=== PATIENT | male | born 1975 | race Caucasian/White ===

== ENCOUNTER 2018-12-21 18:07 | Emergency (ER) | payer OTHER ==
[2018-12-21] MEDS ORDERED: ONDANSETRON 4 MG/2 ML VIAL ONE (18:37)
[2018-12-21] MEDS ORDERED: FENTANYL CITR 100 MCG/2 ML ONE ×2 (18:37→21:26)
[2018-12-21 18:56] LABS: Absolute Lymphocytes (CBC) 0.7 K/uL (0.7-4.9); Absolute Monocytes 0.7 K/uL (0.1-1.3); Absolute Neutrophil 7.7 K/uL (1.8-8.0); Basophils % 0.9 % (0-1.3); Eosinophils % 3.3 % (0-4.4); Hematocrit 31.6 % (39.6-49.0); Lymphocytes % 7.2 % (15.3-44.8); MPV 7.4 fL (7.6-11.3); Monocytes % 7.6 % (3.3-12.3); RBC Red Blood Cell Count 3.14 M/uL (4.33-5.43)
[2018-12-21 19:02] LABS: Protime INR 1.43
[2018-12-21] MEDS ORDERED: LEVALBUTEROL 1.25 MG/3 ML NEB ONE (19:08)
[2018-12-21] MEDS ORDERED: FUROSEMIDE 100 MG/10 ML VIAL IV ONE (19:09)
--- NOTE | 2018-12-21 19:11 | RAD REPORT ---
EXAM DESCRIPTION: RAD - Chest Single View - 12/21/2018 6:51 pm CLINICAL HISTORY: Shortness of breath, chest pain, history of cirrhosis COMPARISON: None. TECHNIQUE: AP portable chest image was obtained 1845 hour . FINDINGS: Lung volumes are low. Left base parenchymal opacification is present. Small left pleural e ffusion is evident. Heart and vasculature are normal. No pneumothorax. No acute bony abnormality seen . No acute aortic findings suspected. IMPRESSION: Small left pleural effusion with left base parenchymal opacification that could be pneum onia, atelectasis or a combination.
[2018-12-21 19:32] LABS: ALT/SGPT 56 U/L (12-78); AST/SGOT 102 U/L (15-37); Albumin 1.5 g/dL (3.4-5.0); Alkaline Phosphatase 116 U/L (45-117); BUN Blood Urea Nitrogen 18 mg/dL (7-18); Bicarbonate 23 mmol/L (21-32); Bilirubin Direct 0.9 mg/dL (0-0.2); Bilirubin Total 1.7 mg/dL (0.2-1.0); CKMB Creatine Kinase MB 2.7 ng/mL (0.3-3.6); Creatine Phosphokinase 141 U/L (39-308); Glucose Level 132 mg/dL (74-106); Lipase 240 U/L (73-393); Potassium 4.3 mmol/L (3.5-5.1); Protein, Total 5.4 g/dL (6.4-8.2); Sodium Level 139 mmol/L (136-145); Troponin (Emerg Dept Use Only) 0.02 ng/mL (0.0-0.045)
[2018-12-21 19:49] LABS: NT PRO-BNP 602 pg/mL (<125)
[2018-12-21] MEDS ORDERED: NA CHLORIDE 0.9% 250 ML ONE (20:03)
[2018-12-21] MEDS ORDERED: CEFTRIAXONE/SWI 1gm 1 GM/10 ML SYR ONE (20:03)
[2018-12-21] MEDS ORDERED: AZITHROMYCIN 500 MG INJ IVPB ONE (20:03)
[2018-12-21] MEDS ORDERED: DIAZEPAM 10 MG/2 ML INJ SYRINGE ONE (20:10)
--- NOTE | 2018-12-21 20:14 | EDPHYS ---
Physician Documentation [facility] Name: Poli Frankel Jr Age: 43 yrs Sex: Male : 1975 Arrival Date: 12/21/2018 Time: 18:10 Bed 5 Private MD: ED Physician Mariano Reese HPI: 12/21 18:30 This 43 yrs old Male presents to ER via Wheelchair with complaints of jr8 Swelling, Shortness Of Breath. 18:30 Onset: The symptoms/episode began/occurred gradually, 1 week(s) ago. Associated signs jr8 and symptoms: Pertinent positives: cough, shortness of breath, abdominal swelling and edema, Pertinent negatives: chest pain, constipation, diarrhea, fever, vomiting. Modifying factors: the patient symptoms are aggravated by activity, talking. The patient has experienced similar episodes in the past, with the last episode occurring 2 month(s) ago. The patient has not recently seen a physician. Patient reports a history of cirrhosis with multiple admissions to [facility] for paracentesis. He was last admitted in October but left the hospital AMA before he had a successful paracentesis performed. He states since then he has had gradual worsening of his ascites and pedal edema, and came in today because he was having increased SOB. Denies fever. Reports cough. . Historical: - Allergies: 18:11 No Known Allergies; aa5 - PMHx: 18:11 Cirrhosis; aa5 - PSHx: 18:11 Hernia repair; eye sx; Appendectomy; aa5 - Immunization history:: Flu vaccine is not up to date. - Social history:: Smoking status: Patient/guardian denies using tobacco. - Ebola Screening: : No symptoms or risks identified at this time. ROS: 18:30 ENT: Negative for injury, pain, and discharge, Cardiovascular: Negative for chest pain, jr8 palpitations, and edema. 18:30 MS/Extremity: Negative for injury and deformity, Skin: Negative for injury, rash, and discoloration, Neuro: Negative for headache, weakness, numbness, tingling, and seizure. 18:30 Constitutional: Positive for malaise, poor PO intake, Negative for body aches, chills, fever. 18:30 Respiratory: Positive for cough, orthopnea, shortness of breath, Negative for sputum production, wheezing. 18:30 Abdomen/GI: Positive for abdominal distension, Negative for nausea, vomiting, and diarrhea. Exam: 18:49 ENT: Nares patent. No nasal discharge, no septal abnormalities noted. Tympanic jr8 membranes are normal and external auditory canals are clear. Oropharynx with no redness, swelling, or masses, exudates, or evidence of obstruction, uvula midline. Mucous membranes moist. 18:49 Back: No spinal tenderness. No costovertebral tenderness. Full range of motion. Skin: Warm, dry with normal turgor. Normal color with no rashes, no lesions, and no evidence of cellulitis. 18:49 MS/ Extremity: Pulses equal, no cyanosis. Neurovascular intact. Full, normal range of motion. Neuro: Awake and alert, GCS 15, oriented to person, place, time, and situation. Cranial nerves II-XII grossly intact. Motor strength 5/5 in all extremities. Sensory grossly intact. Cerebellar exam normal. Normal gait. 18:49 Constitutional: The patient appears alert, awake, agitated, anxious, in obvious distress, mildly distressed. 18:49 Head/face: Noted is 18:49 Eyes: Pupils: equal, round, and reactive to light and accomodation, Extraocular movements: intact throughout, Conjunctiva: pale, Sclera: icterus, is present. 18:49 Cardiovascular: Rate: tachycardic, Rhythm: regular, Heart sounds: normal, no murmur, no rub, no gallop, Edema: 4+ edema to level of left lower thigh, left knee, left midcalf, left ankle, left foot, left toes, right lower thigh, right knee, right midcalf, right ankle, right foot and right toes. 18:49 Respiratory: mild respiratory distress is noted, Respirations: labored breathing, that is mild, pursed lip breathing, that is mild, tachypnea, that is mild, Breath sounds: are clear throughout. 18:49 Abdomen/GI: Inspection: distension, that is severe, Bowel sounds: normal, Palpation: nontender, in all quadrants, organomegaly is appreciated, hepatomegaly, Rectal exam: Indicators: Liver: is enlarged, ascites present. 18:49 Musculoskeletal/extremity: 18:54 ECG was reviewed by the Attending Physician. [facility] Vital Signs: 18:14 BP 165 / 138; Pulse 121; Resp 24 S; Temp 99.5(O); Pulse Ox 99% on R/A; Pain 10/10; aa5 19:12 BP 160 / 100; Pulse 115; Resp 18; Pulse Ox 98% on R/A; la1 20:06 BP 171 / 105; Pulse 115; Resp 18; Pulse Ox 98% on R/A; la1 20:59 BP 157 / 99; Pulse 111; Resp 20; Temp 99.3; Pulse Ox 99% on R/A; la1 21:33 BP 138 / 88; Pulse 111; Resp 16; Pulse Ox 98% on R/A; la1 MDM: 18:15 Patient medically screened. 8 18:52 Data reviewed: vital signs, nurses notes, EKG. Awaiting: labs results, X-ray results. [facility] 20:12 Data reviewed: lab test result(s), radiologic studies, plain films. Data interpreted: 8 Pulse oximetry: on room air is 98 %. Interpretation: normal. Counseling: I had a detailed discussion with the patient and/or guardian regarding: the historical points, exam findings, and any diagnostic results supporting the discharge/admit diagnosis, lab results, radiology results, the need to transfer to another facility, [facility] does not immediately have the required specialist. ED course: Dr. Drake consulted at [facility]. Accepted patient for further work up . 12/21 18:28 Order name: Basic Metabolic Panel; Complete Time: 19:55 12/21 18:28 Order name: Blood Culture Adult (2) [facility] 12/21 18:28 Order name: CBC with Diff; Complete Time: 19:11 [facility] 12/21 18:28 Order name: Ckmb; Complete Time: 19:55 [facility] 12/21 18:28 Order name: CPK; Complete Time: 19:55 [facility] 12/21 18:28 Order name: Lactate; Complete Time: 19:37 [facility] 12/21 18:28 Order name: LFT's; Complete Time: 19:55 [facility] 12/21 18:28 Order name: Lipase; Complete Time: 19:55 [facility] 12/21 18:28 Order name: Procalcitonin; Complete Time: 19:41 [facility] 12/21 18:28 Order name: Protime (+inr); Complete Time: 19:11 12/21 18:28 Order name: Ptt, Activated; Complete Time: 19:11 12/21 18:28 Order name: Troponin (emerg Dept Use Only); Complete Time: 19:55 12/21 18:28 Order name: AMMONIA; Complete Time: 19:15 12/21 18:28 Order name: Chest Single View XRAY; Complete Time: 19:12 12/21 18:28 Order name: Accucheck; Complete Time: 18:52 12/21 18:28 Order name: Cardiac monitoring; Complete Time: 18:35 12/21 18:28 Order name: EKG - Nurse/Tech; Complete Time: 18:52 12/21 18:28 Order name: IV Saline Lock - Large Bore; Complete Time: 18:36 12/21 18:28 Order name: Labs collected and sent; Complete Time: 18:36 12/21 19:37 Order name: NT PRO-BNP; Complete Time: 19:55 EDMS 12/21 18:28 Order name: O2 Per Protocol; Complete Time: 18:36 12/21 18:28 Order name: O2 Sat Monitoring; Complete Time: 18:36 12/21 18:28 Order name: Urine Dipstick-Ancillary (obtain specimen); Complete Time: 18:52 jr8 EC:37 Rate is 105 beats/min. Rhythm is regular. QRS [place] is Normal. RI interval is normal. jr8 QRS interval is normal. No ST changes noted. Interpreted by me. Reviewed by me. Administered Medications: 18:35 Drug: fentaNYL (PF) 75 mcg Route: IVP; Site: right jugular; la1 21:00 Follow up: Response: No adverse reaction; Pain is decreased la1 18:35 Drug: Zofran 4 mg Route: IVP; Site: right jugular; la1 21:00 Follow up: Response: No adverse reaction la1 19:13 Drug: Xopenex (3) 1.25 mg Route: Inhalation; la1 19:13 Drug: Lasix 60 mg Route: IVP; Site: right jugular; la1 21:00 Follow up: Response: pt diuresing, la1 20:06 Drug: Valium 2 mg Route: IVP; Site: right jugular; la1 21:00 Follow up: Response: No adverse reaction la1 20:07 Drug: Rocephin 1 grams Route: IV; Rate: calculated rate; Site: right jugular; la1 21:33 Follow up: IV Status: Completed infusion la1 20:07 Drug: Zithromax 500 mg Route: IVPB; Infused Over: 1 hrs; Site: right jugular; la1 21:00 Follow up: IV Status: Completed infusion la1 21:33 Follow up: IV Status: Completed infusion la1 21:20 Drug: fentaNYL (PF) 50 mcg Route: IVP; Site: right jugular; la1 21:33 Follow up: Response: No adverse reaction; Pain is decreased la1 Disposition: 12/22 09:10 Co-signature as Attending Physician, Mariano Reese MD I agree with the assessment and hali plan of care. Disposition: 12/21/18 20:14 Transfer ordered to [facility]. Diagnosis are Alcoholic cirrhosis of liver with ascites, Sepsis, Pneumonia due to other specified bacteria. - Reason for transfer: Higher level of care. - Accepting physician is Dr. Drake. - Condition is Fair. - Problem is new. - Symptoms have improved. Signatures: Dispatcher [employer] [facility] Mariano Reese MD MD cha Calderon, Audri, RN RN aa5 James Oscar PA PA jr8 Elijah Marie RN RN la1 Corrections: (The following items were deleted from the chart) 12/21 19:36 18:48 PROBNP+C.LAB.BRZ ordered. [facility] 21:34 20:14 12/21/2018 20:14 Transfer ordered to [facility]. Diagnosis is la1 Alcoholic cirrhosis of liver with ascites; Sepsis; Pneumonia due to other specified bacteria. Reason for transfer: Higher level of care. Accepting physician is Dr. Drake. Condition is Fair. Problem is new. Symptoms have improved. jr8
--- NOTE | 2018-12-21 20:14 | ER ---
Nurse's Notes [facility] Name: Poli Frankel Jr Age: 43 yrs Sex: Male : 1975 Arrival Date: 12/21/2018 Time: 18:10 Bed 5 Private MD: Diagnosis: Alcoholic cirrhosis of liver with ascites;Sepsis;Pneumonia due to other specified bacteria Presentation: 12/21 18:12 Presenting complaint: Patient states: "I am hurting everywhere, I have back spasms". Pt aa5 also c/o SOB. Symptoms began 4-5 days ago. Transition of care: patient was not received from another setting of care. Onset of symptoms was December 2018. Risk Assessment: Do you want to hurt yourself or someone else? Patient reports no desire to harm self or others. Care prior to arrival: None. 18:12 Method Of Arrival: Wheelchair aa5 18:12 Acuity: EMMA 2 aa5 Historical: - Allergies: 18:11 No Known Allergies; aa5 - PMHx: 18:11 Cirrhosis; aa5 - PSHx: 18:11 Hernia repair; eye sx; Appendectomy; aa5 - Immunization history:: Flu vaccine is not up to date. - Social history:: Smoking status: Patient/guardian denies using tobacco. - Ebola Screening: : No symptoms or risks identified at this time. Screenin:37 Abuse screen: Denies threats or abuse. Nutritional screening: No deficits noted. la1 Tuberculosis screening: No symptoms or risk factors identified. Fall Risk None identified. Assessment: 18:36 General: Appears uncomfortable, Behavior is cooperative, anxious. Pain: Complains of la1 pain in lumbar area, left low back and right low back. Neuro: Level of Consciousness is awake, alert, obeys commands, Oriented to person, place, time, situation. Cardiovascular: Heart tones S1 S2 present Capillary refill < 3 seconds Rhythm is sinus tachycardia. Cardiovascular: Edema is 3+ to left midcalf, left ankle, right midcalf and right ankle. Respiratory: Airway is patent Trachea midline Respiratory effort is even, unlabored, Respiratory pattern is regular, symmetrical, Breath sounds are clear bilaterally. GI: Abdomen is distended, obese, noted to have ascites. : No signs and/or symptoms were reported regarding the genitourinary system. Vital Signs: 18:14 BP 165 / 138; Pulse 121; Resp 24 S; Temp 99.5(O); Pulse Ox 99% on R/A; Pain 10/10; aa5 19:12 BP 160 / 100; Pulse 115; Resp 18; Pulse Ox 98% on R/A; la1 20:06 BP 171 / 105; Pulse 115; Resp 18; Pulse Ox 98% on R/A; la1 20:59 BP 157 / 99; Pulse 111; Resp 20; Temp 99.3; Pulse Ox 99% on R/A; la1 21:33 BP 138 / 88; Pulse 111; Resp 16; Pulse Ox 98% on R/A; la1 ED Course: 18:10 Patient arrived in ED. as 18:11 Arm band placed on. aa5 18:13 Triage completed. aa5 18:15 James Oscar PA is PHCP. jr8 18:15 Mariano Reese MD is Attending Physician. jr8 18:34 Elijah Marie RN is Primary Nurse. la1 18:38 Placed in gown. Bed in low position. Call light in reach. blemish remover on. Pulse ox la1 on. NIBP on. 18:38 No provider procedures requiring assistance completed. Inserted saline lock: 20 gauge la1 in right EJ, using aseptic technique. Blood collected. 18:43 EKG done, by ED staff, reviewed by James JUSTICE. jb1 18:51 Chest Single View XRAY In Process Unspecified. EDMS 21:33 Patient transferred, IV remains in place. la1 Administered Medications: 18:35 Drug: fentaNYL (PF) 75 mcg Route: IVP; Site: right jugular; la1 21:00 Follow up: Response: No adverse reaction; Pain is decreased la1 18:35 Drug: Zofran 4 mg Route: IVP; Site: right jugular; la1 21:00 Follow up: Response: No adverse reaction la1 19:13 Drug: Xopenex (3) 1.25 mg Route: Inhalation; la1 19:13 Drug: Lasix 60 mg Route: IVP; Site: right jugular; la1 21:00 Follow up: Response: pt sunny, la1 20:06 Drug: Valium 2 mg Route: IVP; Site: right jugular; la1 21:00 Follow up: Response: No adverse reaction la1 20:07 Drug: Rocephin 1 grams Route: IV; Rate: calculated rate; Site: right jugular; la1 21:33 Follow up: IV Status: Completed infusion la1 20: Drug: Zithromax 500 mg Route: IVPB; Infused Over: 1 hrs; Site: right jugular; la1 21:00 Follow up: IV Status: Completed infusion la1 21:33 Follow up: IV Status: Completed infusion la1 21:20 Drug: fentaNYL (PF) 50 mcg Route: IVP; Site: right jugular; la1 21:33 Follow up: Response: No adverse reaction; Pain is decreased la1 Outcome: 20:14 ER care complete, transfer ordered by MD. chun 21:33 Transferred by ground EMS to [facility]. la1 :33 Condition: stable 21:33 Instructed on the need for transfer. 21:34 Patient left the ED. la1 Signatures: Dispatcher [employer] EDMS Scott Schwab jb1 Chelsea Cuellar Audri, RN RN aa5 James Oscar PA PA jr8 Elijah Marie RN RN la1
--- NOTE | 2018-12-22 08:16 | EKG ---
Test Date: 2018-12-21 Test Time: 18:37:57 [place]: ESTHELA MEASUREMENT RESULTS: Intervals: Rate: 105 RI: 138 QRSD: 86 QT: 346 QTc: 457 [place]: P: 24 RI: 138 QRS: 7 T: 70 INTERPRETIVE STATEMENTS: Sinus tachycardia Nonspecific T wave abnormality Abnormal ECG No previous ECG available for comparison Electronically Signed On 12-22-18 08:15:51 CDT by Alexey Rodriguez
== END 2018-12-21 21:34 | disposition short-term general hospital (02) ==
LOC: ER 18:07
DX: K70.31 Alcoholic cirrhosis of liver with ascites (principal); A41.9 Sepsis, unspecified organism; J15.8 Pneumonia due to other specified bacteria
CPT/HCPCS: 96365; 96368; 93005; 87040 ×2; 85025; 80048; 36415; 82140; 82550; 85610; 80076; 83605; 85730; 84484; 82553; 83690; 84145; 83880; 71045; 96375; 99285; J0456; J3360; J3010 ×2; J0696; J2405

== ENCOUNTER 2019-03-26 06:08 | Inpatient (IN) | payer OTHER ==
--- OUTSIDE RECORDS SUMMARY | 2019-03-26 06:12 | XMS REPORT ---
:1975 [facility] [address] [place] [address] Dr. Willingham [address] [place] [id number] Care Team Providers Name Role Phone FAUZIA MCGRATH Unavailable Unavailable Problems This patient has no known problems. Allergies, Adverse Reactions, Alerts This patient has no known allergies or adverse reactions. Medications This patient has no known medications. Encounters Start End Encounter Admission Attending Care Care Encounter Date/Time Date/Time Type Type Clinicians Facility Department ID 2019-01-12 Outpatient [facility] 9601 16:13:33 2019-01-12 Inpatient [facility] 8135 16:12:59 Results Test Description Test Time Test Comments Text Results Atomic Results Result Comments MISCELLANEOUS LAB ORDER 2018-12-29 12:46:00 Test Item Value Reference Range Comments SCAN RESULT (test kwbj=[id number]) BLOOD [id number] 08:00:00 Test Item Value Reference Range Comments CULTURE (BEAKER) (test csyc=0308) No growth in 5 days BLOOD [id number] 08:00:00 Test Item Value Reference Range Comments CULTURE (BEAKER) (test gfch=9063) No growth in 5 days BLOOD [id number] 08:01:00 Test Item Value Reference Range Comments CULTURE (BEAKER) (test calp=1179) No growth in 5 days BLOOD [id number] 08:01:00 Test Item Value Reference Range Comments CULTURE (BEAKER) (test ntnj=2579) No growth in 5 days HEPATITIS C PCR, [id number] 09:35:00 Test Item Value Reference Range Comments HCV NUMERIC RESULT (BEAKER) (test xyxs=5288) 33839 IU/mL <15 This test uses a Real-Time Polymerase Chain Reaction (RT-PCR) methodology and was performed using BANDAR Ampliprep/BANDAR TaqMan HCV test kit version 2.0 ( [employer]).Reportable range for this assay is 15 - 100,000, 000 IU per mL (1.18 - 8.00 Log IU/mL).BASIC METABOLIC [id number] 06:42:00 Test Item Value Reference Range Comments SODIUM (BEAKER) (test 132 meq/L 136-145 jlfz=191) POTASSIUM (BEAKER) (test 3.9 meq/L 3.5-5.1 vcgs=795) CHLORIDE (BEAKER) (test 103 meq/L 98-107 juuy=789) CO2 (BEAKER) (test 27 meq/L 22-29 bjlk=449) BLOOD UREA NITROGEN 10 mg/dL 7-21 (BEAKER) (test tnvf=171) CREATININE (BEAKER) (test 0.61 mg/dL 0.57-1.25 xjem=115) GLUCOSE RANDOM (BEAKER) 95 mg/dL 70-105 (test agxf=049) CALCIUM (BEAKER) (test 7.3 mg/dL 8.4-10.2 rbrz=483) EGFR (BEAKER) (test 143 mL/min/1.73 sq m ESTIMATED GFR IS NOT eapd=7699) ACCURATE CREATININE CLEARANCE IN PREDICTING GLOMERULAR FILTRATION RATE. ESTIMATED GFR IS NOT APPLICABLE FOR DIALYSIS PATIENTS. [id number] 06:17:00 Test Item Value Reference Range Comments MAGNESIUM (BEAKER) (test nkkk=946) 1.5 mg/dL 1.6-2.6 U/S, DUPLEX, [id number] 14:38:00Ultrasound abdomen with doppler Patient is pending discharge Reason for exam:->with doppler - cirrhosis, HCC screen, evaluate portal vein and biliary systemFINAL REPORT Abdominal Doppler Ultrasound Clinical Diagnosis: Cirrhosis hepatocellular carcinoma screening and portal vein evaluation.Comparison: No comparison Technique: Multiple transaxial and longitudinal images were obtained through the abdomen with real time ultrasonography. In addition, color Doppler and spectral waveform analysis evaluation of the abdominal vasculaturewas performed. Five MHz transducer was utilized. 83 images were submitted for interpretation. Report:Liver: The liver measures 12.1 cm in the right midaxillary line. There are no focal masses. Theechogenicity is increased.Spleen: The spleen measures 15.6 cm in the left mid axillary line. Gallbladder: The transverse diameter is two cm. The wall measures five mm. There are shadowing stones visualized. The gallbladder is contracted Biliary tree: There is no evidence of intra or extra hepatic biliary ductal dilatation. The common bile duct was not seen. Portal vein: The portal vein measures nine mm. Pancreas: The pancreatic tail is not well seen secondary to overlying bowel gas.Ascites: MildPleural Effusion: Positive right-sided and trace leftRight kidney: The right kidney measures 12.3 cm in length without evidence of hydronephrosis.Left kidney: The left kidney measures 13.4 cm in length without evidence of hydronephrosis.Midline abdominal structures: IVC : VisualizedHepatic veins: The hepatic venous confluence was visualized. The intrahepatic veins were not well seen.Aorta dimensions: Maximum transverse dimension of aorta measured 2.4 cm proximallyHepatic arteries: The proper hepatic, right hepatic and left hepatic arteries are remarkable for nonspecific increased resistive index in the proper hepatic artery and left hepatic artery. Normal arterial waveforms were documentedPortal vein: The peak systolic velocity measured 28.3 cm/sec which is within normal limits.The direction of flow is hepatopedal. The right portal vein is visualized with hepatopedal flow. The left portal vein is visualized with hepatopedal flow. Splenic vein: The splenic vein at the portalconfluence is not adequately visualized. Impression:Cirrhosisascitescontracted gallbladder withcholelithiasispleural effusions right greater than leftInadequate visualization of the nikki hepatismidline abdominal structures splenic vein and the right and left hepatic veins Signed: Kel Martinez Verified Date/Time: 12/25/2018 14:38:51 Reading Location: [address] Ultrasound Reading Room RAD, CHEST, 1 VIEW, NON [id number] 08:59:00Reason for exam:->follow up pnaShould this be performed at the bedside?->YesFINAL REPORT Chest one view. Clinical history: follow up pna Comparison: December 22, 2018 Discussion: A frontal chest is provided. Cardiomediastinal contours are unchanged. Left lower lobe opacity seen on the prior exam has essentially resolved. There is no pneumothorax, orpleural effusion. No acute bony abnormality. Signed: Maritza, Abbie MDReport Verified Date/Time: 12/25/2018 08:59:58 Reading Location: [facility] Radiology Reading Room CALCIUM, [id number] 06:19:00 Test Item Value Reference Range Comments CALCIUM IONIZED (BEAKER) (test ypvw=207) 1.01 mmol/L 1.12-1.27 PH, BLOOD (BEAKER) (test wlks=2039) 7.45 CBC W/PLT COUNT & AUTO [id number] 05:59:00 Test Item Value Reference Range Comments WHITE BLOOD CELL COUNT (BEAKER) (test mftt=567) 6.3 K/ L 3.5-10.5 RED BLOOD CELL COUNT (BEAKER) (test pcmd=826) 2.63 M/ L 4.63-6.08 HEMOGLOBIN (BEAKER) (test cidy=914) 8.9 GM/DL 13.7-17.5 HEMATOCRIT (BEAKER) (test zwfb=743) 27.0 % 40.1-51.0 MEAN CORPUSCULAR VOLUME (BEAKER) (test jumx=275) 102.7 fL 79.0-92.2 MEAN CORPUSCULAR HEMOGLOBIN (BEAKER) (test 33.8 pg 25.7-32.2 pbpt=897) MEAN CORPUSCULAR HEMOGLOBIN CONC (BEAKER) (test 33.0 GM/DL 32.3-36.5 fmmr=521) RED CELL DISTRIBUTION WIDTH (BEAKER) (test 15.4 % 11.6-14.4 kwcq=512) PLATELET COUNT (BEAKER) (test eqgc=593) 107 K/CU MM 150-450 MEAN PLATELET VOLUME (BEAKER) (test srnd=331) 9.3 fL 9.4-12.4 NUCLEATED RED BLOOD CELLS (BEAKER) (test 0 /100 WBC 0-0 wffv=371) NEUTROPHILS RELATIVE PERCENT (BEAKER) (test 61 % vzey=423) LYMPHOCYTES RELATIVE PERCENT (BEAKER) (test 17 % zznj=774) MONOCYTES RELATIVE PERCENT (BEAKER) (test 12 % brvj=258) EOSINOPHILS RELATIVE PERCENT (BEAKER) (test 10 % tctu=702) BASOPHILS RELATIVE PERCENT (BEAKER) (test 1 % ugcp=767) NEUTROPHILS ABSOLUTE COUNT (BEAKER) (test 3.81 K/ L 1.78-5.38 zlfe=560) LYMPHOCYTES ABSOLUTE COUNT (BEAKER) (test 1.07 K/ L 1.32-3.57 mzfr=952) MONOCYTES ABSOLUTE COUNT (BEAKER) (test 0.72 K/ L 0.30-0.82 sogg=666) EOSINOPHILS ABSOLUTE COUNT (BEAKER) (test 0.60 K/ L 0.04-0.54 evtw=771) BASOPHILS ABSOLUTE COUNT (BEAKER) (test 0.04 K/ L 0.01-0.08 dfnz=698) IMMATURE GRANULOCYTES-RELATIVE PERCENT (BEAKER) 1 % 0-1 (test nkvu=2585) BASIC METABOLIC [id number] 05:43:00 Test Item Value Reference Range Comments SODIUM (BEAKER) (test 136 meq/L 136-145 mgco=605) POTASSIUM (BEAKER) (test 4.1 meq/L 3.5-5.1 wdwc=116) CHLORIDE (BEAKER) (test 107 meq/L 98-107 fvkf=016) CO2 (BEAKER) (test 27 meq/L 22-29 yrrl=509) BLOOD UREA NITROGEN 11 mg/dL 7-21 (BEAKER) (test kcqc=555) CREATININE (BEAKER) (test 0.62 mg/dL 0.57-1.25 drds=856) GLUCOSE RANDOM (BEAKER) 90 mg/dL 70-105 (test cynf=027) CALCIUM (BEAKER) (test 7.7 mg/dL 8.4-10.2 ntgx=559) EGFR (BEAKER) (test 140 mL/min/1.73 sq m ESTIMATED GFR IS NOT huyr=8100) ACCURATE CREATININE CLEARANCE IN PREDICTING GLOMERULAR FILTRATION RATE. ESTIMATED GFR IS NOT APPLICABLE FOR DIALYSIS PATIENTS. [id number] 05:42:00 Test Item Value Reference Range Comments PHOSPHORUS (BEAKER) (test xdda=310) 3.0 mg/dL 2.3-4.7 [id number] 05:42:00 Test Item Value Reference Range Comments MAGNESIUM (BEAKER) (test iixl=229) 1.4 mg/dL 1.6-2.6 VANCOMYCIN LEVEL, [id number] 12:04:00 Test Item Value Reference Range Comments VANCOMYCIN TROUGH (BEAKER) (test dzyy=432) 16.5 ug/mL 10.0-20.0 ANTI-NUCLEAR ANTIBODY (OTIS)2018-12-24 09:42:00 Test Item Value Reference Range Comments ANTI-NUCLEAR ANTIBODY (OTIS) (BEAKER) (test Negative Negative mfqc=477) Test performed by IFA method.Test performed by IFA method.CBC W/PLT COUNT & AUTO [id number] 07:52:00 Test Item Value Reference Range Comments WHITE BLOOD CELL COUNT (BEAKER) (test meeo=430) 4.9 K/ L 3.5-10.5 RED BLOOD CELL COUNT (BEAKER) (test cxkx=742) 2.43 M/ L 4.63-6.08 HEMOGLOBIN (BEAKER) (test lrqq=784) 8.3 GM/DL 13.7-17.5 HEMATOCRIT (BEAKER) (test kiqm=101) 24.8 % 40.1-51.0 MEAN CORPUSCULAR VOLUME (BEAKER) (test aavq=485) 102.1 fL 79.0-92.2 MEAN CORPUSCULAR HEMOGLOBIN (BEAKER) (test 34.2 pg 25.7-32.2 dcgi=629) MEAN CORPUSCULAR HEMOGLOBIN CONC (BEAKER) (test 33.5 GM/DL 32.3-36.5 fjsu=040) RED CELL DISTRIBUTION WIDTH (BEAKER) (test 15.6 % 11.6-14.4 ksad=824) PLATELET COUNT (BEAKER) (test cyfk=232) 96 K/CU MM 150-450 MEAN PLATELET VOLUME (BEAKER) (test irtq=944) 9.3 fL 9.4-12.4 NUCLEATED RED BLOOD CELLS (BEAKER) (test 0 /100 WBC 0-0 hsur=316) NEUTROPHILS RELATIVE PERCENT (BEAKER) (test 52 % avpb=339) LYMPHOCYTES RELATIVE PERCENT (BEAKER) (test 20 % azpz=198) MONOCYTES RELATIVE PERCENT (BEAKER) (test 14 % xwxi=714) EOSINOPHILS RELATIVE PERCENT (BEAKER) (test 13 % ednl=944) BASOPHILS RELATIVE PERCENT (BEAKER) (test 1 % vmtg=603) NEUTROPHILS ABSOLUTE COUNT (BEAKER) (test 2.51 K/ L 1.78-5.38 vsgq=403) LYMPHOCYTES ABSOLUTE COUNT (BEAKER) (test 0.99 K/ L 1.32-3.57 kpmn=759) MONOCYTES ABSOLUTE COUNT (BEAKER) (test icyh=908) 0.70 K/ L 0.30-0.82 EOSINOPHILS ABSOLUTE COUNT (BEAKER) (test 0.62 K/ L 0.04-0.54 neku=700) BASOPHILS ABSOLUTE COUNT (BEAKER) (test wsva=015) 0.04 K/ L 0.01-0.08 IMMATURE GRANULOCYTES-RELATIVE PERCENT (BEAKER) 0 % 0-1 (test vdoz=2805) COMPREHENSIVE METABOLIC [id number] 07:34:00 Test Item Value Reference Range Comments TOTAL PROTEIN (BEAKER) 4.6 gm/dL 6.0-8.3 (test dlmm=138) ALBUMIN (BEAKER) (test 2.1 g/dL 3.5-5.0 tneq=7299) ALKALINE PHOSPHATASE 83 U/L 40-150 (BEAKER) (test eafj=265) BILIRUBIN TOTAL (BEAKER) 1.6 mg/dL 0.2-1.2 (test mbcl=492) SODIUM (BEAKER) (test 136 meq/L 136-145 iuvy=811) POTASSIUM (BEAKER) (test 4.1 meq/L 3.5-5.1 koga=459) CHLORIDE (BEAKER) (test 107 meq/L 98-107 jvby=097) CO2 (BEAKER) (test 26 meq/L 22-29 mhvw=650) BLOOD UREA NITROGEN 11 mg/dL 7-21 (BEAKER) (test lspi=864) CREATININE (BEAKER) (test 0.60 mg/dL 0.57-1.25 fslu=575) GLUCOSE RANDOM (BEAKER) 90 mg/dL 70-105 (test rkbi=605) CALCIUM (BEAKER) (test 7.6 mg/dL 8.4-10.2 qmjw=473) AST (SGOT) (BEAKER) (test 75 U/L 5-34 ioxl=766) ALT (SGPT) (BEAKER) (test 30 U/L 6-55 nexg=237) EGFR (BEAKER) (test 146 mL/min/1.73 sq ESTIMATED GFR IS NOT arlz=1838) m ACCURATE CREATININE CLEARANCE IN PREDICTING GLOMERULAR FILTRATION RATE. ESTIMATED GFR IS NOT APPLICABLE FOR DIALYSIS PATIENTS. [id number] 07:24:00 Test Item Value Reference Range Comments PHOSPHORUS (BEAKER) (test syyj=943) 3.0 mg/dL 2.3-4.7 [id number] 07:24:00 Test Item Value Reference Range Comments MAGNESIUM (BEAKER) (test sbfv=167) 1.2 mg/dL 1.6-2.6 CALCIUM, [id number] 06:56:00 Test Item Value Reference Range Comments CALCIUM IONIZED (BEAKER) (test yfih=177) 1.04 mmol/L 1.12-1.27 PH, BLOOD (BEAKER) (test ydfa=4879) 7.46 HEMOGLOBIN AND [id number] 13:00:00 Test Item Value Reference Range Comments HEMOGLOBIN (BEAKER) (test rmsd=807) 8.6 GM/DL 13.7-17.5 HEMATOCRIT (BEAKER) (test nvrv=057) 25.3 % 40.1-51.0 [id number] 09:54:00 Test Item Value Reference Range Comments ALPHA-1 ANTITRYPSIN (BEAKER) (test ipzt=738) 151.30 mg/dL 90.00-200.00 HEPATITIS C [id number] 08:34:00 Test Item Value Reference Range Comments HEPATITIS C ANTIBODY (BEAKER) (test zppc=960) Reactive Nonreactive [id number] 08:12:00 Test Item Value Reference Range Comments FERRITIN (BEAKER) (test qplv=533) 177 ng/mL 5-275 ALPHA FETOPROTEIN (AFP), TUMOR [id number] 07:23:00 Test Item Value Reference Range Comments ALPHA-FETOPROTEIN (BEAKER) (test humc=8408) < ng/mL <10.0 HEPATITIS B SURFACE [id number] 07:23:00 Test Item Value Reference Range Comments HEPATITIS B SURFACE ANTIBODY (BEAKER) (test < mIU/mL <8.0 vjkr=208) CALCIUM, [id number] 07:03:00 Test Item Value Reference Range Comments CALCIUM IONIZED (BEAKER) (test viqh=553) 1.00 mmol/L 1.12-1.27 PH, BLOOD (BEAKER) (test kxst=7485) 7.47 COMPREHENSIVE METABOLIC [id number] 06:56:00 Test Item Value Reference Range Comments TOTAL PROTEIN (BEAKER) 4.5 gm/dL 6.0-8.3 (test fpcn=620) ALBUMIN (BEAKER) (test 1.8 g/dL 3.5-5.0 qvkn=9144) ALKALINE PHOSPHATASE 84 U/L 40-150 (BEAKER) (test jxxo=114) BILIRUBIN TOTAL (BEAKER) 1.3 mg/dL 0.2-1.2 (test jjyo=604) SODIUM (BEAKER) (test 135 meq/L 136-145 osgr=202) POTASSIUM (BEAKER) (test 3.9 meq/L 3.5-5.1 mzzb=361) CHLORIDE (BEAKER) (test 107 meq/L 98-107 eziy=166) CO2 (BEAKER) (test 26 meq/L 22-29 qipq=730) BLOOD UREA NITROGEN 14 mg/dL 7-21 (BEAKER) (test isck=309) CREATININE (BEAKER) (test 0.65 mg/dL 0.57-1.25 ggkc=701) GLUCOSE RANDOM (BEAKER) 95 mg/dL 70-105 (test tynh=686) CALCIUM (BEAKER) (test 7.7 mg/dL 8.4-10.2 ziaf=225) AST (SGOT) (BEAKER) (test 83 U/L 5-34 afsv=313) ALT (SGPT) (BEAKER) (test 33 U/L 6-55 jsoz=242) EGFR (BEAKER) (test 133 mL/min/1.73 sq ESTIMATED GFR IS NOT nivj=6293) m ACCURATE CREATININE CLEARANCE IN PREDICTING GLOMERULAR FILTRATION RATE. ESTIMATED GFR IS NOT APPLICABLE FOR DIALYSIS PATIENTS. HEPATITIS A ANTIBODY, [id number] 06:56:00 Test Item Value Reference Range Comments HEPATITIS A IGM ANTIBODY (BEAKER) (test Nonreactive Nonreactive dfav=893) HEPATITIS B CORE ANTIBODY, [id number] 06:56:00 Test Item Value Reference Range Comments HEPATITIS B CORE TOTAL ANTIBODY (BEAKER) (test Nonreactive Nonreactive nejh=909) HEPATITIS A ANTIBODY, [id number] 06:56:00 Test Item Value Reference Range Comments HEPATITIS A IGG ANTIBODY (BEAKER) (test Nonreactive Nonreactive gypo=3148) [id number] 06:55:00 Test Item Value Reference Range Comments PHOSPHORUS (BEAKER) (test ehcc=156) 3.1 mg/dL 2.3-4.7 [id number] 06:55:00 Test Item Value Reference Range Comments MAGNESIUM (BEAKER) (test rljv=118) 1.7 mg/dL 1.6-2.6 HEPATITIS B SURFACE [id number] 06:54:00 Test Item Value Reference Range Comments HEPATITIS B SURFACE ANTIGEN (2) (BEAKER) (test Nonreactive Nonreactive afoy=4719) B-TYPE NATRIURETIC FACTOR (BNP)2018-12-23 06:40:00 Test Item Value Reference Range Comments B-TYPE NATRIURETIC PEPTIDE (BEAKER) (test 141 pg/mL 0-100 wkeq=092) IRON, TIBC, % SAT. (WITHOUT FERRITIN)2018-12-23 06:33:00 Test Item Value Reference Range Comments IRON (BEAKER) (test xhdk=339) 51.0 ug/dL 40.0-160.0 TOTAL IRON BINDING CAPACITY (BEAKER) (test 134 ug/dL 250-450 padp=047) IRON % SATURATION (2) (BEAKER) (test twae=4534) 38 % 20-55 CBC W/PLT COUNT & AUTO [id number] 06:31:00 Test Item Value Reference Range Comments WHITE BLOOD CELL COUNT (BEAKER) (test kydf=486) 4.8 K/ L 3.5-10.5 RED BLOOD CELL COUNT (BEAKER) (test hewx=499) 2.28 M/ L 4.63-6.08 HEMOGLOBIN (BEAKER) (test tuyt=348) 7.9 GM/DL 13.7-17.5 HEMATOCRIT (BEAKER) (test kkqt=571) 23.3 % 40.1-51.0 MEAN CORPUSCULAR VOLUME (BEAKER) (test lsnm=567) 102.2 fL 79.0-92.2 MEAN CORPUSCULAR HEMOGLOBIN (BEAKER) (test 34.6 pg 25.7-32.2 ziuc=062) MEAN CORPUSCULAR HEMOGLOBIN CONC (BEAKER) (test 33.9 GM/DL 32.3-36.5 nsly=096) RED CELL DISTRIBUTION WIDTH (BEAKER) (test 15.6 % 11.6-14.4 ggks=368) PLATELET COUNT (BEAKER) (test jpjq=738) 87 K/CU MM 150-450 MEAN PLATELET VOLUME (BEAKER) (test ivck=509) 9.1 fL 9.4-12.4 NUCLEATED RED BLOOD CELLS (BEAKER) (test 0 /100 WBC 0-0 ilsh=073) NEUTROPHILS RELATIVE PERCENT (BEAKER) (test 51 % ptzm=288) LYMPHOCYTES RELATIVE PERCENT (BEAKER) (test 20 % irbj=385) MONOCYTES RELATIVE PERCENT (BEAKER) (test 17 % xdgz=459) EOSINOPHILS RELATIVE PERCENT (BEAKER) (test 12 % gmyc=357) BASOPHILS RELATIVE PERCENT (BEAKER) (test 1 % fwvr=664) NEUTROPHILS ABSOLUTE COUNT (BEAKER) (test 2.41 K/ L 1.78-5.38 fmpm=090) LYMPHOCYTES ABSOLUTE COUNT (BEAKER) (test 0.95 K/ L 1.32-3.57 rqcd=443) MONOCYTES ABSOLUTE COUNT (BEAKER) (test fhpk=353) 0.79 K/ L 0.30-0.82 EOSINOPHILS ABSOLUTE COUNT (BEAKER) (test 0.55 K/ L 0.04-0.54 nlii=199) BASOPHILS ABSOLUTE COUNT (BEAKER) (test ccrz=143) 0.04 K/ L 0.01-0.08 IMMATURE GRANULOCYTES-RELATIVE PERCENT (BEAKER) 1 % 0-1 (test tfdx=7733) [id number] 22:24:00 Test Item Value Reference Range Comments MAGNESIUM (BEAKER) (test nvnw=744) 0.9 mg/dL 1.6-2.6 CALCIUM, [id number] 22:15:00 Test Item Value Reference Range Comments CALCIUM IONIZED (BEAKER) (test qnnr=130) 0.93 mmol/L 1.12-1.27 PH, BLOOD (BEAKER) (test jysh=9419) 7.48 [id number] 22:14:00 Test Item Value Reference Range Comments PHOSPHORUS (BEAKER) (test aydr=362) 3.2 mg/dL 2.3-4.7 [id number] 22:14:00 Test Item Value Reference Range Comments SODIUM (BEAKER) (test ntzx=189) 134 meq/L 136-145 POTASSIUM (BEAKER) (test vazk=662) 4.1 meq/L 3.5-5.1 CHLORIDE (BEAKER) (test zoje=809) 103 meq/L 98-107 CO2 (BEAKER) (test mcal=244) 25 meq/L 22-29 CREATININE, RANDOM [id number] 18:59:00 Test Item Value Reference Range Comments CREATININE URINE (BEAKER) (test dyjm=593) 72.8 mg/dL Reference Range: No NormalsPROTEIN, RANDOM [id number] 18:59:00 Test Item Value Reference Range Comments PROTEIN, URINE (BEAKER) (test zsry=0155) 14 mg/dL 0-14 RAPID DRUG SCREEN, [id number] 18:59:00 Test Item Value Reference Range Comments BARBITURATE URINE (BEAKER) (test ihps=353) Negative Negative BENZODIAZEPINE SCREEN URINE (BEAKER) (test Negative Negative zrqf=630) COCAINE (METAB.) SCREEN (BEAKER) (test ihji=9576) Negative Negative METHADONE SCREEN (BEAKER) (test hrud=5753) Negative Negative OPIATE SCREEN URINE (BEAKER) (test rarr=411) Positive Negative CANNABINOID SCREEN URINE (BEAKER) (test hovy=466) Negative Negative AMPH/METHAMPH SCREEN (BEAKER) (test fkwn=2099) Positive Negative PHENCYCLIDINE SCREEN URINE (BEAKER) (test gvxp=524) Negative Negative OXYCODONE SCREEN URINE (BEAKER) (test ihan=2475) Negative Negative DRUG CUTOFF CONC.Cocaine 300 ng/mL Cannabinoid 50 ng/mL Benzodiazepine 200 ng/mLBarbiturate 200 ng/ mLPhencyclidine 25 ng/mLOpiate 300 ng/mLMethadone 300 ng/mLAmphetamine/ 1000 ng/mL MethamphetamineOxycodone 300 ng/mLThis assay provides an unconfirmed qualitative test result for the clinical management of patients in emergency situations. Chain of custody not maintained. Some gknf-foq-mgvtrtk medications, as well as adulterants, may cause inaccurate results. Clinical correlation should be applied. A more comprehensive drug screen or confirmation of a detected drug may be performed upon request.[id number] 17:40:00 Test Item Value Reference Range Comments ETHANOL (BEAKER) (test sbcx=292) < mg/dL <=10 RAD, CHEST, 1 VIEW, NON [id number] 10:10:00Reason for exam:-> dyspenaShould this be performed at the bedside?->YesFINAL REPORT Chest x-ray Clinical History: dyspena Comparison: No comparison Views: One AP lordotic Chest x-ray:The cardiac and mediastinal silhouettes are within normal limits.There is no evidence of a pneumothorax. There is evidence of a small left pleural effusion. There is no evidence of overt cardiac failure. The visible regional skeleton is intact. There is evidence of a left lower lobe focal parenchymal opacity. Impression: Left lower lobe pneumonia is suspected. A follow-up study is recommended to ensure interval resolution. Signed: Kel Martinezeport Verified Date/Time: 2018 10:10:47 Reading Location: [facility] Radiology Reading Room URINALYSIS WITH MICROSCOPIC IF [id number] 05:09:00 Test Item Value Reference Range Comments COLOR (BEAKER) (test cbxc=998) Yellow CLARITY (BEAKER) (test uxfq=244) Clear SPECIFIC GRAVITY UA (BEAKER) (test ctzb=857) 1.016 1.001-1.035 PH UA (BEAKER) (test hxer=043) 5.5 5.0-8.0 PROTEIN UA (BEAKER) (test hjbn=804) 30 mg/dL Negative GLUCOSE UA (BEAKER) (test uawt=749) Negative Negative KETONES UA (BEAKER) (test cvrq=463) Negative Negative BILIRUBIN UA (BEAKER) (test mzfl=881) Negative Negative BLOOD UA (BEAKER) (test lgdr=790) Moderate Negative NITRITE UA (BEAKER) (test aerf=385) Negative Negative LEUKOCYTE ESTERASE UA (BEAKER) (test ghqo=597) Negative Negative UROBILINOGEN UA (BEAKER) (test koxs=627) 0.2 mg/dL 0.2-1.0 SOURCE(BEAKER) (test kizo=3788) URINALYSIS [id number] 05:09:00 Test Item Value Reference Range Comments RBC UA (BEAKER) (test zoiw=999) 4 /HPF WBC UA (BEAKER) (test mxpu=700) 1 /HPF MUCUS (BEAKER) (test rvng=9412) Rare SQUAMOUS EPITHELIAL (BEAKER) (test lrew=677) < /HPF HYALINE CASTS (BEAKER) (test qvzs=079) 6 /LPF HEPATIC FUNCTION [id number] 03:57:00 Test Item Value Reference Range Comments TOTAL PROTEIN (BEAKER) (test msxf=380) 5.0 gm/dL 6.0-8.3 ALBUMIN (BEAKER) (test dwzi=0500) 1.7 g/dL 3.5-5.0 BILIRUBIN TOTAL (BEAKER) (test dgqj=353) 1.6 mg/dL 0.2-1.2 BILIRUBIN DIRECT (BEAKER) (test vkrp=918) 1.0 mg/dL 0.1-0.5 ALKALINE PHOSPHATASE (BEAKER) (test qujy=598) 110 U/L 40-150 AST (SGOT) (BEAKER) (test fwyt=390) 93 U/L 5-34 ALT (SGPT) (BEAKER) (test mzcf=466) 45 U/L 6-55 BASIC METABOLIC [id number] 03:29:00 Test Item Value Reference Range Comments SODIUM (BEAKER) (test 135 meq/L 136-145 wsae=246) POTASSIUM (BEAKER) (test 4.0 meq/L 3.5-5.1 qfwl=771) CHLORIDE (BEAKER) (test 106 meq/L 98-107 vyeq=703) CO2 (BEAKER) (test 24 meq/L 22-29 lakv=027) BLOOD UREA NITROGEN 16 mg/dL 7-21 (BEAKER) (test rqid=461) CREATININE (BEAKER) (test 0.70 mg/dL 0.57-1.25 mpvq=795) GLUCOSE RANDOM (BEAKER) 107 mg/dL 70-105 (test hkwa=685) CALCIUM (BEAKER) (test 7.7 mg/dL 8.4-10.2 olwb=293) EGFR (BEAKER) (test 122 mL/min/1.73 sq m ESTIMATED GFR IS NOT aheg=5983) ACCURATE CREATININE CLEARANCE IN PREDICTING GLOMERULAR FILTRATION RATE. ESTIMATED GFR IS NOT APPLICABLE FOR DIALYSIS PATIENTS. LACTIC ACID, [id number] 03:02:00 Test Item Value Reference Range Comments LACTATE BLOOD VENOUS (2) 1.4 mmol/L 0.5-2.2 Specimen slightly hemolyzed (BEAKER) (test vtre=3332) [id number] 02:56:00 Test Item Value Reference Range Comments PROCALCITONIN (BEAKER) (test iktj=9564) 6.04 ng/mL <0.05 SEPSIS RISK (ng/mL)Low: 0.05-0.50Intermediate: 0.51-2.00High: & gt;=[id number] 02:27:00 Test Item Value Reference Range Comments PARTIAL THROMBOPLASTIN TIME (BEAKER) (test 37.7 seconds 22.5-36.0 wfco=602) PROTHROMBIN [id number] 02:26:00 Test Item Value Reference Range Comments PROTIME (BEAKER) (test jhfu=316) 17.4 seconds 11.7-14.7 INR (BEAKER) (test trvx=911) 1.4 <=5.9 RECOMMENDED COUMADIN/WARFARIN INR THERAPY RANGESSTANDARD DOSE: 2.0 - 3.0 Includes: PROPHYLAXIS forvenous thrombosis, systemic embolization; TREATMENT for venous thrombosis and/or pulmonary embolus.HIGH RISK: Target INR is 2.5-3.5 for patients with mechanical heart valves.CBC W/PLT COUNT & AUTO [id number] 02:07:00 Test Item Value Reference Range Comments WHITE BLOOD CELL COUNT (BEAKER) (test tfjc=376) 6.9 K/ L 3.5-10.5 RED BLOOD CELL COUNT (BEAKER) (test fqvu=938) 2.75 M/ L 4.63-6.08 HEMOGLOBIN (BEAKER) (test kthw=181) 9.2 GM/DL 13.7-17.5 HEMATOCRIT (BEAKER) (test tvoz=448) 27.8 % 40.1-51.0 MEAN CORPUSCULAR VOLUME (BEAKER) (test siur=324) 101.1 fL 79.0-92.2 MEAN CORPUSCULAR HEMOGLOBIN (BEAKER) (test 33.5 pg 25.7-32.2 xsoz=806) MEAN CORPUSCULAR HEMOGLOBIN CONC (BEAKER) (test 33.1 GM/DL 32.3-36.5 vzqy=361) RED CELL DISTRIBUTION WIDTH (BEAKER) (test 15.9 % 11.6-14.4 oibt=389) PLATELET COUNT (BEAKER) (test pjkn=275) 123 K/CU MM 150-450 MEAN PLATELET VOLUME (BEAKER) (test dgxs=968) 8.8 fL 9.4-12.4 NUCLEATED RED BLOOD CELLS (BEAKER) (test 0 /100 WBC 0-0 jneg=534) NEUTROPHILS RELATIVE PERCENT (BEAKER) (test 67 % qmui=270) LYMPHOCYTES RELATIVE PERCENT (BEAKER) (test 13 % bzek=984) MONOCYTES RELATIVE PERCENT (BEAKER) (test 15 % teft=397) EOSINOPHILS RELATIVE PERCENT (BEAKER) (test 4 % lqpf=344) BASOPHILS RELATIVE PERCENT (BEAKER) (test 1 % afix=369) NEUTROPHILS ABSOLUTE COUNT (BEAKER) (test 4.58 K/ L 1.78-5.38 shck=184) LYMPHOCYTES ABSOLUTE COUNT (BEAKER) (test 0.89 K/ L 1.32-3.57 bjqn=080) MONOCYTES ABSOLUTE COUNT (BEAKER) (test 1.04 K/ L 0.30-0.82 uimh=061) EOSINOPHILS ABSOLUTE COUNT (BEAKER) (test 0.28 K/ L 0.04-0.54 mnfp=017) BASOPHILS ABSOLUTE COUNT (BEAKER) (test 0.04 K/ L 0.01-0.08 bzwr=910) IMMATURE GRANULOCYTES-RELATIVE PERCENT (BEAKER) 1 % 0-1 (test kerz=0294)
--- OUTSIDE RECORDS SUMMARY | 2019-03-26 06:12 | XMS REPORT | Clinical Summary ---
:1975 Author Organization [facility] Address [address] [place] [address] Care Team Providers Name Role Phone Unavailable Primary Care Provider Unavailable Allergies Active Allergy Reactions Severity Noted Date Comments Cantaloupe Low 12/21/2018 Makes him feel sick and gets hot. Furosemide Other (See Comments) High 12/24/2018 Severe abdominal cramps Promethazine Low 12/21/2018 Makes him feel sick and gets flushed. Medications Medication Sig Dispensed Refills Start Date End Date Status spironolactone Take 100 mg by 0 Active (ALDACTONE) 100 MG mouth daily . tablet rifAXIMin 550 mg Tab Take 550 mg by 0 Active mouth 2 (two) times daily. calcium carbonate Take 2 tablets 0 Active (TUMS) 500 mg by mouth 3 chewable tablet (three) times daily as needed for Heartburn . multivitamin per Take 1 tablet 0 Active tablet by mouth daily. omega-3 fatty Take 2 g by 0 Active acids-fish oil mouth 2 (two) 340-1,000 mg Cap per times daily. capsule lactulose Take 30 mLs (20 300 mL 0 12/26/2018 Active (CHRONULAC) 20 g total) by gram/30 mL solution mouth 3 (three) times daily. bumetanide (BUMEX) 1 Take 0.5 60 tablet 0 12/26/2018 Active MG tablet tablets (0.5 mg total) by mouth 2 (two) times daily. bumetanide (BUMEX) 1 Take 1 mg by 0 Discontinued MG tablet mouth daily. 9 bumetanide (BUMEX) 1 Take 1 tablet 60 tablet 0 12/26/2018 Discontinued MG tablet (1 mg total) by 9 mouth 2 (two) times daily. simethicone Take 1 tablet 30 tablet 0 12/26/2018 (MYLICON) 80 MG (80 mg total) 9 chewable tablet by mouth every 6 (six) hours as needed for Flatulence for up to 10 days. traMADol (ULTRAM) 50 Take 1 tablet 30 tablet 0 12/26/2018 mg tablet (50 mg total) 9 by mouth every 12 (twelve) hours as needed for up to 10 days. Max Daily Amount: 100 mg levoFLOXacin Take 1 tablet 5 tablet 0 12/26/2018 (LEVAQUIN) 500 MG (500 mg total) 9 tablet by mouth daily for 5 days. Active Problems Problem Noted Date Fever 12/22/2018 Cirrhosis 12/22/2018 Abdominal pain, unspecified abdominal location 12/22/2018 Encounters Date Type Specialty Care Team Description 12/29/2018 Documentation Hepatology Katelyn Slaughter PA-C 12/22/2018 Travel 12/21/2018 - Hospital Encounter General Internal ChangelaRica Abdominal pain, unspecified abdominal location (Primary Dx); 12/26/2018 Medicine MD Monica Cirrhosis of liver with ascites, unspecified hepatic cirrhosis type (HCC); Ignacio, Fever, unspecified fever cause Lauri Mendenhall MD after 03/25/2018 Social History Tobacco Use Types Packs/Day Years Used Date Light Tobacco Smoker Smokeless Tobacco: Never Used Alcohol Use Drinks/Week oz/Week Comments No Alcohol Habits Answer Date Recorded How often do you have a drink containing alcohol? Never 12/21/2018 How many drinks containing alcohol do you have on a typical Not asked day when you are drinking? How often do you have six or more drinks on one occasion? Not asked Sex Assigned at Date Recorded Not on file Job Start Date Occupation Industry Not on file Not on file Not on file Travel History Travel Start Travel End No recent travel history available. Last Filed Vital Signs Vital Sign Reading Time Taken Blood Pressure 130/72 12/26/2018 3:17 PM CDT Pulse 94 12/26/2018 3:17 PM CDT Temperature 36.6 C (97.8 F) 12/26/2018 3:17 PM CDT Respiratory Rate 18 12/26/2018 3:17 PM CDT Oxygen Saturation 97% 12/26/2018 3:17 PM CDT Inhaled Oxygen Concentration - - Weight 109.5 kg (241 lb 6.5 oz) 12/26/2018 4:00 AM CDT Height 182.9 cm (6') 12/21/2018 11:10 PM CDT Body Mass Index 32.74 12/26/2018 4:00 AM CDT Plan of Treatment Not on file Procedures Procedure Name Priority Date/Time Associated Comments Diagnosis MAGNESIUM Routine 12/26/2018 5:06 Results for this AM CDT procedure are in the results section. BASIC METABOLIC PANEL Routine 12/26/2018 5:06 Results for this (7) AM CDT procedure are in the results section. US DOPPLER STAT 12/25/2018 1:05 Results for this PM CDT procedure are in the results section. XR CHEST 1 VIEW Routine 12/25/2018 8:23 Results for this PORTABLE/BEDSIDE AM CDT procedure are in the results section. CBC W/PLT COUNT & AUTO Routine 12/25/2018 4:30 Results for this DIFFERENTIAL AM CDT procedure are in the results section. PHOSPHORUS Routine 12/25/2018 4:30 Results for this AM CDT procedure are in the results section. MAGNESIUM Routine 12/25/2018 4:30 Results for this AM CDT procedure are in the results section. CBC W/PLT COUNT & AUTO Routine 12/25/2018 4:30 Results for this DIFFERENTIAL AM CDT procedure are in the results section. CALCIUM, IONIZED Routine 12/25/2018 4:30 Results for this AM CDT procedure are in the results section. BASIC METABOLIC PANEL Routine 12/25/2018 4:30 Results for this (7) AM CDT procedure are in the results section. ECHOCARDIOGRAM REPORT - 12/24/2018 9:22 SCAN PM CDT VANCOMYCIN LEVEL, Timed 12/24/2018 11:30 Results for this TROUGH AM CDT procedure are in the results section. 2D ECHO W/ DOPPLER Routine 12/24/2018 8:06 Results for this (CW/PW/COLOR) AM CDT procedure are in the results section. CBC W/PLT COUNT & AUTO Routine 12/24/2018 6:40 Results for this DIFFERENTIAL AM CDT procedure are in the results section. CBC W/PLT COUNT & AUTO Routine 12/24/2018 6:40 Results for this DIFFERENTIAL AM CDT procedure are in the results section. PHOSPHORUS Routine 12/24/2018 6:40 Results for this AM CDT procedure are in the results section. MAGNESIUM Routine 12/24/2018 6:40 Results for this AM CDT procedure are in the results section. COMPREHENSIVE METABOLIC Routine 12/24/2018 6:40 Results for this PANEL AM CDT procedure are in the results section. CALCIUM, IONIZED Routine 12/24/2018 6:40 Results for this AM CDT procedure are in the results section. HEPATITIS C GENOTYPE Routine 12/24/2018 6:40 Results for this AM CDT procedure are in the results section. HEPATITIS C PCR, Routine 12/24/2018 6:40 Results for this QUANTITATIVE AM CDT procedure are in the results section. HEMOGLOBIN AND Routine 12/23/2018 12:43 Results for this HEMATOCRIT PM CDT procedure are in the results section. BLOOD CULTURE Routine 12/23/2018 5:55 Results for this AM CDT procedure are in the results section. CBC W/PLT COUNT & AUTO Routine 12/23/2018 5:50 Results for this DIFFERENTIAL AM CDT procedure are in the results section. PHOSPHORUS Routine 12/23/2018 5:50 Results for this AM CDT procedure are in the results section. MAGNESIUM Routine 12/23/2018 5:50 Results for this AM CDT procedure are in the results section. COMPREHENSIVE METABOLIC Routine 12/23/2018 5:50 Results for this PANEL AM CDT procedure are in the results section. CBC W/PLT COUNT & AUTO Routine 12/23/2018 5:50 Results for this DIFFERENTIAL AM CDT procedure are in the results section. CALCIUM, IONIZED Routine 12/23/2018 5:50 Results for this AM CDT procedure are in the results section. B-TYPE NATRIURETIC Routine 12/23/2018 5:50 Results for this FACTOR (BNP) AM CDT procedure are in the results section. ALPHA FETOPROTEIN Routine 12/23/2018 5:50 Results for this (AFP), TUMOR MARKER AM CDT procedure are in the results section. ACTIN (SMOOTH MUSCLE) Routine 12/23/2018 5:50 Results for this ANTIBODY, IGG AM CDT procedure are in the results section. MITOCHONDRIA M2 Routine 12/23/2018 5:50 Results for this ANTIBODY (IGG) AM CDT procedure are in the results section. ANTI-NUCLEAR ANTIBODY Routine 12/23/2018 5:50 Results for this (OTIS) AM CDT procedure are in the results section. ILCOW-4-[id number]\, Routine 12/23/2018 5:50 Results for this SERUM AM CDT procedure are in the results section. CERULOPLASMIN Routine 12/23/2018 5:50 Results for this AM CDT procedure are in the results section. FERRITIN Routine 12/23/2018 5:50 Results for this AM CDT procedure are in the results section. IRON, TIBC, % SAT. Routine 12/23/2018 5:50 Results for this (WITHOUT FERRITIN) AM CDT procedure are in the results section. HEPATITIS C ANTIBODY Routine 12/23/2018 5:50 Results for this AM CDT procedure are in the results section. HEPATITIS B CORE Routine 12/23/2018 5:50 Results for this ANTIBODY, TOTAL AM CDT procedure are in the results section. HEPATITIS B SURFACE Routine 12/23/2018 5:50 Results for this ANTIGEN AM CDT procedure are in the results section. HEPATITIS B SURFACE Routine 12/23/2018 5:50 Results for this ANTIBODY AM CDT procedure are in the results section. HEPATITIS A ANTIBODY, Routine 12/23/2018 5:50 Results for this IGM AM CDT procedure are in the results section. HEPATITIS A ANTIBODY, Routine 12/23/2018 5:50 Results for this IGG AM CDT procedure are in the results section. BLOOD CULTURE Routine 12/23/2018 5:49 Results for this AM CDT procedure are in the results section. CALCIUM, IONIZED Routine 12/22/2018 9:39 Results for this PM CDT procedure are in the results section. PHOSPHORUS Routine 12/22/2018 9:39 Results for this PM CDT procedure are in the results section. MAGNESIUM Routine 12/22/2018 9:39 Results for this PM CDT procedure are in the results section. ELECTROLYTE PANEL Routine 12/22/2018 9:39 Results for this PM CDT procedure are in the results section. CREATININE, RANDOM Routine 12/22/2018 5:35 Results for this URINE PM CDT procedure are in the results section. PROTEIN, RANDOM URINE Routine 12/22/2018 5:35 Results for this PM CDT procedure are in the results section. RAPID DRUG SCREEN, Routine 12/22/2018 5:35 Results for this URINE PM CDT procedure are in the results section. DRUG SCREEN, URINE, Routine 12/22/2018 5:32 TRANSPLANT PM CDT MISCELLANEOUS LAB ORDER Routine 12/22/2018 5:31 PM CDT ETHANOL Routine 12/22/2018 4:06 Results for this PM CDT procedure are in the results section. XR CHEST 1 VIEW Routine 12/22/2018 8:56 Results for this PORTABLE/BEDSIDE AM CDT procedure are in the results section. CBC W/PLT COUNT & AUTO Routine 12/22/2018 1:56 Results for this DIFFERENTIAL AM CDT procedure are in the results section. PROCALCITONIN Routine 12/22/2018 1:56 Results for this AM CDT procedure are in the results section. LACTIC ACID, VENOUS STAT 12/22/2018 1:56 Results for this AM CDT procedure are in the results section. APTT Routine 12/22/2018 1:56 Results for this AM CDT procedure are in the results section. PROTHROMBIN TIME/INR Routine 12/22/2018 1:56 Results for this AM CDT procedure are in the results section. CBC W/PLT COUNT & AUTO Routine 12/22/2018 1:56 Results for this DIFFERENTIAL AM CDT procedure are in the results section. HEPATIC FUNCTION PANEL Routine 12/22/2018 1:56 Results for this AM CDT procedure are in the results section. BASIC METABOLIC PANEL Routine 12/22/2018 1:56 Results for this (7) AM CDT procedure are in the results section. BLOOD CULTURE Routine 12/22/2018 1:55 Results for this AM CDT procedure are in the results section. BLOOD CULTURE Routine 12/22/2018 1:55 Results for this AM CDT procedure are in the results section. URINALYSIS MICROSCOPIC Routine 12/22/2018 1:34 Results for this AM CDT procedure are in the results section. URINALYSIS WITH Routine 12/22/2018 1:34 Results for this MICROSCOPIC IF AM CDT procedure are in INDICATED the results section. after 03/25/2018 Results Magnesium (12/26/2018 5:06 AM CDT)Only the most recent of5 resultswithin the time period is included. Magnesium 1.5 (L) 1.6 - 2.6 mg/dL [facility] Specimen Blood Performing Organization Address City/State/Zipcode Phone Number [facility] [address] [place] [address] CENTER Basic Metabolic Panel (12/26/2018 5:06 AM CDT)Only the most recent of3 resultswithin the time period is included. Sodium 132 (L) 136 - 145 meq/L [facility] Potassium 3.9 3.5 - 5.1 meq/L [facility] Chloride 103 98 - 107 meq/L [facility] CO2 27 22 - 29 meq/L [facility] BUN 10 7 - 21 mg/dL [facility] Creatinine 0.61 0.57 - 1.25 mg/dL [facility] Glucose 95 70 - 105 mg/dL [facility] Calcium 7.3 (L) 8.4 - 10.2 mg/dL [facility] EGFR 143Comment: ESTIMATED GFR IS mL/min/1.73 sq m [facility] NOT ACCURATE CREATININE [facility] CENTER CLEARANCE IN PREDICTING GLOMERULAR FILTRATION RATE. ESTIMATED GFR IS NOT APPLICABLE FOR DIALYSIS PATIENTS. Specimen Blood Performing Organization Address City/State/Zipcode Phone Number [facility] [address] [place] [address] CENTER US doppler (12/25/2018 1:05 PM CDT) Specimen Narrative Performed At FINAL REPORT [facility] Abdominal Doppler Ultrasound Clinical Diagnosis: Cirrhosis hepatocellular carcinoma screening and portal vein evaluation. Comparison: No comparison Technique: Multiple transaxial and longitudinal images were obtained through the abdomen with real time ultrasonography.In addition, color Doppler and spectral waveform analysis evaluation of the abdominal vasculature was performed.FiveMHz transducer was utilized.83 images were submitted for interpretation. Report: Liver: The liver measures 12.1 cm in the right midaxillary line. There are no focal masses.The echogenicity is increased. Spleen: The spleen measures 15.6 cm in the left mid axillary line. Gallbladder: The transverse diameter is two cm.The wall measures five mm.There are shadowing stones visualized.The gallbladder is contracted Biliary tree: There is no evidence of intra or extra hepatic biliary ductal dilatation. The common bile duct was not seen. Portal vein: The portal vein measures nine mm. Pancreas:The pancreatic tail is not well seen secondary to overlying bowel gas. Ascites: Mild Pleural Effusion: Positive right-sided and trace left Right kidney: The right kidney measures 12.3 cm in length without evidence of hydronephrosis. Left kidney: Theleft kidney measures 13.4 cm in length without evidence of hydronephrosis. Midline abdominal structures: IVC: Visualized Hepatic veins: The hepatic venous confluence was visualized. The intrahepatic veins were not well seen. Aorta dimensions: Maximum transverse dimension of aorta measured 2.4 cm proximally Hepatic arteries: The proper hepatic, right hepatic and left hepatic arteries are remarkable for nonspecific increased resistive index in the proper hepatic artery and left hepatic artery. Normal arterial waveforms were documented Portal vein:The peak systolic velocity measured 28.3 cm/sec which is within normal limits. The direction of flow is hepatopedal. The right portal vein is visualized with hepatopedal flow.The left portal vein is visualized with hepatopedal flow. Splenic vein:The splenic vein at the portal confluence is not adequately visualized. Impression: Cirrhosis ascites contracted gallbladder with cholelithiasis pleural effusions right greater than left Inadequate visualization of the nikki hepatis midline abdominal structures splenic vein and the right and left hepatic veins Signed: Rhiannon Martinez MD Report Verified Date/Time:12/25/2018 14:38:51 Reading Location: [place] [id number] Ultrasound Reading Room Procedure Note Interface, External Ris In - 12/25/2018 2:41 PM CDT FINAL REPORT Abdominal Doppler Ultrasound Clinical Diagnosis: Cirrhosis hepatocellular carcinoma screening and portal vein evaluation. Comparison: No comparison Technique: Multiple transaxial and longitudinal images were obtained through the abdomen with real time ultrasonography. In addition, color Doppler and spectral waveform analysis evaluation of the abdominal vasculature was performed. Five MHz transducer was utilized. 83 images were submitted for interpretation. Report: Liver: The liver measures 12.1 cm in the right midaxillary line. There are no focal masses. The echogenicity is increased. Spleen: The spleen measures 15.6 cm in the [...] not well seen secondary to overlying bowel gas. Ascites: Mild Pleural Effusion: Positive right-sided and trace left Right kidney: The right kidney measures 12.3 cm in length without evidence of hydronephrosis. Left kidney: The left kidney measures 13.4 cm in length without evidence of hydronephrosis. Midline abdominal structures: IVC: Visualized Hepatic veins: The hepatic venous confluence was visualized. The intrahepatic veins were not well seen. Aorta dimensions: Maximum transverse dimension of aorta measured 2.4 cm proximally Hepatic arteries: The proper hepatic, right hepatic and left hepatic arteries are remarkable for nonspecific increased resistive index in the proper hepatic artery and left hepatic artery. Normal arterial waveforms were documented Portal vein: The peak systolic velocity measured 28.3 cm/sec which is within normal limits. The direction of flow is hepatopedal. The right portal vein is visualized with hepatopedal flow. The left portal vein is visualized with hepatopedal flow. Splenic vein: The splenic vein at the portal confluence is not adequately visualized. Impression: Cirrhosis ascites contracted gallbladder with cholelithiasis pleural effusions right greater than left Inadequate visualization of the nikki hepatis midline abdominal structures splenic vein and the right and left hepatic veins Signed: Rhiannon Martinez MD Report Verified Date/Time: 12/25/2018 14:38:51 Reading Location: [address] Ultrasound Reading Room Performing Organization Address City/State/Zipcode Phone Number [facility] XR chest 1 view portable / bedside (12/25/2018 8:23 AM CDT)Only the most recent of2 resultswithin the time period is included. Specimen Narrative Performed At FINAL REPORT [facility] Chest one view. Clinical history: follow up pna Comparison: December 22, 2018 Discussion: A frontal chest is provided. Cardiomediastinal contours are unchanged. Left lower lobe opacity seen on the prior exam has essentially resolved. There is no pneumothorax, or pleural effusion. No acute bony abnormality. Signed: Abbie Salas MD Report Verified Date/Time:12/25/2018 08:59:58 Reading Location: [facility] Radiology Reading Room Procedure Note Interface, External Ris In - 12/25/2018 9:02 AM CDT FINAL REPORT Chest one view. Clinical history: follow up pna Comparison: December 22, 2018 Discussion: A frontal chest is provided. Cardiomediastinal contours are unchanged. Left lower lobe opacity seen on the prior exam has essentially resolved. There is no pneumothorax, or pleural effusion. No acute bony abnormality. Signed: Abbie Salas MD Report Verified Date/Time: 12/25/2018 08:59:58 Reading Location: [facility] Radiology Reading Room Performing Organization Address City/State/Zipcode Phone Number [facility] Calcium, Ionized (12/25/2018 4:30 AM CDT)Only the most recent of4 resultswithin the time period is included. Calcium, Ion 1.01 (L) 1.12 - 1.27 mmol/L [facility] pH, Blood 7.45 [facility] Specimen Blood Performing Organization Address City/[facility]/Zipcode Phone Number [place] [phone] [place] [address] CENTER CBC with platelet count + automated diff (12/25/2018 4:30 AM CDT)Only the most recent of4 resultswithin the time period is included. WBC 6.3 3.5 - 10.5 K/L [facility] RBC 2.63 (L) 4.63 - 6.08 M/L [facility] Hemoglobin 8.9 (L) 13.7 - 17.5 GM/DL [facility] Hematocrit 27.0 (L) 40.1 - 51.0 % [facility] MCV 102.7 (H) 79.0 - 92.2 fL [facility] MCH 33.8 (H) 25.7 - 32.2 pg [facility] MCHC 33.0 32.3 - 36.5 GM/DL [facility] RDW 15.4 (H) 11.6 - 14.4 % [facility] Platelets 107 (L) 150 - 450 K/CU MM [facility] MPV 9.3 (L) 9.4 - 12.4 fL [facility] nRBC 0 0 - 0 /100 WBC [facility] % Neutros 61 % [facility] % Lymphs 17 % [facility] % Monos 12 % [facility] % Eos 10 % [facility] % Baso 1 % [facility] # Neutros 3.81 1.78 - 5.38 K/L [facility] # Lymphs 1.07 (L) 1.32 - 3.57 K/L [facility] # Monos 0.72 0.30 - 0.82 K/L [facility] # Eos 0.60 (H) 0.04 - 0.54 K/L [facility] # Baso 0.04 0.01 - 0.08 K/L [facility] Immature 1 0 - 1 % [facility] Granulocytes-[facility] Specimen Blood Performing Organization Address City/State/Zipcode Phone Number [facility] [address] [place] [address] CENTER Phosphorus (12/25/2018 4:30 AM CDT)Only the most recent of4 resultswithin the time period is included. Phosphorus 3.0 2.3 - 4.7 mg/dL [facility] Specimen Blood Performing Organization Address City/State/Zipcode Phone Number [address] [address] CENTER ECHOCARDIOGRAM REPORT - SCAN (12/24/2018 9:22 PM CDT) Narrative Performed At Vancomycin level, trough (12/24/2018 11:30 AM CDT) Vancomycin Tr 16.5 10.0 - 20.0 ug/mL [facility] Specimen Blood Performing Organization Address City/State/Zipcode Phone Number [facility] [address] [place] [address] [phone] CENTER 2D Echo W/Doppler(CW/PW/Color) (12/24/2018 8:06 AM CDT) Ejection Fraction [facility] Specimen Narrative Performed At Transthoracic Echocardiography Report (TTE) [facility] Dem[facility] Patient NameRomie FRANKELte of Study12/24/2018 TRICE JOHNSTON Gender Male Visit [id number] Race Unknown [id number] Number Date of 1975 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 Age 43 year(s) SonographYsabel Jett [facility] Cook Pie Richy Wong Interpreting Physician JimMD Procedure Type of Study TTE procedure:2DECHO W DOPPLER(CW/PW/COLOR) (Pending Discharge) Indications:Known or suspected heart failure. Clinical History Cirrhosis, Peripheral edema, Fever Height: 72 inches Weight: 117.93 kg (260 lbs) BSA: 2.38 m^2 BMI: 35.26 kg/m^2 HR: 77 bpm BP: 142/86 mmHg Summary 1. All of the LV segments contract normally Estimated LVEF by qualitative assessment is normal (>60%) . 2. The right ventricular chamber size and systolic function are within normal limits. 3. 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 Previous Study No prior exam available for comparison. Signature Findings Technical Quality: Technically difficult exam. Left Ventricle The left ventricle is chamber size (by PSLAX di mension) is normal (male - LVIDd 4.2-5.8cm) . Mi ld concentric LV hypertrophy. LV linear me asurements done on low parasternal view. All of th e LV segments contract normally . Global LV sy stolic function normal . Estimated LVEF by qu alitative assessment is normal (>60%) . Increased (c ardiac index 3.5-4.0 L/min/m2) cardiac output st ate at rest is noted. Degree of diastolic dy sfunction (LAP assessment) is inconclusive due to mi tral annular calcification . Left AtriumLA size is moderately enlarged (42-48 ml/m2) . Right VentricleThe right ventricular chamber size and systolic fu nction are within normal limits. Right Atrium RA cavity size is normal . Aortic Valve Mild AoV cusp calcification. No evidence of aortic stenosis. Mitral Valve Mild MV leaflet thickening. Mi ld to moderate mitral annular calcification. El evated gradients across the MV secondary to MAC. Tr izabella mitral regurgitation. Tricuspid ValveUnable to estimate peak systolic PA pressure; in adequate TR velocity signal. Pulmonic Valve PV is not well visualized. AortaAortic root size (SInus of Valsalva diameter) is no rmal . PericardiumNo significant pericardial effusion is visualized. As cites is visualized. IVC/SVC/PA/PV/PleuralThe estimated RA pressure by IVC dynamics 5-10mmHg . Chambers/Structures Left Atrium LA Volume: 108.97 mlLA Area: 27.58 cm^2 LA Vol. Index: 46 ml/m^2 Left Ventricle LVIDd: 5.52 cm LV Septum Diastolic: 1.16 cm LV PW Diastolic: 1.22 cm LVOT Diameter: 2.03 cm Right Ventricle TAPSE: 1.99 cm Aorta Ao Root S of Edilia.: 3.01 cm Doppler/Quantitative Measurements Mitral Valve MV Peak E-Wave: 1.11 m/sMV Peak A-Wave: 0.87 m/s E/A Ratio: 1.27 Mean Velocity: 0.93 m/s Peak Gradient: 4.9 mmHg Mean Gradient: 3.71 mmHgDeceleration Time: 278.8 msec Area (continuity): 3.04 cm^2 MV VTI: 35.01 cm MV Alen. Peak: 1.38 m/s Tissue Doppler E' Lateral Velocity: 0.12 m/s E/E': 8.92 Aortic Valve Peak Velocity: 2.03 m/sMean Velocity: 1.49 m/s Peak Gradient: 16.4 mmHg Mean Gradient: 9.64 mmHg AV Area (continuity): 2.6 cm^2 AV VTI: 40.97 cm AV DVI: 0.8 LVOT Peak Velocity: 1.47 m/s Peak Gradient: 8.64 mmHg Mean Velocity: 0.97 m/s Mean Gradient: 4.41 mmHg LVOT Diameter: 2.03 cmLVOT VTI: 32.95 cm LVOT Area: 3.24 cm^2LVOT SV:106.59 ml LVOT CO: 8.21 l/min LVOT CI: 3.45 l/min/m^2 Procedure Note Interface, External Ris In - 12/24/2018 11:44 AM CDT Transthoracic Echocardiography Report (TTE) Demographics Patient Name POLLY FRANKEL Date of Study 12/24/2018 TRICE JOHNSTON Gender Male Visit Number [id number] Race Unknown Room Number 755 Number Date of 1975 Referring Katelyn 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 Age 43 year(s) 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 Clinical History Cirrhosis, Peripheral edema, Fever Height: 72 inches Weight: 117.93 kg (260 lbs) BSA: 2.38 m^2 BMI: 35.26 kg/m^2 HR: 77 bpm BP: 142/86 mmHg Summary 1. All of the LV segments contract normally Estimated LVEF by qualitative assessment is normal (>60%) . 2. The right ventricular chamber size and systolic function are within normal limits. 3. 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 Previous Study No prior exam available for comparison. Signature Findings Technical Quality: Technically difficult exam. Left Ventricle The left ventricle is chamber size (by PSLAX dimension) is normal (male - LVIDd 4.2-5.8cm) . Mild concentric LV hypertrophy. LV linear measurements done on low parasternal view. All of the LV segments contract normally . Global LV systolic function normal . Estimated LVEF by qualitative assessment is normal (>60%) . Increased (cardiac index 3.5-4.0 L/min/m2) cardiac output state at rest is noted. Degree of diastolic dysfunction (LAP assessment) is inconclusive due to mitral annular calcification . Left Atrium LA size is moderately enlarged (42-48 ml/m2) . Right Ventricle The right ventricular chamber size and systolic function are within normal limits. Right Atrium RA cavity size is normal . Aortic Valve Mild AoV cusp calcification. No evidence of aortic stenosis. Mitral Valve Mild MV leaflet thickening. Mild to moderate mitral annular calcification. 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 Trace mitral regurgitation. Tricuspid Valve Unable to estimate peak systolic PA pressure; inadequate TR velocity signal. Pulmonic Valve PV is not well visualized. Aorta Aortic root size (SInus of Valsalva diameter) is normal . Pericardium No significant pericardial effusion is visualized. Ascites is visualized. IVC/SVC/PA/PV/Pleural The estimated RA pressure by IVC dynamics 5-10mmHg . Chambers/Structures Left Atrium LA Volume: 108.97 ml LA Area: 27.58 cm^2 LA Vol. Index: 46 ml/m^2 Left Ventricle LVIDd: 5.52 cm LV Septum Diastolic: 1.16 cm LV PW Diastolic: 1.22 cm LVOT Diameter: 2.03 cm Right Ventricle TAPSE: 1.99 cm Aorta Ao Root S of Edilia.: 3.01 cm Doppler/Quantitative Measurements Mitral Valve MV Peak E-Wave: 1.11 m/s MV Peak A-Wave: 0.87 m/s E/A Ratio: 1.27 Mean Velocity: 0.93 m/s Peak Gradient: 4.9 mmHg Mean Gradient: 3.71 mmHg Deceleration Time: 278.8 msec Area (continuity): 3.04 cm^2 MV VTI: 35.01 cm MV Alen. Peak: 1.38 m/s Tissue Doppler E' Lateral Velocity: 0.12 m/s E/E': 8.92 Aortic Valve Peak Velocity: 2.03 m/s Mean Velocity: 1.49 m/s Peak Gradient: 16.4 mmHg Mean Gradient: 9.64 mmHg AV Area (continuity): 2.6 cm^2 AV VTI: 40.97 cm AV DVI: 0.8 LVOT Peak Velocity: 1.47 m/s Peak Gradient: 8.64 mmHg Mean Velocity: 0.97 m/s Mean Gradient: 4.41 mmHg LVOT Diameter: 2.03 cm LVOT VTI: 32.95 cm LVOT Area: 3.24 cm^2 LVOT SV:106.59 ml LVOT CO: 8.21 l/min LVOT CI: 3.45 l/min/m^2 Performing Organization Address City/State/Zipcode Phone Number [facility] Hepatitis C genotype (12/24/2018 6:40 AM CDT) HCV Genotype, LiPA 1 [facility] Comment: INCORPORATED The possibility of genotype 6 cannot be excluded because the core region did not amplify or was inconclusive. The method used in this test is RT-PCR and reverse hybridization (Line Probe) of the 5' UTR and core region of the HCV genome. The analytical performance characteristics of this assay have been determined by [facility]. The modifications have not been cleared or approved by the FDA. This assay has been validated pursuant to the CLIA regulations and is used for clinical purposes. For additional information, please refer to http://education.Doximity.nextsocial /faq/HCVGenotyping (This link id being provided for informational/ educational purposes only.) Specimen Blood Narrative Performed At Performing Lab [facility] *QDID [facility] [address] [place] [address] Deidre Anderson MD Performing Organization Address City/State/Zipcode Phone Number [facility], [place] [address] INCORPORATED [address] [facility][1] Hepatitis C PCR, Quantitative (12/24/2018 6:40 AM CDT) HCV PCR, Quantitative 51,300 (H) <15 IU/mL [facility] Specimen Blood Narrative Performed At This test uses a Real-Time Polymerase Chain [facility] Reaction (RT-PCR) methodology and was performed using BANDAR Ampliprep/BANDAR TaqMan HCV test kit version 2.0 ([employer]). Reportable range for this assay is 15 - 100,000,000 IU per mL (1.18 - 8.00 Log IU/mL). Performing Organization Address City/State/Zipcode Phone Number [place] [phone] [place] [address] CENTER Comprehensive metabolic panel (12/24/2018 6:40 AM CDT)Only the most recent of2 resultswithin the time period is included. Protein, Total 4.6 (L) 6.0 - 8.3 gm/dL [facility] Albumin 2.1 (L) 3.5 - 5.0 g/dL [facility] Alkaline Phosphatase 83 40 - 150 U/L [facility] Total Bilirubin 1.6 (H) 0.2 - 1.2 mg/dL [facility] Sodium 136 136 - 145 meq/L [facility] Potassium 4.1 3.5 - 5.1 meq/L [facility] Chloride 107 98 - 107 meq/L [facility] CO2 26 22 - 29 meq/L [facility] BUN 11 7 - 21 mg/dL [facility] Creatinine 0.60 0.57 - 1.25 mg/dL [facility] Glucose 90 70 - 105 mg/dL [facility] Calcium 7.6 (L) 8.4 - 10.2 mg/dL [facility] AST 75 (H) 5 - 34 U/L [facility] ALT 30 6 - 55 U/L [facility] EGFR 146Comment: ESTIMATED mL/min/1.[address] [facility] GFR IS NOT ACCURATE [facility] CREATININE CLEARANCE IN PREDICTING GLOMERULAR FILTRATION RATE. ESTIMATED GFR IS NOT APPLICABLE FOR DIALYSIS PATIENTS. Specimen Blood Performing Organization Address City/[facility]/Zipcode Phone Number [address] [address] [place] Hemoglobin and hematocrit (12/23/2018 12:43 PM CDT) Hemoglobin 8.6 (L) 13.7 - 17.5 GM/DL [facility] Hematocrit 25.3 (L) 40.1 - 51.0 % [facility] Specimen Blood Performing Organization Address [facility] Phone Number [address] [address] [phone] [place] Blood Culture - Routine (Right Venipuncture) (12/23/2018 5:55 AM CDT)Only the most recent of4 resultswithin the time period is included. Result No growth in 5 days [facility] Specimen Blood Performing Organization Address City/[facility] Phone Number [address] [address] [place] Hepatitis A antibody, IgG (12/23/2018 5:50 AM CDT) Hep A IgG Nonreactive Nonreactive [facility] Specimen Blood Performing Organization Address [facility]/Zipcode Phone Number [address] [address] [place] Mitochondria M2 Antibody (IgG) (12/23/2018 5:50 AM CDT) Mitochondria M2 Ab <20.0 See Note: U [facility] Comment: Reference Range: NEGATIVE:< OR=20.0 EQUIVOCAL: 20.1-24.9 POSITIVE:> OR=25.0 Specimen Blood Narrative Performed At Performing Lab [facility] [employer] [address] [address] Jose Alfredo Fernandez MD, PhD, CARMEN Performing Organization Address City/[facility] Phone Number [place] [id number] [place] [address] Iron, TIBC, % sat. (without ferritin) (12/23/2018 5:50 AM CDT) Iron 51.0 40.0 - 160.0 ug/dL [facility] TIBC 134 (L) 250 - 450 ug/dL [facility] Iron % Saturation 38 20 - 55 % [facility] Specimen Blood Performing Organization Address [facility] Cent[facility]ode Phone Number [facility] [address] [place], [place] [phone] CENTER Hepatitis C antibody (12/23/2018 5:50 AM CDT) Hepatitis C Ab Reactive (A) Nonreactive [facility] Specimen Blood Performing Organization Address [facility] Phone Number [facility] [address] [place] [address] [phone] CENTER Actin (Smooth Muscle) Antibody, IgG (12/23/2018 5:50 AM CDT) Anti-Smooth Muscle Ab <20 See Note: U [facility] Comment: INCORPORATED Reference Range: <20 NEGATIVE > OR=20 POSITIVE Antibodies recognizing actin are the main component of smooth muscle antibodies associated with autoimmune liver disease. Actin antibodies are found in approximately 75% of patients with autoimmune hepatitis (AIH) type 1, approximately 65% of patients with autoimmune cholangitis, approximately 30% of patients with primary biliary cirrhosis, and approximately 2% of healthy people. High values are closely correlated with AIH type 1. Specimen Blood Narrative Performed At Performing Lab [facility] [id number] [place] [address] Jose Alfredo Fernandez MD, PhD, CARMEN Performing Organization Address [facility] Cent[facility]ode Phone Number [place] [id number] [place] [address] [id number] (12/23/2018 5:50 AM CDT) A-1 Antitrypsin 151.30 90.00 - 200.00 mg/dL [facility] Specimen Blood Performing Organization Address [facility] Centercode Phone Number [address] [address] CENTER Hepatitis A antibody, IgM (12/23/2018 5:50 AM CDT) Hep A IgM Nonreactive Nonreactive [facility] Specimen Blood Performing Organization Address [facility] Phone Number [address] [address] CENTER Ceruloplasmin (12/23/2018 5:50 AM CDT) Ceruloplasmin 28 18 - 36 mg/dL [facility] Comment: Adults:Males: 18-36 mg/dL Females: 18-53 mg/dL Pediatrics:Males (mg/dL)Females (mg/dL) 0-30 Days 8-25 3-28 31 Days-11 Month -43 1-3 [id number] 4-6 [id number] 7-9 [id number] 10-12 [id number] 13-15 [id number] 16-18 [id number] The pediatric ranges are derived from the following criteria: Kishore REBOLLEDO, Goldie DONIS, Desi J et al Pediatric reference ranges for Afld-6-Sfaqawdffiwaq and ceruloplasmin. Clin. Chem 1997; 43:S1999 Pediatric Reference Ranges, 2nd., SF Kishoreet al. editors. [employer], [place], [place] 1997. Specimen Blood Narrative Performed At Performing Lab [facility] *SPL [facility], [id number] [place] [phone] Daly Oviedo MD, PhD Performing Organization Address City/State/Zipcode Phone Number [facility], [place] [address] INCORPORATED [address] [facility][1] Alpha fetoprotein (AFP), tumor marker (12/23/2018 5:50 AM CDT) Alpha-Fetoprotein <2.0 <10.0 ng/mL [facility] Specimen Blood Performing Organization Address [facility] Centercode Phone Number [address] [address] [place] Hepatitis B core antibody, total (12/23/2018 5:50 AM CDT) Hep B Core Total Ab Nonreactive Nonreactive [facility] Specimen Blood Performing Organization Address [facility] Centercode Phone Number [address] [address] CENTER Hepatitis B surface antibody (12/23/2018 5:50 AM CDT) Hep B S Ab <8.0 <8.0 mIU/mL [facility] Specimen Blood Performing Organization Address [facility] Phone Number [address] [address] [phone] [place] Hepatitis B surface antigen (12/23/2018 5:50 AM CDT) hepatitis B Surface Ag Nonreactive Nonreactive [facility] Specimen Blood Performing Organization Address [facility] Cent[facility]ode Phone Number [address] [address] C[place] Anti-Nuclear Antibody (OTIS) (12/23/2018 5:50 AM CDT) OTIS Negative Negative [facility] Specimen Blood Narrative Performed At Test performed by IFA method. [facility] Test performed by IFA method. Performing Organization Address [facility] Centercode Phone Number [address] [address] C[place] B-type Natriuretic Factor (BNP) (12/23/2018 5:50 AM CDT) BNP 141 (H) 0 - 100 pg/mL [facility] Specimen Blood Performing Organization Address [facility] Cent[facility]ode Phone Number [address] [address] [place] Ferritin (12/23/2018 5:50 AM CDT) Ferritin 177 5 - 275 ng/mL [facility] Specimen Blood Performing Organization Address [facility] Phone Number [address] [address] CENTER Electrolytes (12/22/2018 9:39 PM CDT) Sodium 134 (L) 136 - 145 meq/L [facility] Potassium 4.1 3.5 - 5.1 meq/L [facility] Chloride 103 98 - 107 meq/L [facility] CO2 25 22 - 29 meq/L [facility] Specimen Blood Performing Organization Address [facility] Phone Number [address] [address] [place] Rapid drug screen, urine (12/22/2018 5:35 PM CDT) Barbiturate Screen Negative Negative [facility] Benzodiazepine Screen Negative Negative [facility] Cocaine (Metab.) Screen Negative Negative [facility] Methadone Screen Negative Negative [facility] Opiate Screen Positive (A) Negative [facility] Cannabinoid Screen Negative Negative [facility] Amph/Methamph Screen Positive (A) Negative [facility] Phencyclidine Screen Negative Negative [facility] Oxycodone Screen Negative Negative [facility] Specimen Urine Narrative Performed At DRUGCUTOFF [facility] CONC. Cocaine 300 ng/mL Lmeccskfdwd59 ng/mL Llzshpwkrjmvrm423 ng/mL Barbiturate 200 ng/mL Bhunsmyndhjsp60 ng/mL Msmngo305 ng/mL Methadone 300 ng/mL Amphetamine/ 1000 ng/mL Methamphetamine Oxycodone 300 ng/mL This assay provides an unconfirmed qualitative test result for the clinical management of patients in emergency situations. Chain of custody not maintained. Some lofv-ihv-mzquhsi medications, as well as adulterants, may cause inaccurate results. Clinical correlation should be applied. A more comprehensive drug screen or confirmation of a detected drug may be performed upon request. Performing Organization Address City/[facility] Centercode Phone Number [address] [address] [place] Protein, random urine (12/22/2018 5:35 PM CDT) Protein, Urine 14 0 - 14 mg/dL [facility] Specimen Urine Performing Organization Address [facility] Phone Number [address] [address] [place] Creatinine, random urine (12/22/2018 5:35 PM CDT) Creatinine, Ur 72.8 mg/dL [facility] Specimen Urine Narrative Performed At Reference Range: No Normals [facility] Performing Organization Address [facility]/Zipcode Phone Number [address] [address] [phone] CENTER Drug screen, urine, transplant (12/22/2018 5:32 PM CDT) Specimen Urine Narrative Performed At Performing Organization Address City/[facility]/Zipcode Phone Number [id number] [address] ethyl glucuronide (12/22/2018 5:31 PM CDT) Scan Result [facility] Specimen Urine Narrative Performed At Performing Organization Address City/[facility] Phone Number [facility] [address] [place], [place] Ethanol (12/22/2018 4:06 PM CDT) Ethanol Lvl <10 <=10 mg/dL [facility] Specimen Blood Performing Organization Address [facility] Phone Number [address] [address] CENTER Procalcitonin (12/22/2018 1:56 AM CDT) Procalcitonin 6.04 (H) <0.05 ng/mL [facility] Specimen Blood Narrative Performed At SEPSIS RISK (ng/mL) [facility] Low:0.05-0.50 Intermediate: 0.51-2.00 High: >=2.01 Performing Organization Address [facility] Phone Number [address] [address] [phone] [place] Lactic acid, venous (12/22/2018 1:56 AM CDT) Lactate, Venous 1.4Comment: Specimen 0.5 - 2.2 mmol/L [facility] slightly hemolyzed [facility] Specimen Blood Performing Organization Address [facility] [place] Phone Number [address] [address] CENTER aPTT (12/22/2018 1:56 AM CDT) PTT 37.7 (H) 22.5 - 36.0 seconds [facility] Specimen Blood Performing Organization Address [facility] Cent[facility]ode Phone Number [address] [address] CENTER Prothrombin time/INR (12/22/2018 1:56 AM CDT) Protime 17.4 (H) 11.7 - 14.7 seconds [facility] INR 1.4 <=5.9 [facility] Specimen Blood Narrative Performed At RECOMMENDED COUMADIN/WARFARIN INR THERAPY [facility] RANGES STANDARD DOSE: 2.0 - 3.0 Includes: PROPHYLAXIS for venous thrombosis, systemic embolization; TREATMENT for venous thrombosis and/or pulmonary embolus. HIGH RISK: Target INR is 2.5-3.5 for patients with mechanical heart valves. Performing Organization Address [facility] Phone Number [address] [address] [place] Hepatic function panel (12/22/2018 1:56 AM CDT) Protein, Total 5.0 (L) 6.0 - 8.3 gm/dL [facility] Albumin 1.7 (L) 3.5 - 5.0 g/dL [facility] Total Bilirubin 1.6 (H) 0.2 - 1.2 mg/dL [facility] Bilirubin, Direct 1.0 (H) 0.1 - 0.5 mg/dL [facility] Alkaline Phosphatase 110 40 - 150 U/L [facility] AST 93 (H) 5 - 34 U/L [facility] ALT 45 6 - 55 U/L [facility] Specimen Blood Performing Organization Address City/[facility] Cent[facility]ode Phone Number [address] [address] [phone] [place] Urinalysis Microscopic Only (12/22/2018 1:34 AM CDT) RBC, UA 4 /HPF [facility] WBC, UA 1 /HPF [facility] Mucus Rare [facility] Squam Epithel, UA <1 /HPF [facility] Hyaline Casts, UA 6 /LPF [facility] Specimen Urine Performing Organization Address City/State/Zipcode Phone Number [facility] [address] [place] [address] [place] Urinalysis with Microscopic If Indicated (12/22/2018 1:34 AM CDT) Color, UA Yellow [facility] Clarity, UA Clear [facility] Specific [place], UA 1.016 1.001 - 1.035 [facility] pH, UA 5.5 5.0 - 8.0 [facility] Protein, UA 30 mg/dL (A) Negative [facility] Glucose, UA Negative Negative [facility] Ketones, UA Negative Negative [facility] Bilirubin, UA Negative Negative [facility] Blood, UA Moderate (A) Negative [facility] Nitrite, UA Negative Negative [facility] Leukocytes, UA Negative Negative [facility] Urobilinogen, UA 0.2 0.2 - 1.0 mg/dL [facility] Specimen Source [facility] Specimen Urine Performing Organization Address City/State/Zipcode Phone Number [facility] [address] [place] [address] [place] after 03/25/2018 Insurance Payer Benefit Plan / Group Subscriber ID Type Phone Address MEDICARE MEDICARE A B xxxxxxxxxxx Medicare
[2019-03-26] MEDS ORDERED: FENTANYL CITR 100 MCG/2 ML ONE (07:02)
[2019-03-26 07:15] LABS: Albumin 1.6 g/dL (3.4-5.0); Bilirubin Direct 1.2 mg/dL (0-0.2); Bilirubin Total 1.9 mg/dL (0.2-1.0); Potassium 4.2 mmol/L (3.5-5.1); Protein, Total 5.3 g/dL (6.4-8.2)
[2019-03-26] MEDS ORDERED: ONDANSETRON 4 MG/2 ML VIAL ONE (07:47)
[2019-03-26] MEDS ORDERED: MORPHINE 4 MG/ML SYR ONE ×2 (07:47→11:37)
[2019-03-26 07:59] LABS: Protime INR 1.99
[2019-03-26 08:05] LABS: Absolute Lymphocytes (CBC) 0.3 K/uL (0.7-4.9); Basophils % 0.3 % (0-1.3); Hematocrit 26.3 % (39.6-49.0); Lymphocytes % 5.5 % (15.3-44.8); MPV 8.7 fL (7.6-11.3)
--- NOTE | 2019-03-26 08:22 | RAD REPORT ---
EXAM DESCRIPTION: RAD - Chest Single View - 03/26/2019 7:53 am CLINICAL HISTORY: edema Chest pain. COMPARISON: FLUOROSCOPY-<1 HOUR dated 03/08/2009Chest Single View dated 03/03/2019; Chest Single View dated 12/21/2018 FINDINGS: Portable technique limits examination quality. The lungs are grossly clear. The heart is normal in size. No displaced fractures. IMPRESSION: No acute intrathoracic process suspected.
--- NOTE | 2019-03-26 08:51 | RAD REPORT ---
EXAM DESCRIPTION: US - Extremity Venous Uni Ltd - 03/26/2019 8:35 am CLINICAL HISTORY: Pain;Swelling Leg swelling and edema. COMPARISON: No comparisons FINDINGS: Right lower extremity venous system was interrogated with Doppler technique. Normal flow a nd augmentation was noted. Compressibility was limited due to patient pain. There is no DVT present. IMPRESSION: No evidence of right lower extremity deep venous thrombosis.
[2019-03-26 08:58] LABS: Anisocytosis 1+; Blood Morphology Comment NOTED (NOT SEEN); Ovalocytes 1+; Platelet Estimate DECR
--- NOTE | 2019-03-26 10:02 | ER ---
Nurse's Notes [facility] Name: Poli Frankel Jr Age: 44 yrs Sex: Male : 1975 Arrival Date: 03/26/2019 Time: 06:09 Bed 5 Private MD: Diagnosis: Anasarca;Cellulitis of right lower limb;Acute kidney injury Presentation: 03/26 06:10 Presenting complaint: EMS states: EMS called to [facility] nursing ea staff reports pt started complaining of severe right leg pain . Pt reported to EMS right leg started hurting and is hard to move. Reports pain 10/10. Transition of care: patient was not received from another setting of care. Onset of symptoms was March 26, 2019. Risk Assessment: Do you want to hurt yourself or someone else? Patient reports no desire to harm self or others. Initial Sepsis Screen: Does the patient meet any 2 criteria? No. Patient's initial sepsis screen is negative. Does the patient have a suspected source of infection? No. Patient's initial sepsis screen is negative. Care prior to arrival: BP: 130/82, HR 118, O2 at 98%. 06:10 Method Of Arrival: EMS: [facility] ea 06:10 Acuity: EMMA 3 ea Triage Assessment: 06:14 General: Appears uncomfortable, Behavior is appropriate for age. Pain: Complains of ea pain in right leg. Historical: - Allergies: 06:18 cantalope; ea - Home Meds: 06:18 spironolactone 50 mg Oral tab 2 tabs 3 times per day [Active]; Xifaxan 550 mg oral tab ea 1 tab 2 times per day [Active]; - PMHx: 06:18 Cirrhosis; ea - Immunization history:: Adult Immunizations up to date. - Social history:: Smoking status: Patient/guardian denies using tobacco. - Ebola Screening: : No symptoms or risks identified at this time. Screenin:13 Abuse screen: Denies threats or abuse. Nutritional screening: No deficits noted. ea Tuberculosis screening: No symptoms or risk factors identified. Fall Risk Gait- Impaired (20 pts.). Assessment: 06:14 General: Appears uncomfortable, Behavior is appropriate for age. Pain: Complains of ea pain in right leg Pain currently is 10 out of 10 on a pain scale. Neuro: Level of Consciousness is awake, alert, obeys commands, Oriented to person, place, time, situation. Cardiovascular: Patient's skin is warm and dry. Respiratory: Airway is patent Respiratory effort is even, unlabored, Respiratory pattern is regular, symmetrical. GI: Abdomen is distended, noted to have ascites. Derm: Skin is fragile, Skin is pale, Skin temperature is warm Charlie lower extremity pitting edema noted. Musculoskeletal: Reports pain in right leg Pt reports he is unable to move right leg due to the pain. 06:45 Reassessment: Patient appears in no apparent distress at this time. complaint of right rr5 leg severe pain pain score 10/10. ED provider aware with order made and carried out. 07:20 Reassessment:. General: Appears uncomfortable, Behavior is calm, cooperative. Pain: aa5 Complains of pain in right leg Pain does not radiate. Pain currently is 10 out of 10 on a pain scale. Quality of pain is described as sharp, shooting, Pain began "1 month ago" Is continuous. Neuro: Level of Consciousness is awake, alert, obeys commands, Oriented to person, place, time, situation. Cardiovascular: Heart tones S1 S2 present Edema 3+ pitting edema noted to left leg and 4+ pitting edema noted to right leg. Pt states "the right leg started getting worse about a month ago" Rhythm is regular. Respiratory: Airway is patent Respiratory effort is even, unlabored, Respiratory pattern is regular, symmetrical, Breath sounds are clear bilaterally. GI: Abdomen is distended, noted to have ascites, Bowel sounds present X 4 quads. : swelling noted to scrotum. EENT: No signs and/or symptoms were reported regarding the EENT system. Derm: Skin is dry, Skin is dusky, pale, Skin temperature is warm Redness noted to right ring. Musculoskeletal: Pt states "I can't lift my legs up because of the swelling and the pain". 07:20 Reassessment: Pt notified of need for urine specimen, pt states "I can't pee right now, aa5 I think I need a cup of water". Pt reports pain has not improved after Fentanyl administration, SWEATBAND MAKER was notified. . 07:44 Reassessment: CBC recollected and sent to lab. PT-INR collected and sent to lab. . aa5 07:44 Reassessment: Right leg was repositioned using pillow per pt's request for comfort. Pt aa5 given cup of water per PA. . 08:00 Reassessment: Pt sitting up in bed, pt states "feeling a little better", rates pain aa5 9/10 on a pain scale. . 09:00 Reassessment: Pt resting in bed with eyes closed, respirations even and unlabored. . aa5 10:10 Reassessment: Lab at bedside collecting blood cultures . aa5 10:10 Reassessment: Pt reminded of need for urine collection, pt states "I will try to go aa5 now" . 10:40 Reassessment: Jimena Berman tech at bedside attempting 2nd set of blood cultures. . aa5 10:40 Reassessment: Awaiting room assignment, pt notified of wait time. . aa5 11:00 Reassessment: Pt requesting pain medication at this time. Pt rates pain 10/10 on a pain aa5 scale. SWEATBAND MAKER was notified. . Neuro: Level of Consciousness is awake, alert, obeys commands, Oriented to person, place, time, situation. Respiratory: Airway is patent Respiratory effort is even, unlabored, Respiratory pattern is regular, symmetrical. Derm: Skin is dry, Skin is dusky, pale, Skin temperature is warm. 11:00 Reassessment: Pt states "I am still trying to pee". Inability to obtain urine specimen aa5 notified to PA, PA states to attempt straight cath, pt notified and pt refused straight cath, pt states "I will not let you put that thing in because last time I had one they did it wrong" . 11:45 General: Appears comfortable. Neuro: Level of Consciousness is awake, alert, obeys aa5 commands, Oriented to person, place, time, situation. Respiratory: Airway is patent Respiratory effort is even, unlabored, Respiratory pattern is regular, symmetrical. Derm: Skin is dry, Skin is dusky, pale, Skin temperature is warm. 11:45 Pain: Pain currently is 9 out of 10 on a pain scale. aa5 12:00 Reassessment: Lactate and procalcitonin collected by chemistry laboratory technician. aa5 12:06 Reassessment: US at bedside . aa5 13:00 Reassessment: Pt resting in bed with eyes closed, respirations even and unlabored. . aa5 Pain: Pain currently is 9 out of 10 on a pain scale. 14:00 Neuro: Level of Consciousness is awake, alert, obeys commands, Oriented to person, aa5 place, time, situation. Respiratory: Airway is patent Respiratory effort is even, unlabored, Respiratory pattern is regular, symmetrical. Derm: Skin is dry, Skin is dusky, pale, Skin temperature is warm. Vital Signs: 06:13 BP 127 / 67; Pulse 118; Resp 19; Temp 98.4; Pulse Ox 100% on R/A; ea 06:45 BP 115 / 74; Pulse 118; Resp 20; Pulse Ox 99% ; Pain 10/10; rr5 07:20 BP 124 / 78; Pulse 116; Resp 16 S; Temp 98.0(O); Pulse Ox 99% on R/A; Pain 10/10; aa5 08:00 BP 118 / 77; Pulse 120; Resp 18 S; Pulse Ox 99% on R/A; Pain 9/10; aa5 09:00 BP 103 / 60; Pulse 125; Resp 18 S; Pulse Ox 98% on R/A; aa5 10:00 BP 132 / 68; Pulse 120; Resp 16 S; Pulse Ox 98% on R/A; aa5 12:00 BP 107 / 80; Pulse 118; Resp 18 S; Temp 98.0(O); Pulse Ox 99% on R/A; Pain 9/10; aa5 14:00 BP 109 / 69; Pulse 118; Resp 16 S; Pulse Ox 99% on R/A; Pain 9/10; aa5 ED Course: 06:09 Patient arrived in ED. ea 06:12 Triage completed. ea 06:12 Patient has correct armband on for positive identification. Bed in low position. Call ea light in reach. Side rails up X2. Pulse ox on. NIBP on. 06:13 Daljit Mujica NP is PHCP. pm1 06:13 Lebron Hull MD is Attending Physician. pm1 06:14 Arm band placed on right wrist. Patient placed in an exam room, on a stretcher, on ea pulse oximetry. 06:20 Inserted saline lock: 20 gauge in right forearm, using aseptic technique. Blood rr5 collected. 06:42 Rojas Tejada RN is Primary Nurse. rr5 07:05 Report received from DIANN Jon. aa5 07:53 Chest Single View XRAY In Process Unspecified. EDMS 08:34 Extremity Venous Uni Ltd US In Process Unspecified. EDMS 09:37 EKG done, by obstetrics technician. reviewed by Daljit Mujica NP. dt2 10:00 Amber Greene MD is Hospitalizing Provider. pm1 10:47 Pilar Gracia MD is Hospitalizing Provider. pm1 12:05 Radiology exam delayed due to pt want to go to bathroom first, us going to bedside for sj scan, and lab is in the room. 12:08 No provider procedures requiring assistance completed. aa5 14:45 Patient admitted, IV remains in place. aa5 14:52 Report given to Trice TIDWELL Charge nurse. aj Administered Medications: 06:45 Drug: fentaNYL (PF) 50 mcg Route: IVP; Site: right forearm; rr5 07:20 Follow up: Response: No adverse reaction; Pain is unchanged, physician notified aa5 07:30 Drug: morphine 4 mg Route: IVP; Site: right forearm; aa5 07:40 Follow up: Response: No adverse reaction aa5 07:30 Drug: Zofran 4 mg Route: IVP; Site: right forearm; aa5 07:40 Follow up: Response: No adverse reaction aa5 10:05 Drug: NS 0.9% 500 ml Route: IV; Rate: bolus; Site: right forearm; aa5 11:00 Follow up: IV Status: Completed infusion; IV Intake: 500ml aa5 11:01 Drug: Clindamycin 900 mg Route: IVPB; Infused Over: 30 mins; Site: right forearm; aa5 11:31 Follow up: Response: No adverse reaction; IV Status: Completed infusion aa5 11:23 Drug: morphine 4 mg Route: IVP; Site: right forearm; aa5 11:45 Follow up: Response: No adverse reaction aa5 Intake: 11:00 IV: 500ml; Total: 500ml. aa5 Outcome: 10:02 Decision to Hospitalize by Provider. pm1 14:45 Admitted to Tele accompanied by tech, via stretcher, with chart, Report called to aaYousif Carnes RN (charge nurse) 14:45 Condition: stable 14:45 Instructed on the need for admit, Demonstrated understanding of instructions. 15:05 Patient left the ED. aa5 Signatures: Dispatcher [employer] Yojana Lawson, RN RN kenna Downey, Leonila Fuchs, RN RN aa5 Daljit Mujica, SWEATBAND MAKER SWEATBAND MAKER pm1 Danay Lawrence, RN RN Eliza Alejandro dt2 Rojas Tejada RN RN rr5
--- NOTE | 2019-03-26 10:02 | EDPHYS ---
Physician Documentation [facility] Name: Poli Frankel Jr Age: 44 yrs Sex: Male : 1975 Arrival Date: 03/26/2019 Time: 06:09 Bed 5 Private MD: ED Physician Lebron Hull HPI: 03/26 07:15 This 44 yrs old Male presents to ER via EMS with complaints of Right Leg Pain pm1 and Swelling. 07:15 The patient presents with pain, that is acute, swelling. The complaints affect the pm1 right leg. Context: The problem was sustained at a [facility] or assisted living facility, resulted from an unknown cause. 07:15 Onset: The symptoms/episode began/occurred today. Modifying factors: The symptoms are pm1 alleviated by nothing. the symptoms are aggravated by touching. Associated signs and symptoms: Pertinent positives: calf tenderness, swelling, warmth, of the right lower leg, Pertinent negatives fever, numbness, tingling. Treatment prior to arrival includes: Tylenol at [facility]. Severity of symptoms: in the emergency department the symptoms are actually worse. The patient has experienced similar episodes in the past, chronically, but today's symptoms are worse, More swollen. Historical: - Allergies: 06:18 cantalope; ea - Home Meds: 06:18 spironolactone 50 mg Oral tab 2 tabs 3 times per day [Active]; Xifaxan 550 mg oral tab ea 1 tab 2 times per day [Active]; - PMHx: 06:18 Cirrhosis; ea - Immunization history:: Adult Immunizations up to date. - Social history:: Smoking status: Patient/guardian denies using tobacco. - Ebola Screening: : No symptoms or risks identified at this time. ROS: 07:15 Constitutional: Negative for fever, chills, and weight loss, Eyes: Negative for injury, pm1 pain, redness, and discharge, ENT: Negative for injury, pain, and discharge, Neck: Negative for injury, pain, and swelling, Cardiovascular: Negative for chest pain, palpitations, and edema, Respiratory: Negative for shortness of breath, cough, wheezing, and pleuritic chest pain, Abdomen/GI: Negative for abdominal pain, nausea, vomiting, diarrhea, and constipation, Back: Negative for injury and pain. 07:15 Skin: Negative for injury, rash, and discoloration, Neuro: Negative for headache, weakness, numbness, tingling, and seizure. 07:15 MS/extremity: Positive for pain, of the right calf and right ring, Negative for deformity. Exam: 07:15 Constitutional: This is a well developed, well nourished patient who is awake, alert, pm1 and in no acute distress. Head/Face: Normocephalic, atraumatic. Eyes: Pupils equal round and reactive to light, extra-ocular motions intact. Lids and lashes normal. Conjunctiva and sclera are non-icteric and not injected. Cornea within normal limits. Periorbital areas with no swelling, redness, or edema. ENT: Nares patent. No nasal discharge, no septal abnormalities noted. Tympanic membranes are normal and external auditory canals are clear. Oropharynx with no redness, swelling, or masses, exudates, or evidence of obstruction, uvula midline. Mucous membranes moist. Neck: Trachea midline, no thyromegaly or masses palpated, and no cervical lymphadenopathy. Supple, full range of motion without nuchal rigidity, or vertebral point tenderness. No Meningismus. Chest/axilla: Normal chest wall appearance and motion. Nontender with no deformity. No lesions are appreciated. 07:15 Respiratory: Lungs have equal breath sounds bilaterally, clear to auscultation and percussion. No rales, rhonchi or wheezes noted. No increased work of breathing, no retractions or nasal flaring. Abdomen/GI: Soft, non-tender, with normal bowel sounds. No distension or tympany. No guarding or rebound. No evidence of tenderness throughout. Back: No spinal tenderness. No costovertebral tenderness. Full range of motion. 07:15 Cardiovascular: Rate: tachycardic, Rhythm: regular, Edema: bilateral lower extremity, edema greater on right lower extremity. 07:15 : Male external genitalia: swelling, of the scrotum is noted, tenderness, is not appreciated. 07:15 Musculoskeletal/extremity: Extremities: noted in the right ring: swelling, tenderness. 07:15 Skin: Appearance: normal except for affected area, cellulitis, that is mild, on the right ring. 07:15 Neuro: Orientation: is normal, Mentation: is normal, Sensation: is normal, no obvious gross deficits. Vital Signs: 06:13 BP 127 / 67; Pulse 118; Resp 19; Temp 98.4; Pulse Ox 100% on R/A; ea 06:45 BP 115 / 74; Pulse 118; Resp 20; Pulse Ox 99% ; Pain 10/10; rr5 07:20 BP 124 / 78; Pulse 116; Resp 16 S; Temp 98.0(O); Pulse Ox 99% on R/A; Pain 10/10; aa5 08:00 BP 118 / 77; Pulse 120; Resp 18 S; Pulse Ox 99% on R/A; Pain 9/10; aa5 09:00 BP 103 / 60; Pulse 125; Resp 18 S; Pulse Ox 98% on R/A; aa5 10:00 BP 132 / 68; Pulse 120; Resp 16 S; Pulse Ox 98% on R/A; aa5 12:00 BP 107 / 80; Pulse 118; Resp 18 S; Temp 98.0(O); Pulse Ox 99% on R/A; Pain 9/10; aa5 14:00 BP 109 / 69; Pulse 118; Resp 16 S; Pulse Ox 99% on R/A; Pain 9/10; aa5 MDM: 06:16 Patient medically screened. pm1 09:53 Data reviewed: vital signs. Data interpreted: Pulse oximetry: on room air is 99 %. pm1 Interpretation: normal. 10:00 Counseling: I had a detailed discussion with the patient and/or guardian regarding: the pm1 historical points, exam findings, and any diagnostic results supporting the discharge/admit diagnosis, lab results, radiology results, the need for further work-up and treatment in the hospital. 11:43 Physician consultation: Pilar Gracia MD would like further tests performed, CT scan, pm1 lactate, procalcitonin, U/S RUQ, in the emergency department to see patient at 11:30. 03/26 06:32 Order name: Urine Drug Screen pm1 03/26 06:32 Order name: CBC with Diff; Complete Time: 09:38 pm1 03/26 06:32 Order name: BMP; Complete Time: 07:18 pm03/26 06:32 Order name: LFT's; Complete Time: 07:18 pm03/26 07:29 Order name: PT-INR; Complete Time: 08:07 pm03/26 08:57 Order name: Manual Differential; Complete Time: 09:38 EDMS 03/26 06:32 Order name: Extremity Venous Uni Ltd US; Complete Time: 08:52 pm03/26 07:29 Order name: Chest Single View XRAY; Complete Time: 08:51 pm03/26 09:52 Order name: Blood Culture Adult (2) pm03/26 11:28 Order name: CT Abd/Pelvis - Without Contrast 03/26 11:28 Order name: Procalcitonin; Complete Time: 13:32 pm03/26 11:28 Order name: Lactate; Complete Time: 13:13 pm1 03/26 11:29 Order name: US Abdomen Limited pm03/26 13:13 Order name: US; Complete Time: 13:13 EDMS 03/26 06:32 Order name: IV Saline Lock; Complete Time: 06:58 pm1 03/26 07:39 Order name: EKG; Complete Time: 07:39 pm1 03/26 07:39 Order name: EKG - Nurse/Tech; Complete Time: 07:48 pm03/26 13:22 Order name: CT; Complete Time: 13:32 EDMS Administered Medications: 06:45 Drug: fentaNYL (PF) 50 mcg Route: IVP; Site: right forearm; rr5 07:20 Follow up: Response: No adverse reaction; Pain is unchanged, physician notified aa5 07:30 Drug: morphine 4 mg Route: IVP; Site: right forearm; aa5 07:40 Follow up: Response: No adverse reaction aa5 07:30 Drug: Zofran 4 mg Route: IVP; Site: right forearm; aa5 07:40 Follow up: Response: No adverse reaction aa5 10:05 Drug: NS 0.9% 500 ml Route: IV; Rate: bolus; Site: right forearm; aa5 11:00 Follow up: IV Status: Completed infusion; IV Intake: 500ml aa5 11:01 Drug: Clindamycin 900 mg Route: IVPB; Infused Over: 30 mins; Site: right forearm; aa5 11:31 Follow up: Response: No adverse reaction; IV Status: Completed infusion aa5 11:23 Drug: morphine 4 mg Route: IVP; Site: right forearm; aa5 11:45 Follow up: Response: No adverse reaction aa5 Disposition: 03/26/19 10:02 Hospitalization ordered by Pilar Gracia for Inpatient Admission. Preliminary diagnosis are Acute kidney injury, Anasarca, Cellulitis of right lower limb. - Bed requested for Telemetry/MedSurg (Inpatient). - Status is Inpatient Admission. aa5 - Condition is Stable. - Problem is new. - Symptoms have improved. UTI on Admission? No Signatures: Dispatcher [employer] EDMS Leonila Kelley RN RN aa5 Daljit Mujica, ANITHA BONE DRIER OPERATOR pm1 Danay Lawrence RN RN ea Botello, Elizabeth eb Roque, Raymond, RN RN rr5 Corrections: (The following items were deleted from the chart) 10:47 10:02 Hospitalization Ordered by Amber Greene MD for Inpatient Admission. Preliminary pm1 diagnosis is Acute kidney injuryAnasarca; Cellulitis of right lower limb. Bed requested for Telemetry/MedSurg (Inpatient). Status is Inpatient Admission. Condition is Stable. Problem is new. Symptoms have improved. UTI on Admission? No. pm1 13:55 10:47 03/26/2019 10:02 Hospitalization Ordered by Pilar Gracia MD for Inpatient eb Admission. Preliminary diagnosis is Acute kidney injuryAnasarca; Cellulitis of right lower limb. Bed requested for Telemetry/MedSurg (Inpatient). Status is Inpatient Admission. Condition is Stable. Problem is new. Symptoms have improved. UTI on Admission? No. pm1 15:05 06:32 Urine Dipstick-Ancillary ordered. pm1 aa5 15:05 13:55 03/26/2019 10:02 Hospitalization Ordered by Pilar Gracia MD for Inpatient aa5 Admission. Preliminary diagnosis is Acute kidney injuryAnasarca; Cellulitis of right lower limb. Bed requested for Telemetry/MedSurg (Inpatient). Status is Inpatient Admission. Condition is Stable. Problem is new. Symptoms have improved. UTI on Admission? No. eb
[2019-03-26] MEDS ORDERED: NA CHLORIDE 0.9% 500 ML ONE (10:17)
[2019-03-26] MEDS ORDERED: CLINDAMYCIN 900MG/D5W 900 MG/50 ML IVPB IV ONE (10:18)
--- NOTE | 2019-03-26 13:12 | RAD REPORT ---
EXAM DESCRIPTION: US - Abdomen Exam Limited - 03/26/2019 1:04 pm CLINICAL HISTORY: RUQ COMPARISON: Abdomen Exam Limited dated 03/04/2019 FINDINGS: The gallbladder demonstrates no gallstones. No pericholecystic fluid or gallbladder wall t hickening. The common bile duct is normal measuring 6 mm. The liver demonstrates no findings of intrahepatic biliary dilatation. Ascites is seen. IMPRESSION: Negative gallbladder/ biliary tree findings. Ascites
--- NOTE | 2019-03-26 13:21 | RAD REPORT ---
EXAM DESCRIPTION: CT - Abdomen Pelvis Wo Contrast - 03/26/2019 1:14 pm CLINICAL HISTORY: Abdominal pain. anasarca COMPARISON: Abdomen Exam Limited dated 03/26/2019 TECHNIQUE: CT imaging of the abdomen and pelvis was performed without contrast. Solid organ, bowel a nd vascular assessment is limited due to lack of IV and oral contrast. All CT scans are performed using dose optimization technique as appropriate and may include automated exposure control or mA/KV adjustment according to patient size. FINDINGS: Small left pleural effusion is seen. Atelectasis is present both lung bases, greater on th e left. The liver appears shrunken in size and nodular compatible with cirrhosis. Mild splenomegaly is eviden t. The pancreas, adrenal glands and kidneys are unremarkable for noncontrast study. Significant ascites is seen. There is a large amount of edema in the soft tissues about the abdomen c ompatible with significant anasarca. No bowel obstruction or free air. No fracture. IMPRESSION: Prominent anasarca with significant ascites and small left pleural effusion. Shrunken, nodular and cirrhotic liver. Mild splenomegaly. A limited non-contrast examination was performed as detailed.
--- NOTE | 2019-03-26 14:52 | EKG ---
Test Date: 2019-03-26 Test Time: 08:05:07 Pigment Furnace Tender: JONNY MEASUREMENT RESULTS: Intervals: Rate: 117 NM: 122 QRSD: 84 QT: 338 QTc: 471 [place]: P: 60 NM: 122 QRS: 45 T: 52 INTERPRETIVE STATEMENTS: Sinus tachycardia Septal infarct, age undetermined Abnormal ECG Compared to ECG 03/03/2019 19:21:01 Sinus rhythm no longer present Prolonged QT interval no longer present Myocardial infarct finding still present Electronically Signed On 03-26-19 14:51:26 CDT by Jorge Trujillo
[2019-03-26] MEDS ORDERED: ALBUMIN HUMAN 25% 100 ML IV ONE (16:17)
[2019-03-26] MEDS: D50W 25 GM/50 ML SYRINGE IV ONE ×2 (16:46→17:29)
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
[2019-03-26] MEDS ORDERED: ENOXAPARIN 40 MG/0.4 ML SQ SCH (17:00)
[2019-03-26] MEDS ORDERED: D50W 25 GM/50 ML SYRINGE IV ONE ×2 (18:46→23:46)
[2019-03-26] MEDS: FUROSEMIDE 40 MG/4 ML VIAL IV SCH (19:33)
[2019-03-26] MEDS: CEFTRIAXONE/SWI 2gm 2 GM/20 ML SYR IVP SCH (21:00)
[2019-03-26] MEDS ORDERED: CEFTRIAXONE/SWI 1gm 2 GM/20 ML SYR ONE (21:57)
[2019-03-27] MEDS ORDERED: CLINDAMYCIN 600MG/D5W 600 MG/50 ML BAG IV ONE (00:32)
[2019-03-27] MEDS ORDERED: NA CHLORIDE 0.9% 100 ML ONE (00:40)
[2019-03-27] MEDS ORDERED: D50W 25 GM/50 ML SYRINGE IV ONE ×2 (02:05→15:00)
[2019-03-27] MEDS ORDERED: ALBUMIN HUMAN 25% 200 ML IV ONE (03:06)
[2019-03-27] MEDS ORDERED: ALBUMIN HUMAN 25% 150 ML IV ONE ×2 (04:05→11:38)
[2019-03-27] MEDS ORDERED: SODIUM CHLORIDE 0.9% 10ML INJ IV PRN (05:00)
[2019-03-27] MEDS ORDERED: PANTOPRAZOLE 40 MG INJ ONE (05:14)
[2019-03-27] MEDS: CLINDAMYCIN INJ 300 MG in NA CHLORIDE 0.9% 50 ML IV SCH ×5 (05:14→20:08)
[2019-03-27] MEDS: PANTOPRAZOLE 40 MG INJ IVP SCH ×2 (05:14→23:52)
[2019-03-27 06:43] LABS: Hematocrit 22.5 % (39.6-49.0); MPV 8.5 fL (7.6-11.3); RBC Red Blood Cell Count 2.21 M/uL (4.33-5.43)
[2019-03-27 06:59] LABS: Magnesium 1.6 mg/dL (1.8-2.4); Phosphorus 5.9 mg/dL (2.5-4.9)
[2019-03-27 07:28] LABS: Albumin 2.4 g/dL (3.4-5.0); Bilirubin Total 1.7 mg/dL (0.2-1.0); Potassium 4.7 mmol/L (3.5-5.1); Protein, Total 5.5 g/dL (6.4-8.2)
[2019-03-27 07:33] LABS: Blood Morphology Comment NOTED (NOT SEEN); Platelet Estimate DECR
[2019-03-27 07:34] LABS: Anisocytosis 1+; Poikilocytosis 1+
[2019-03-27] MEDS ORDERED: MAGNESIUM SULFATE 1 gm IVPB 1 GM/100 ML BAG IV ONE (09:00)
[2019-03-27] MEDS: CEFTRIAXONE/SWI 2gm 2 GM/20 ML SYR IVP SCH (09:00)
[2019-03-27 09:59] LABS: Urine Appearance TURBID; Urine Blood 1+ (NEG); Urine Color RED; Urine Glucose NEGATIVE (NEG); Urine Protein 2+ (NEG); Urine Specific Gravity >=1.030 (1.005-1.030)
[2019-03-27 10:05] LABS: Urine Bilirubin 2+ (NEG); Urine Microscopic Reflex ORDER UMIC
[2019-03-27] MEDS: FUROSEMIDE 40 MG/4 ML VIAL IV SCH (10:10)
[2019-03-27 10:19] LABS: Barbiturates NEGATIVE (NEGATIVE); Benzodiazepines NEGATIVE (NEGATIVE); Cocaine NEGATIVE (NEGATIVE); METHAMPHETAM POSITIVE (NEGATIVE); Methadone NEGATIVE (NEGATIVE); Opiates POSITIVE (NEGATIVE); Phencyclidine NEGATIVE (NEGATIVE); THC Cannibis NEGATIVE (NEGATIVE)
[2019-03-27 10:39] LABS: Urine Amorphous Sediment 1+ /HPF (NONE SEEN); Urine Bacteria >50 /HPF (NONE SEEN); Urine Culture Reflex Order REFLEXED; Urine Mucus LIGHT /HPF (NONE SEEN); Urine RBC <5 /HPF (NONE SEEN)
--- NOTE | 2019-03-27 11:41 | RAD REPORT ---
EXAM DESCRIPTION: US - Abdomen Exam Limited - 03/27/2019 11:22 am CLINICAL HISTORY: Ascites COMPARISON: March 26, 2018 FINDINGS: Since the prior examination there has been a significant decrease in the amount of ascites within the abdomen and pelvis status post diuresis. Only a small amount of residual ascites is prese nt. However, anasarca persists within the tissues. IMPRESSION: Significant decrease in the amount of ascites. Only a small amount of ascites is present within the abdomen and pelvis. The exam was discussed with Dr. Gracia
[2019-03-27] MEDS ORDERED: ALBUMIN HUMAN 25% 100 ML IV SCH (13:00)
[2019-03-27] MEDS ORDERED: MORPHINE 4 MG/ML SYR IV ONE (16:35)
--- NOTE | 2019-03-27 16:36 | ECHO ---
HEIGHT: 6 ft 0 in WEIGHT: 303 lb 4.8 oz DATE OF STUDY: 03/27/[address]: Pilar Gracia MD 2-DIMENSIONAL: YES M.MODE: YES DOPPLER: YES COLOR FLOW: YES TDS: YES PORTABLE: YES DEFINITY: NO BUBBLE STUDY: NO DIAGNOSIS: ANASARCA CARDIAC HISTORY: CATHERIZATION: NO SURGERY: NO PROSTHETIC VALVE: NO PACEMAKER: NO MEASUREMENTS (cm) DIASTOLIC (NORMALS) SYSTOLIC (NORMALS) IVSd 0.9 (0.6-1.2) LA Diam 3.9 (1.9-4.0) LVEF 78% LVIDd 3.4 (3.5-5.7) LVIDs 1.9 (2.0-3.5) %FS 46% LVPWd 1.2 (0.6-1.2) Ao Diam 3.3 (2.0-3.7) 2 DIMENSIONAL ASSESSMENT: RIGHT ATRIUM: NORMAL LEFT ATRIUM: NORMAL RIGHT VENTRICLE: NORMAL LEFT VENTRICLE: NORMAL TRICUSPID VALVE: NORMAL MITRAL VALVE: MITRAL ANNULAR CALCIFICATION PULMONIC VALVE: NORMAL AORTIC VALVE: SCLEROSIS PERICARDIAL EFFUSION: NONE AORTIC ROOT: NORMAL LEFT VENTRICULAR WALL MOTION: NORMAL. DOPPLER/COLOR FLOW: MILD TRICUSPID REGURGITATION. COMMENTS: TECHNICALLY DIFFICULT STUDY. NORMAL LEFT VENTRICULAR SIZE AND FUNCTION. MILD TRICUSPID REGURGITATION. MITRAL ANNULAR CALCIFICATION. AORTIC SCLEROSIS, NO STENOSIS. TECHNOLOGIST: FALGUNI LOVE
[2019-03-27] MEDS ORDERED: ALBUMIN HUMAN 25% 50 ML IV ONE (16:48)
--- NOTE | 2019-03-27 17:02 | P.PN ---
Subjective Date of Service: 03/27/19 Chief Complaint: Right lower extremity swelling and pain Subjective: Improving Patient seen and examined at bedside. No family at bedside. Chart reviewed and case discussed with nursing staff. Patient much more awake and alert. He is now only with the staff, asking for pain medications. Complaining of abdominal pain, leg pain, and hurting all over in general. Review of Systems 10-point ROS is otherwise unremarkable Physical Examination - Vital Signs Temperature: 98.5 F Blood Pressure: 138/66 Pulse: 115 Respirations: 12 Pulse Ox (%): 99 - Physical Exam General: Alert, Oriented x3, Moderate distress HEENT: Atraumatic, PERRLA, EOMI Neck: Supple, JVD not distended Respiratory: Dull, Crackles/rales Cardiovascular: Edema (2-3+ pitting edema, waist down.) Gastrointestinal: Distended, Ascites, Tenderness Musculoskeletal: Swelling Integumentary: Tenderness/swelling Neurological: Normal speech, Normal strength at 5/5 x4 extr, Normal tone, Cranial nerves 3-12 intact Lymphatics: No axilla or inguinal lymphadenopathy Assessment And Plan - Current Problems (Diagnosis) (1) Sepsis Current Visit: Yes Status: Acute (2) Edema due to hypoalbuminemia Current Visit: No Status: Acute (3) Alcoholic cirrhosis of liver Current Visit: No Status: Acute (4) Anasarca Current Visit: No Status: Acute (5) Alcohol abuse Current Visit: Yes Status: Acute (6) Ascites Current Visit: No Status: Acute (7) Acute kidney injury Current Visit: Yes Status: Acute (8) Acute neutrophilia Current Visit: Yes Status: Acute (9) Hypoglycemia Current Visit: Yes Status: Acute - Plan Patient was transferred to the ICU due to hypoglycemia. Continue hypoglycemia protocol. Blood sugars now more stable. Continue Fluid restriction, sodium restriction Albumin given x2 and IV Lasix for hypoalbuminemia/anasarca; meld score 26 Ultrasound-guided paracentesis ordered. After diuresis, repeat ultrasound showed minimal ascites and therefore paracentesis unable to be done. Nephrology consulted, recommendations appreciated. Drug screen positive for amphetamines. Continue IV antibiotics - patient has multiple possible sources including scan, ascites, scrotal cellulitis; Avoid nephrotoxic medications Disposition: Symptomatic improvement
[2019-03-27] MEDS: ALBUMIN HUMAN 25% 150 ML IV SCH (18:06)
[2019-03-27] MEDS: D50W 25 GM/50 ML SYRINGE IV PRN ×2 (18:08→23:52)
[2019-03-27 18:55] LABS: Magnesium 1.8 mg/dL (1.8-2.4); Phosphorus 5.3 mg/dL (2.5-4.9); Potassium 4.6 mmol/L (3.5-5.1)
[2019-03-27 19:11] LABS: Absolute Lymphocytes (CBC) 0.5 K/uL (0.7-4.9); Basophils % 0.5 % (0-1.3); Hematocrit 20.8 % (39.6-49.0); MPV 8.9 fL (7.6-11.3); RBC Red Blood Cell Count 2.04 M/uL (4.33-5.43)
--- NOTE | 2019-03-27 20:19 | P.CNS ---
Date of Consult: 03/27/19 Reason for Consult: MARIAH Chief Complaint: Right lower extremity swelling and pain History of Present Illness: Pt is apoor historian , Hx obtained from chart A 44 Y/o man with PMhx of alcoholic liver cirrhosis and recreational drugs abuse pt presented complaining of LE edema , abd edema and pain Cr was normal on march 09 inb ER Cr 2.7 pt complaining of LE pain, and cant give more infromation initial US showed significant ascitis pt initially recived 500ml of NS in ER , then recived lasix refused munoz cath placement Allergies No Known Allergies Allergy (Unverified 03/04/19 00:26) Home Medications: Bumetanide [Bumex*] 1 mg PO BID 03/26/19 Lactulose [Cephulac*] 30 ml PO BID PRN 03/26/19 Rifaximin [Xifaxan] 550 mg PO BID 03/26/19 Spironolactone 100 mg PO DAILY 03/26/19 - Past Medical/Surgical History Diabetic: No -: Alcoholic liver cirrhosis -: tonsillectomy -: eye surgery -: appendicitis -: paracentesis - Social History Smoking Status: Current some day smoker Alcohol use: Yes CD- Drugs: No Caffeine use: Yes Place of Residence: [place] Physical Examination Temp Pulse Resp BP Pulse Ox 98.5 F 115 H 12 138/66 99 03/27/19 17:01 03/27/19 17:01 03/27/19 17:01 03/27/19 17:01 03/27/19 17:01 General: Moderate distress HEENT: Atraumatic Neck: Supple, Without JVD or thyroid abnormality Cardiovascular: Regular rate/rhythm, Normal S1 S2, No gallops, No rubs, Edema Gastrointestinal: Distended, Tenderness Musculoskeletal: Swelling - Problems (1) Acute kidney injury Current Visit: Yes Status: Acute Conclusions/Impression: MARIAH reason unclear could due to RPGN vs HRS type I will hold on lasix as repeated US showed no [place] will order serology w/u Not candidate for renal biopsy due to coagulopathy and thrombocytopenia will start on albumin and octerotide will send for CPK Alcoholic liver cirrhosis monitor for withdrawal Anemia transfuse to keep Hb >7.0 Thrombocytopenia due to cirrhosis Severe sepsis with bandemia on Rocephin UTI cont rocephin Anasarca hold on diuretics for now poor prognosis
[2019-03-27] MEDS ORDERED: CEFTRIAXONE/SWI 2gm 2 GM/20 ML SYR IVP SCH (21:00)
[2019-03-27] MEDS ORDERED: FUROSEMIDE 40 MG/4 ML VIAL IV SCH (21:00)
[2019-03-27] MEDS: OCTREOTIDE ACETATE 100 MCG/ML IV SCH (21:00)
[2019-03-27] MEDS ORDERED: NA CHLORIDE 0.9% 500 ML ONE (21:50)
[2019-03-27 22:36] LABS: Anisocytosis 3+; Blood Morphology Comment NOTED (NOT SEEN); Hypochromasia 2+; Ovalocytes 3+; Platelet Estimate ADEQ; Teardrop Cell 2+; Urine White Blood Cell Casts OK
[2019-03-27] MEDS: LACTULOSE 20 GM/30 ML UCUP PO SCH (23:53)
[2019-03-28] MEDS ORDERED: FUROSEMIDE 40 MG/4 ML VIAL IV ONE (00:05)
[2019-03-28] MEDS ORDERED: FUROSEMIDE 40 MG/4 ML VIAL ONE ×2 (00:15→03:48)
[2019-03-28] MEDS ORDERED: OCTREOTIDE ACETATE 500 MCG/ML ONE (00:16)
[2019-03-28] MEDS: D50W 25 GM/50 ML SYRINGE IV PRN ×2 (00:52→05:08)
[2019-03-28] MEDS: ALBUMIN HUMAN 25% 150 ML IV SCH ×2 (01:00→09:00)
[2019-03-28] MEDS: IPRATROPIUM BROM 0.5MG/2.5ML NEB SCH ×5 (01:05→20:00)
[2019-03-28] MEDS: ALBUTEROL 2.5 MG/3 ML NEB SOL NEB SCH ×3 (01:05→07:35)
[2019-03-28] MEDS ORDERED: MORPHINE 2 MG/ML SYR IV ONE ×2 (01:25→01:30)
[2019-03-28] MEDS ORDERED: RSI MEDICATION KIT IV ONE (01:37)
[2019-03-28] MEDS ORDERED: MORPHINE 4 MG/ML SYR ONE (01:38)
[2019-03-28] MEDS ORDERED: PROPOFOL 1,000 MG/100 ML VIAL IV ONE (01:50)
[2019-03-28] MEDS ORDERED: HYDROCORTISONE SUC 100 MG INJ IV ONE (02:14)
[2019-03-28] MEDS ORDERED: NA CHLORIDE 0.9% 250 ML IV PRN (02:18)
[2019-03-28] MEDS ORDERED: FENTANYL CITR 100 MCG/2 ML ONE (02:24)
[2019-03-28] MEDS: CLINDAMYCIN INJ 300 MG in NA CHLORIDE 0.9% 50 ML IV SCH ×2 (05:21→05:57)
[2019-03-28 05:26] LABS: Absolute Lymphocytes (CBC) 0.3 K/uL (0.7-4.9); Basophils % 0.5 % (0-1.3); Hematocrit 22.9 % (39.6-49.0); Lymphocytes % 1.7 % (15.3-44.8); MPV 8.5 fL (7.6-11.3); RBC Red Blood Cell Count 2.24 M/uL (4.33-5.43)
[2019-03-28 05:49] LABS: Arterial Blood Carboxyhemoglob 1.5 % (0-1.5); Blood Gas Oxyhemoglobin 95.6 % (94-97); Blood O2 Saturation 97.9 % (92-98.5)
[2019-03-28 05:51] LABS: Albumin 2.7 g/dL (3.4-5.0); Bilirubin Total 2.2 mg/dL (0.2-1.0); Magnesium 1.7 mg/dL (1.8-2.4); Potassium 4.9 mmol/L (3.5-5.1); Protein, Total 5.4 g/dL (6.4-8.2)
[2019-03-28] MEDS: PROPOFOL 1,000 MG/100 ML VIAL IV PRN ×2 (05:53→14:45)
[2019-03-28] MEDS: LORazepam 2 MG/ML VIAL IV PRN (06:07)
[2019-03-28] MEDS: FENTANYL CITR 100 MCG/2 ML IV PRN (06:07)
[2019-03-28] MEDS: OCTREOTIDE ACETATE 100 MCG/ML IV SCH ×3 (06:41→21:05)
--- NOTE | 2019-03-28 07:27 | RAD REPORT ---
EXAM DESCRIPTION: Adolfo Single View03/28/2019 1:13 am CLINICAL HISTORY: Shortness breath COMPARISON: March 26, 2019 FINDINGS: Moderate to marked bilateral pulmonary alveolar opacities have developed. Heart is normal size IMPRESSION: Mild to moderate bilateral pulmonary opacities probably represent pulmonary edema
--- NOTE | 2019-03-28 07:29 | RAD REPORT ---
EXAM DESCRIPTION: Adolfo Single View03/28/2019 2:07 am CLINICAL HISTORY: Shortness of breath COMPARISON: March 27 2019 FINDINGS: Endotracheal tube is been inserted with its tip 5 centimeters above the popeye. Bilateral pulmonary opacities have worsened in are extensive. Heart is normal size IMPRESSION: Worsening in extensive bilateral pulmonary opacities probably indicating pulmonary edema Endotracheal tube with its tip 5 centimeters above the popeye
[2019-03-28 07:35] LABS: CKMB Creatine Kinase MB 7.4 ng/mL (0.3-3.6); Ferritin 213.8 ng/mL (26-388); Folic Acid, (Folate) 5.7 ng/mL (3.1-17.5); Uric Acid 9.9 mg/dL (3.5-7.2)
[2019-03-28] MEDS ORDERED: MAGNESIUM SULFATE 1 gm IVPB 1 GM/100 ML BAG IV ONE (08:00)
[2019-03-28] MEDS ORDERED: ALBUMIN HUMAN 25% 12.5 GM, FUROSEMIDE 100 MG in NA CHLORIDE 0.9% 40 ML IV SCH (08:00)
--- NOTE | 2019-03-28 08:04 | P.PN ---
Date of Service: 03/28/19 Subjective: Received call by RNTrinh, around 8:00 p.m.. Patient's oxygen requirements had worsened towards the end of the day shift. Patient had been given morphine and afterwards required oxygen. Oxygen requirements had increased to 5 L by nasal cannula. Labs were ordered by Nephrology, and with a low hemoglobin of 6.7 patient required blood transfusion. However, patient's respiratory status continued to worsen. Patient was placed on a non-rebreather. Chest x-ray revealed pulmonary edema. The patient was given Lasix but very little urine output. Patient was refusing a Nuno catheter. Since patient respiratory staus continued to decline we decided to proceed with intubation(spoke with patient and he said he wanted everything done to save his life). Nuno catheter was placed because we needed to monitor patient's urine output. Very little urine output. Additional Lasix given. Patient will need an albumin and Lasix drip. Patient may be headed towards hemodialysis. Objective: PHYSICAL EXAMINATION: VITAL SIGNS: reviewed GENERAL: respiratory distress HEENT: WNL HEART: tachycardic with no murmur LUNGS: diminished breath sounds with bibasilar crackles ABDOMEN: Soft, nontender and nondistended. EXTREMITIES: patient with anasarca NEURO: confused and agitated LABORATORY DATA: reviewed ASSESSMENT: 1. Hepatic renal syndrome with hypoalbuminemia 2. Congestive heart failure exacerbation with alveolar edema 3. Acute renal failure 4. Liver cirrhosis /hepatic failure 5. Respiratory failure PLAN: 1. Mechanical ventilation; Monitor oxygenation. With alveolar edema may required increased PEEP pressure 2. Diuresed with albumin the Lasix drip 3. vitamin K to reverse the INR 4. Surgery consultation may be needed if dialysis is required 5. Pulmonary consultation 6. Continue octreotide and Protonix 7. Monitor H&H closely 8. Poor prognosis/patient unlikely to survive this hospital stay. Critical care time spent with patient was 100 min
[2019-03-28 08:05] LABS: Blood Morphology Comment NOTED (NOT SEEN); Platelet Estimate DECR
[2019-03-28 08:07] LABS: Anisocytosis 1+; Macrocytosis 1+; Ovalocytes 1+
[2019-03-28] MEDS: LACTULOSE 20 GM/30 ML UCUP PO SCH ×2 (09:00→21:00)
[2019-03-28] MEDS: FUROSEMIDE 40 MG/4 ML VIAL IV SCH ×2 (09:00→17:00)
[2019-03-28] MEDS ORDERED: FAMOTIDINE 20 MG/2 ML VIAL IV SCH (09:00)
[2019-03-28] MEDS: PANTOPRAZOLE 40 MG INJ IVP SCH ×2 (09:34→11:00)
--- NOTE | 2019-03-28 10:06 | P.CNS ---
Date of Consult: 03/28/19 Chief Complaint: Respiratory failure History of Present Illness: Patient is 44 years of age with cirrhosis of the liver admitted with respiratory distress generalized anasarca lower extremity edema had to be intubated last night currently on a propofol drip unresponsive is generalized edema. History of all alcohol abuse noncompliance the Zocor renal failure Allergies No Known Allergies Allergy (Unverified 03/04/19 00:26) Home Medications: Bumetanide [Bumex*] 1 mg PO BID 03/26/19 Lactulose [Cephulac*] 30 ml PO BID PRN 03/26/19 Rifaximin [Xifaxan] 550 mg PO BID 03/26/19 Spironolactone 100 mg PO DAILY 03/26/19 - Past Medical/Surgical History Diabetic: No -: Alcoholic liver cirrhosis -: tonsillectomy -: eye surgery -: appendicitis -: paracentesis - Social History Smoking Status: Current some day smoker Alcohol use: Yes CD- Drugs: No Caffeine use: Yes Place of Residence[facility] Review of Systems is unable to be obtained Physical Examination Temp Pulse Resp BP Pulse Ox 98.3 F 99 H 20 103/56 L 95 03/28/19 04:00 03/28/19 10:00 03/28/19 10:00 03/28/19 10:00 03/28/19 10:00 General: Unresponsive Respiratory: Clear to auscultation bilaterally, Diminished Cardiovascular: Normal S1 S2, Edema (3+ generalized edema) Gastrointestinal: Normal bowel sounds, Soft and benign Musculoskeletal: Swelling Integumentary: No rashes, No breakdown - Problems (1) Respiratory failure Current Visit: Yes Status: Acute Plan: Patient is 44 years of age with this cirrhosis of the liver admitted with worsening renal failure presumed pulmonary edema renal function has worsened he is got gross anasarca was likely hepatorenal syndrome plan at this time is to change him over to Zosyn given 1 dose of vancomycin as per protocol he has broad -spectrum coverage blood cultures showing Gram positive rods continue with diuresis Rissa Eloisa start tube feeds as per terminologist fluid restriction prognosis very poor labs and x-rays reviewed urine drug screen positive for opioids and amphetamines Qualifiers: Chronicity: acute on chronic Respiratory failure complication: hypoxia and hypercapnia Qualified Code(s): J96.21 - Acute and chronic respiratory failure with hypoxia; J96.22 - Acute and chronic respiratory failure with hypercapnia
[2019-03-28] MEDS ORDERED: Pharmacy Consult 1 EA XX PRN (10:17)
[2019-03-28] MEDS ORDERED: VANCOMYCIN 2 GM in NA CHLORIDE 0.9% 500 ML IVPB SCH (11:00)
[2019-03-28] MEDS: THIAMINE 200 MG/2 ML INJ IVP SCH (11:00)
[2019-03-28 12:22] LABS: Arterial Blood Carboxyhemoglob 1.8 % (0-1.5); Blood Gas Oxyhemoglobin 86.9 % (94-97); Blood O2 Saturation 88.9 % (92-98.5)
[2019-03-28] MEDS: MIDODRINE HCL 5 MG TABLET PO SCH ×2 (14:00→21:00)
--- NOTE | 2019-03-28 15:07 | P.PN ---
Subjective Date of Service: 03/28/19 Chief Complaint: Respiratory failure Subjective: Worsening Patient seen and examined at bedside. No family at bedside. Chart reviewed and case discussed with nursing staff. Last night, patient with increased respiratory distress and hypoxia. Patient was intubated and sedated. This morning, patient continues to be sedated and intubated. No urine output noted overnight. Review of Systems 10-point ROS is otherwise unremarkable Physical Examination - Vital Signs Temperature: 98.8 F Blood Pressure: 105/58 Pulse: 99 Respirations: 20 Pulse Ox (%): 90 - Physical Exam General: Other (Intubated, sedated) Neck: Supple, JVD not distended Respiratory: Crackles/rales, Other (intubated) Cardiovascular: Regular rate/rhythm, Normal S1 S2, Edema Gastrointestinal: Distended Musculoskeletal: Swelling, Other (2-3+ Pitting edema from waist down) Assessment And Plan - Current Problems (Diagnosis) (1) Sepsis Current Visit: Yes Status: Acute (2) Edema due to hypoalbuminemia Current Visit: No Status: Acute (3) Alcoholic cirrhosis of liver Current Visit: No Status: Acute (4) Anasarca Current Visit: No Status: Acute (5) Alcohol abuse Current Visit: Yes Status: Acute (6) Ascites Current Visit: No Status: Acute (7) Acute kidney injury Current Visit: Yes Status: Acute (8) Acute neutrophilia Current Visit: Yes Status: Acute (9) Hypoglycemia Current Visit: Yes Status: Acute (10) Anemia Current Visit: Yes Status: Acute Qualifiers: Anemia type: unspecified type Qualified Code(s): D64.9 - Anemia, unspecified (11) Acute respiratory failure Current Visit: Yes Status: Acute Plan: Requiring intubation Qualifiers: Respiratory failure complication: hypoxia and hypercapnia Qualified Code(s) : J96.01 - Acute respiratory failure with hypoxia; J96.02 - Acute respiratory failure with hypercapnia (12) Drug abuse Current Visit: Yes Status: Acute - Plan Patient in the ICU ,required intubation. Pulmonary consulted, recommendations appreciated. Currently intubated and sedated. Continue vent management. Continue sedation. Patient with no urine output, worsenign MARIAH. Nephrology on board. They are recomending dialysis at this time as his symptoms will worsening if no UOP. General surgery, Dr. Willis consulted for dialysis catheter placement. Conitnue lasix drip and albumin until dialysis. Continue broad IV antibiotics with vancomycin and zosyn. Monitor labs Overall, very poor prognosis. Disposition: Continue to monitor in the ICU. Will need to discuss with family regarding goals of care and furhter steps. No family available today. Will attempt to call on telephone. Critical Care: Yes
[2019-03-28] MEDS ORDERED: NACHLORIDE 0.45% 0 ML IV ONE (15:19)
[2019-03-28] MEDS ORDERED: HEPARIN 5000 UNIT/ML 1 ML VIAL ONE (15:21)
[2019-03-28] MEDS ORDERED: LIDOCAINE 1% 20 ML MDV ONE (15:23)
--- NOTE | 2019-03-28 15:43 | P.CNS ---
Date of Consult: 03/28/19 PC: I was asked to place a central line in for dialysis this 44-year-old male. HPC: Patient apparently presented with hepatic failure, and now has renal failure. He requires acute dialysis due to fluid overload. PMH: Cirrhosis, alcohol abuse PSHx: NAD SOC: No known allergies SYS REVIEW: Unobtainable as patient is intubated on ventilator O/E sedated at the moment HEENT: Has elevated central venous pressure with external jugular veins distended Chest: Chest movement equal bile LOCO: No evidence any fractured clavicle DATA: Chest x-ray shows no other lines or instrumentation at the moment in the central venous vessels IMPRESSION: Lack of central access for dialysis PLAN: I will place a left subclavian hemodialysis catheter. This is going to be temporary. Consent forms have been signed.
--- NOTE | 2019-03-28 15:46 | P.OP ---
Preoperative diagnosis: Lack of vascular access Postoperative diagnosis: The same Primary procedure: Insertion of left subclavian hemodialysis catheter Anesthesia: Local Estimated blood loss: Contents Operative Technique: After obtaining consent, and performing a surgical time-out, the area of the left subclavian was prepped with a chlorhexidine solution draped in usual aseptic manner injected at the subclavicular area. The finer needle was now used to cannulate the left subclavian vein. The guidewire was passed easily down through this. We attained some mild ectopy. The skin was cut at the level of the insertion of the wire. This allowed us to paste 1st the smaller than the larger dilator over the guidewire to allow the catheter to lay in good position. The hemodialysis catheter was now placed using a modified Seldinger technique. The guidewire was removed in the catheter was flushed in the usual manner. Good blood flow out was obtained at that time. This catheter was then sutured in place in a sterile dressing applied. The chest x-ray is pending. Complications: None Transferred to: Recovery Room Condition: Good
--- NOTE | 2019-03-28 15:55 | RAD REPORT ---
EXAM DESCRIPTION: Adolfo Single View03/28/2019 3:42 pm CLINICAL HISTORY: Device placement/central venous catheter placement COMPARISON: March 28, 2019 FINDINGS: Tip of a central venous catheter lies within the superior vena cava. A pneumothorax is not present. Endotracheal tube with its tip well above the popeye Mild worsening in the right and some improvement in the left pulmonary opacities
--- NOTE | 2019-03-28 16:03 | PN ---
Date of Progress Note: 03/28/2019 Subjective: Patient was admitted with anasarca, hepatic encephalopathy, found to have severe anemia and acute kidney injury. He has spontaneously received transfusion, then developed acute respiratory distress. The patient was started on Lasix yesterday and with Lasix drip today. The patient is sti ll anuric. The patient on vent. Physical Examination: Vital Signs: Blood pressure 105/58, pulse of 99. The patient has no urine output. Chest: Crackles bilateral. Heart: S1, S2. Regular. Abdomen: Distended. Extremities: +3 edema. Laboratory Data: WBC 17.8, H and H 7.8/22.9, platelets 78. Sodium 140, potassium 4.9, bicarb 20, BU N 47, creatinine 3.6, GFR of 18, T-sat of 72. Procalcitonin above 3. Albumin 2.7. Serology still pending. Urinalysis, +2 protein. Medications: Current medications the patient is on include: 1.Lasix drip. 2.Albumin. 3.Zosyn and vanc. 4.Propofol. 5.Breathing treatment. Assessment And Plan: 1.Acute kidney injury, over volume with respiratory distress, mostly secondary to hepatorenal anuric . We going to arrange for the patient to initiate renal replacement therapy. 2.We will follow up serology, especially with the presence of anemia and thrombocytopenia with prote inuria. 3.Hypertension, currently marginal low blood pressure. We will utilize blood pressure for more ultr afiltration and we will continue Lasix drip. We will hold the Lasix for 1 week as patient is on dial ysis. We will start the patient on midodrine given that the patient has hepatorenal and we will start the patient on Sandostatin. SAMI/MAITE Voice ID: [id number] Report ID: [id number]
[2019-03-28] MEDS: PIPER/TAZO/NS 2.25gm 2.25 GM/50 ML BAG IVPB SCH (18:05)
[2019-03-28] MEDS ORDERED: ALBUMIN HUMAN 25% 100 ML IV ONE (18:49)
[2019-03-28] MEDS ORDERED: ALBUMIN HUMAN 25% 50 ML IV SCH (19:00)
[2019-03-29] MEDS: PIPER/TAZO/NS 2.25gm 2.25 GM/50 ML BAG IVPB SCH ×3 (01:08→18:07)
[2019-03-29] MEDS ORDERED: NA CHLORIDE 0.9% 100 ML ONE (01:21)
[2019-03-29] MEDS: IPRATROPIUM BROM 0.5MG/2.5ML NEB SCH ×4 (02:00→20:00)
[2019-03-29] MEDS: FENTANYL CITR 100 MCG/2 ML IV PRN ×4 (02:13→23:20)
[2019-03-29 04:21] LABS: Urine Protein/Creatinine Ratio 0.63 ratio (<0.15)
[2019-03-29] MEDS: OCTREOTIDE ACETATE 100 MCG/ML IV SCH ×3 (05:16→20:18)
[2019-03-29 05:38] LABS: Arterial Blood Carboxyhemoglob 1.6 % (0-1.5); Blood Gas Oxyhemoglobin 91.6 % (94-97); Blood O2 Saturation 93.6 % (92-98.5)
[2019-03-29 06:36] LABS: Albumin 2.7 g/dL (3.4-5.0); Magnesium 2.1 mg/dL (1.8-2.4); Phosphorus 7.1 mg/dL (2.5-4.9); Potassium 4.9 mmol/L (3.5-5.1); Protein, Total 5.3 g/dL (6.4-8.2); Thyroid Stimulating Hormone 0.138 uIU/mL (0.360-3.740)
--- NOTE | 2019-03-29 07:52 | P.PN ---
Subjective Date of Service: 03/29/19 Chief Complaint: Respiratory failure Patient's condition is stable he was dialyzed yesterday unresponsive vital signs stable is not on any sedation Review of Systems is unable to be obtained Physical Examination - Vital Signs Temperature: 97.1 F Blood Pressure: 118/63 Pulse: 93 Respirations: 16 Pulse Ox (%): 100 - Physical Exam General: Unresponsive Neck: Supple Respiratory: Clear to auscultation bilaterally Cardiovascular: Normal S1 S2, Edema (Gross anasarca the genital edema) Assessment & Plan - Problems (Diagnosis) (1) Respiratory failure Current Visit: Yes Status: Acute Plan: Patient is 44 years of age admitted with respiratory failure worsening renal function status post dialysis oxygenation satisfactory is currently on 50% oxygen still has some acidosis most likely respiratory chemistries creatinine is still 3.79 need to check his ammonia level reduce PEEP to 10 cm chest x-ray shows some improvement start tube feeds so far cultures are negative Dc vancomycin continue with Zosyn will also need lactulose there is no evidence of active GI bleed Qualifiers: Chronicity: acute on chronic Respiratory failure complication: hypoxia and hypercapnia Qualified Code(s): J96.21 - Acute and chronic respiratory failure with hypoxia; J96.22 - Acute and chronic respiratory failure with hypercapnia
[2019-03-29] MEDS: MIDODRINE HCL 5 MG TABLET PO SCH ×3 (09:00→20:18)
[2019-03-29] MEDS: LACTULOSE 20 GM/30 ML UCUP PO SCH ×3 (09:00→20:18)
[2019-03-29] MEDS: LORazepam 2 MG/ML VIAL IV PRN ×2 (09:16→19:45)
[2019-03-29] MEDS: THIAMINE 200 MG/2 ML INJ IVP SCH (09:16)
[2019-03-29] MEDS: PANTOPRAZOLE 40 MG INJ IVP SCH (09:16)
[2019-03-29 09:43] LABS: Rheumatoid Factor POS (NEG); Rheumatoid Factor Titer 1:1 (8 RF IU/mL)
[2019-03-29 10:44] LABS: Arterial Blood Carboxyhemoglob 1.7 % (0-1.5); Blood Gas Oxyhemoglobin 86.2 % (94-97); Blood O2 Saturation 88.5 % (92-98.5)
[2019-03-29 10:52] LABS: Absolute Lymphocytes (CBC) 0.2 K/uL (0.7-4.9); Basophils % 0.3 % (0-1.3); Hematocrit 21.2 % (39.6-49.0); Lymphocytes % 1.6 % (15.3-44.8); MPV 9.3 fL (7.6-11.3)
[2019-03-29 10:59] LABS: Platelet Estimate DECR; Urine White Blood Cell Casts OK
[2019-03-29 11:01] LABS: Anisocytosis 2+; Blood Morphology Comment NOTED (NOT SEEN); Elliptocytes 1+; Poikilocytosis 1+
[2019-03-29 11:02] LABS: Toxic Granulation 2+
[2019-03-29 11:08] LABS: Protime INR 2.08
--- NOTE | 2019-03-29 11:13 | PN ---
Date of Progress Note: 03/29/2019 Subjective: The patient was admitted with anasarca, sepsis. The patient had developed hepatorenal a nuric. The patient has developed also respiratory failure, intubated. The patient did undergo dialy sis yesterday. We managed to remove 1400, scheduled for dialysis today. Physical Examination: General: The patient is still sedated on vent. Vital Signs: Blood pressure 116/60, pulse of 97. Chest: Crackles bilateral. Heart: S1, S2. Regular. Abdomen: Soft, distended, ascites. Extremities: +3 edema. Laboratory Data: WBC 17.8, hemoglobin and hematocrit of 7.5 and 22.9, platelet of 78. Sodium of 141 , potassium 4.9, bicarb 24, BUN 50, creatinine 3.7, calcium 8, phos of 7.1, magnesium of 2.1. SPEP i s still pending. Albumin 2.7, PTH of 88, PC ratio 0.6. Serology still pending. Current Medications: The patient on include; Zosyn 2.25 q.8, midodrine 5 mg t.i.d., albumin p.r.n., heparin, lorazepam, haloperidol, propofol, lactulose, pantoprazole, Sandostatin q.8, thiamine. The p atient again anuric. Assessment And Plan: 1.Acute kidney injury secondary to hepatorenal over volume is still anuric. I am going to go ahead and arrange for dialysis today. Patient can be dialyzed for 2.5 hours with low blood flow and with l ow temperature. We will place the patient on sodium module to try to challenge the patient and we wi ll follow up. The patient is going to be dialyzed on a daily basis until we establish better volume control. 2.Anemia secondary to gastrointestinal loss/chronic kidney disease. I am going to start the patient on Epogen and we will follow up the patient. 3.Hepatorenal, as above. 4.Hepatic encephalopathy, as above. Continue lactulose. 5.Patient mostly going to need LTAC placement as of his multiple comorbid conditions. Case discussed with the staff, agreed on the plan. FELICE Voice ID: [id number] Report ID: [id number]
--- NOTE | 2019-03-29 12:36 | RAD REPORT ---
EXAM DESCRIPTION: RAD - Abdomen 1 View (KUB) - 03/29/2019 8:23 am CLINICAL HISTORY: Dobhoff tube placement Pain COMPARISON: No comparisons FINDINGS: Tip of the enteric tube is in the stomach.
--- NOTE | 2019-03-29 12:39 | RAD REPORT ---
EXAM DESCRIPTION: RAD - Chest Single View - 03/29/2019 6:39 am CLINICAL HISTORY: Respiratory failure Chest pain. COMPARISON: Chest Single View dated 03/28/2019; Chest Single View dated 03/28/2019; Chest Single View dated 03/28/2019; Chest Single View dated 03/26/2019 FINDINGS: Portable technique limits examination quality. Tip of the ET tube is well above the popeye. Moderate bilateral pulmonary opacities are again noted, slightly improved since comparative study. Left-sided central venous catheter is unchanged in positio n.
--- NOTE | 2019-03-29 13:32 | P.PN ---
Subjective Date of Service: 03/29/19 Chief Complaint: Respiratory failure Patient seen and examined at bedside. No family at bedside. Chart reviewed and case discussed with nursing staff. Patient currently intubated and sedated. This morning, patient continues to be sedated and intubated. Number dialysis catheter placed yesterday. Patient is now status post dialysis x1 Review of Systems 10-point ROS is otherwise unremarkable Physical Examination - Vital Signs Temperature: 97.1 F Blood Pressure: 116/67 Pulse: 101 Respirations: 16 Pulse Ox (%): 95 - Physical Exam General: Other (Intubated and sedated) Respiratory: Crackles/rales Cardiovascular: Edema (Generalized) Gastrointestinal: Distended, Ascites (Improved) Musculoskeletal: Swelling Neurological: Other External genitalia: Edema (Scrotal edema) Assessment And Plan - Current Problems (Diagnosis) (1) Sepsis Current Visit: Yes Status: Acute (2) Edema due to hypoalbuminemia Current Visit: No Status: Acute (3) Alcoholic cirrhosis of liver Current Visit: No Status: Acute (4) Anasarca Current Visit: No Status: Acute (5) Alcohol abuse Current Visit: Yes Status: Acute (6) Ascites Current Visit: No Status: Acute (7) Acute kidney injury Current Visit: Yes Status: Acute (8) Acute neutrophilia Current Visit: Yes Status: Acute (9) Hypoglycemia Current Visit: Yes Status: Acute (10) Anemia Current Visit: Yes Status: Acute Qualifiers: Anemia type: unspecified type Qualified Code(s): D64.9 - Anemia, unspecified (11) Acute respiratory failure Current Visit: Yes Status: Acute Plan: Requiring intubation Qualifiers: Respiratory failure complication: hypoxia and hypercapnia Qualified Code(s) : J96.01 - Acute respiratory failure with hypoxia; J96.02 - Acute respiratory failure with hypercapnia (12) Drug abuse Current Visit: Yes Status: Acute - Plan Patient in the ICU ,required intubation. Pulmonary consulted, recommendations appreciated. Currently intubated and sedated. Continue vent management. Continue sedation. Patient with no urine output, worsening MARIAH. Nephrology on board. Patient is status post dialysis catheter placement by . He is status post dialysis x1. Pending another session of dialysis today. Lasix and albumin drip discontinued. Continue broad IV antibiotics with vancomycin and zosyn. Monitor labs Overall, very poor prognosis. Family meeting scheduled tomorrow morning at 11. Disposition: Continue to monitor in the ICU. Will need to discuss with family regarding goals of care and furhter steps.
[2019-03-29] MEDS ORDERED: NEPRO 1,000 ML BOT FT SCH (14:00)
[2019-03-29] MEDS: EPOETIN ALFA 10,000 UNIT/ML VIAL IV SCH (15:05)
[2019-03-29] MEDS ORDERED: ETOMIDATE 20 MG/10 ML VIAL IV ONE (16:58)
[2019-03-29] MEDS ORDERED: SUCCINYLCHOLINE 20 MG/ML (10 ML) IV ONE (16:58)
[2019-03-30] MEDS: PIPER/TAZO/NS 2.25gm 2.25 GM/50 ML BAG IVPB SCH ×3 (00:04→17:10)
[2019-03-30] MEDS: IPRATROPIUM BROM 0.5MG/2.5ML NEB SCH ×4 (02:00→20:00)
[2019-03-30] MEDS: LORazepam 2 MG/ML VIAL IV PRN (02:15)
[2019-03-30] MEDS: FENTANYL CITR 100 MCG/2 ML IV PRN ×3 (05:04→21:45)
[2019-03-30] MEDS: OCTREOTIDE ACETATE 100 MCG/ML IV SCH ×3 (05:04→21:45)
[2019-03-30 05:09] LABS: Absolute Lymphocytes (CBC) 0.3 K/uL (0.7-4.9); Basophils % 0.2 % (0-1.3); Lymphocytes % 1.8 % (15.3-44.8); MPV 8.8 fL (7.6-11.3); RBC Red Blood Cell Count 2.94 M/uL (4.33-5.43)
[2019-03-30 05:31] LABS: Albumin 2.4 g/dL (3.4-5.0); Magnesium 2.1 mg/dL (1.8-2.4); Phosphorus 5.9 mg/dL (2.5-4.9); Potassium 4.7 mmol/L (3.5-5.1)
[2019-03-30 05:56] LABS: Arterial Blood Carboxyhemoglob 1.8 % (0-1.5); Blood Gas Oxyhemoglobin 90.8 % (94-97)
[2019-03-30] MEDS: MIDAZOLAM HCL 2 MG/2 ML INJ IV PRN ×3 (06:33→23:36)
--- NOTE | 2019-03-30 08:06 | RAD REPORT ---
EXAM DESCRIPTION: Adolfo Single View03/30/2019 6:55 am CLINICAL HISTORY: Shortness of breath COMPARISON: March 29, 2019 FINDINGS: Extensive bilateral pulmonary opacities mildly worsened. Endotracheal tube in good position. NG tube within the stomach. IMPRESSION: Mild worsening in extensive bilateral alveolar opacities
--- NOTE | 2019-03-30 08:31 | P.PN ---
Subjective Date of Service: 03/30/19 Chief Complaint: Respiratory failure Patient is unresponsive still on a ventilator has dobhof Review of Systems is unable to be obtained Physical Examination - Vital Signs Temperature: 98.1 F Blood Pressure: 116/62 Pulse: 111 Respirations: 16 Pulse Ox (%): 97 - Physical Exam General: Comatose Respiratory: Clear to auscultation bilaterally Cardiovascular: Normal S1 S2, Edema (Gross anasarca) Assessment & Plan - Problems (Diagnosis) (1) Respiratory failure Current Visit: Yes Status: Acute Plan: Patient is in respiratory failure on a ventilator coma toes unresponsive hemodynamically stable he is not on any vasopressors blood gas pH 7.31 is still little acidotic most likely respiratory patient's white count is elevated was transfused 2 units of red blood cells currently on lactulose will need an ammonia level CT of the head blood culture showed Gram negative rods patient is on Zosyn patient has extensive bilateral infiltrates possible ARDS and hepatorenal syndrome currently undergoing dialysis prognosis very poor patient is on midodrine and octreotide 60% FiO2 PEEP of 10 Qualifiers: Chronicity: acute on chronic Respiratory failure complication: hypoxia and hypercapnia Qualified Code(s): J96.21 - Acute and chronic respiratory failure with hypoxia; J96.22 - Acute and chronic respiratory failure with hypercapnia
[2019-03-30] MEDS: PANTOPRAZOLE 40 MG INJ IVP SCH (09:12)
[2019-03-30] MEDS: THIAMINE 200 MG/2 ML INJ IVP SCH (09:12)
[2019-03-30] MEDS: LACTULOSE 20 GM/30 ML UCUP PO SCH ×2 (09:12→21:45)
[2019-03-30] MEDS: MIDODRINE HCL 5 MG TABLET PO SCH ×3 (09:12→21:45)
[2019-03-30] MEDS: EPOETIN ALFA 10,000 UNIT/ML VIAL IV SCH (09:13)
[2019-03-30] MEDS ORDERED: VITAL HP 1,000 ML BOT RTH SCH (13:00)
--- NOTE | 2019-03-30 13:36 | RAD REPORT ---
EXAM DESCRIPTION: CT - Head Brain Wo Cont - 03/30/2019 1:27 pm CLINICAL HISTORY: Alteration of awareness/confusion COMPARISON: None TECHNIQUE: Computed axial tomography of the head was obtained. IV contrast was not requested. All CT scans are performed using dose optimization technique as appropriate and may include automated exposure control or mA/KV adjustment according to patient size. FINDINGS: Some images are degraded by patient motion artifact An intracranial bleed is not seen . The ventricles are normal in caliber. No extra-axial fluid collection is noted. Fluid within the sinuses/ mastoids is not seen. IMPRESSION: Grossly normal unenhanced head CT. If patient's symptoms persist MRI of the brain would be recommended.
--- NOTE | 2019-03-30 17:04 | P.PN ---
Subjective Date of Service: 03/30/19 Chief Complaint: Respiratory failure Patient seen and examined at bedside. multiple family members at bedside. Chart reviewed and case discussed with nursing staff. Patient currently intubated and intermittently sedated. Not following commands at this time. S/p dialysis catheter placement. Patient is now status post dialysis Review of Systems 10-point ROS is otherwise unremarkable Physical Examination - Vital Signs Temperature: 98.7 F Blood Pressure: 141/85 Pulse: 115 Respirations: 16 Pulse Ox (%): 95 - Physical Exam General: Other (intuabted, unable to follow commands; arouses slightly to discomfort ) HEENT: Atraumatic, PERRLA, EOMI Neck: Supple, JVD not distended Respiratory: Diminished Cardiovascular: Normal S1 S2, Edema (2+ generalized edema, waist down), Irregular heart rate/rhythm Gastrointestinal: Ascites Musculoskeletal: No tenderness Integumentary: No rashes Assessment And Plan - Current Problems (Diagnosis) (1) Sepsis Current Visit: Yes Status: Acute (2) Edema due to hypoalbuminemia Current Visit: No Status: Acute (3) Alcoholic cirrhosis of liver Current Visit: No Status: Acute (4) Anasarca Current Visit: No Status: Acute (5) Alcohol abuse Current Visit: Yes Status: Acute (6) Ascites Current Visit: No Status: Acute (7) Acute kidney injury Current Visit: Yes Status: Acute (8) Acute neutrophilia Current Visit: Yes Status: Acute (9) Hypoglycemia Current Visit: Yes Status: Acute (10) Anemia Current Visit: Yes Status: Acute Qualifiers: Anemia type: unspecified type Qualified Code(s): D64.9 - Anemia, unspecified (11) Acute respiratory failure Current Visit: Yes Status: Acute Plan: Requiring intubation Qualifiers: Respiratory failure complication: hypoxia and hypercapnia Qualified Code(s) : J96.01 - Acute respiratory failure with hypoxia; J96.02 - Acute respiratory failure with hypercapnia (12) Drug abuse Current Visit: Yes Status: Acute - Plan Patient in the ICU ,currently intubated and intermittently sedated. Pulmonary consulted, recommendations appreciated. Continue vent management. Continue sedation. Patient with slightly increasing urine output and MARIAH. Nephrology on board. Patient is status post dialysis catheter placement by . He is status post dialysis x2. Continue dialysis per nephrology. Continue broad IV antibiotics CT head ordered, pending Family meeting: updated family members on status and treatment plan. Patient may benefit from LTAC placement for [facility] vent management. SW consulted. Family is on board with the plan and were provided with a list of LTACs. THey will update us on their choice. Overall, very poor prognosis. Disposition: Continue to monitor in the ICU. SW on board for LTAC placement.
--- NOTE | 2019-03-30 21:33 | PN ---
Date of Progress Note: 03/30/2019 Chief Complaint: Anasarca sepsis, acute kidney injury. History Of Present Illness: Patient developed hepatorenal syndrome with anuria complicated by acute tubular necrosis. Patient is on dialysis. Patient remains fluid overloaded and on pressors. Patient is receiving dialysis to control fluid overload. Review of Systems: Unobtainable. Patient is intubated and unresponsive. Physical Examination: Lungs: Diminished breath sounds at bases. Heart: S1, S2. Abdomen: Soft and benign. Extremities: Edema 3+. Laboratory Data: WBC 17.8, sodium 141, potassium 4.9, calcium 8.0, creatinine 3.7, BUN 7, prealbumin 2.7. Impression And Plan: 1.Acute kidney injury secondary to hepatorenal syndrome with volume overload. Patient is anuric. P atient will continue dialysis. Next dialysis will be scheduled for tomorrow. 2.Anemia secondary to gastrointestinal blood loss as well as kidney insufficiency with chronic kidne y disease. Patient will continue Epogen. 3.Hepatorenal syndrome complicated by ATN. Continue dialysis. 4.Sepsis, septic shock. Continue pressors and zosyn, now with broad-spectrum coverage monitor bacte remia with blood cultures. EB/MODL Voice ID: [id number] Report ID: [id number]
[2019-03-30 21:51] LABS: Absolute Lymphocytes (CBC) 0.3 K/uL (0.7-4.9); Basophils % 0.2 % (0-1.3); Hematocrit 29.4 % (39.6-49.0); Lymphocytes % 1.5 % (15.3-44.8); RBC Red Blood Cell Count 3.02 M/uL (4.33-5.43)
[2019-03-30 22:28] LABS: Blood Morphology Comment NOT SEEN (NOT SEEN); Platelet Estimate DECR; Toxic Granulation 1+; Urine White Blood Cell Casts OK
[2019-03-31] MEDS: PIPER/TAZO/NS 2.25gm 2.25 GM/50 ML BAG IVPB SCH ×3 (00:38→18:04)
[2019-03-31] MEDS: LORazepam 2 MG/ML VIAL IV PRN ×4 (00:56→22:05)
[2019-03-31] MEDS: IPRATROPIUM BROM 0.5MG/2.5ML NEB SCH ×4 (02:00→19:50)
[2019-03-31 04:20] LABS: HBsAG Nonreactive (Nonreactive)
[2019-03-31 05:38] LABS: Hematocrit 28.6 % (39.6-49.0); MPV 8.7 fL (7.6-11.3); RBC Red Blood Cell Count 2.99 M/uL (4.33-5.43)
[2019-03-31 05:39] LABS: Albumin 2.3 g/dL (3.4-5.0); Phosphorus 5.7 mg/dL (2.5-4.9); Potassium 4.2 mmol/L (3.5-5.1)
[2019-03-31] MEDS: OCTREOTIDE ACETATE 100 MCG/ML IV SCH ×3 (05:59→21:30)
[2019-03-31 06:22] LABS: Blood Morphology Comment NOT SEEN (NOT SEEN); Platelet Estimate DECR; Toxic Granulation PRESENT
--- NOTE | 2019-03-31 07:37 | P.PN ---
Subjective Date of Service: 03/31/19 Chief Complaint: Respiratory failure with ARDS in renal failure Patient is unresponsive CT of the head was nondiagnostic ammonia levels elevated he still has extensive bilateral changes also now thrombocytopenic Review of Systems is unable to be obtained Physical Examination - Vital Signs Temperature: 97.7 F Blood Pressure: 126/73 Pulse: 110 Respirations: 20 Pulse Ox (%): 95 - Physical Exam General: Comatose Neck: Supple Respiratory: Clear to auscultation bilaterally Cardiovascular: Normal S1 S2, Edema (Still has gross anasarca) - Studies Microbiology Data (last 24 hrs): 03/26/19 10:46 Blood - Blood Aerobic Blood Culture - Final 03/26/19 10:46 Blood - Blood Gram Stain - Final 03/26/19 10:46 Blood - Blood Anaerobic Blood Culture - Final No growth in 5 days. Assessment & Plan - Problems (Diagnosis) (1) Respiratory failure Current Visit: Yes Status: Acute Plan: Patient now has ARDS with the renal failure suspect hepatorenal syndrome so far cultures are negative patient is on assist control FiO2 50% PEEP of 15 will decrease the PEEP to 10 titrate sat to 90% Qualifiers: Chronicity: acute on chronic Respiratory failure complication: hypoxia and hypercapnia Qualified Code(s): J96.21 - Acute and chronic respiratory failure with hypoxia; J96.22 - Acute and chronic respiratory failure with hypercapnia
--- NOTE | 2019-03-31 08:47 | RAD REPORT ---
EXAM DESCRIPTION: RAD - Chest Single View - 03/31/2019 8:25 am CLINICAL HISTORY: Respiratory failure Chest pain. COMPARISON: Chest Single View dated 03/30/2019; Abdomen 1 View (KUB) dated 03/29/2019; Chest Single Vi ew dated 03/29/2019; Chest Single View dated 03/28/2019 FINDINGS: Portable technique limits examination quality. Extensive bilateral pulmonary opacities are noted, unchanged. Tip of the ET tube is above the popeye. Enteric tube enters the stomach. The heart is mildly prominent. Left-sided venous catheter tip in th e SVC. IMPRESSION: Stable chest since 03/30/2019 study.
[2019-03-31] MEDS: LACTULOSE 20 GM/30 ML UCUP PO SCH ×2 (08:52→21:30)
[2019-03-31] MEDS: PANTOPRAZOLE 40 MG INJ IVP SCH (08:52)
[2019-03-31] MEDS: MIDODRINE HCL 5 MG TABLET PO SCH ×3 (08:52→21:30)
[2019-03-31] MEDS: THIAMINE 200 MG/2 ML INJ IVP SCH (08:52)
[2019-03-31] MEDS: EPOETIN ALFA 10,000 UNIT/ML VIAL IV SCH (09:57)
[2019-03-31] MEDS ORDERED: FUROSEMIDE 40 MG/4 ML VIAL IV ONE (13:38)
[2019-03-31] MEDS ORDERED: FUROSEMIDE 40 MG in NA CHLORIDE 0.9% 50 ML IV ONE (14:00)
[2019-03-31 14:28] LABS: Arterial Blood Carboxyhemoglob 1.8 % (0-1.5); Blood Gas Oxyhemoglobin 88.6 % (94-97); Blood O2 Saturation 90.9 % (92-98.5)
[2019-03-31 14:50] LABS: HIV AG/AB 4TH GEN Non-reactive (Non-reactive)
--- NOTE | 2019-03-31 15:03 | PN ---
Date of Progress Note: 03/31/2019 Subjective: The patient is seen and examined. Chart reviewed and case discussed with RN. Shey slaughter h family on the phone. The patient does open eyes spontaneously and moving his head around, however, does not follow any commands. Medications: List reviewed. Physical Examination: Vital Signs: Temperature 98, heart rate 114, blood pressure 135/69, respirations 20, O2 93% via ET t ube, 60% FiO2. General: Drowsy but awake. Opens eyes spontaneously. Does not follow any commands, intubated, benjie swati, ill-appearing male. CV: S1, S2. Sinus tachycardia. Peripheral pulses weak. Respiratory: Diminished breath sounds, crackles heard. Gastrointestinal: Abdomen is soft, distended. Positive bowel sounds. No rigidity. Extremities: No clubbing or cyanosis. The patient has 3+ edema of the lower extremities bilaterally . Neuro: Intubated and sedated. Will open eyes spontaneously. Does not follow any commands. Laboratory Data: Sodium 142, potassium 4.2 chloride 109, CO2 25, BUN 57, creatinine 3.3, glucose 72, calcium 8.1, phosphorus 5.7, ammonia 77, albumin 2.3. WBC is 18.3, hemoglobin and hematocrit are 9. 6 and 28.6, platelets 251, neutrophils not present, 2% bands. Blood cultures, no growth to date, fin al. Urine culture also no growth. Sputum cultures 1+ yeast. Chest x-ray personally reviewed shows extensive bilateral pulmonary opacities are unchanged. ET tube above popeye. Enteric tube enters th e stomach, heart mildly prominent, left-sided venous catheter tip in SVC. Stable chest since 03/30 [facility]. Assessment: A 44-year-old male with: 1.Sepsis unclear etiology. Cultures are negative to date. 2.Acute respiratory failure with hypoxia, currently on ventilator. Pulmonology on board. 3.Acute metabolic encephalopathy. Consider neuro evaluation. Head CT scan was negative for any acu te hemorrhage or mass effect. May need EEG, possible neuro evaluation. 4.Anasarca due to alcoholic liver cirrhosis and hypoalbuminemia. 5.Alcoholic liver cirrhosis. We will continue to monitor fluid intake and output. 6.Hepatorenal syndrome. The patient has been started on dialysis. We will continue to monitor and discuss further with Nephrology. 7.History of alcohol abuse. 8.Acute kidney injury, currently on dialysis. 9.Hypoglycemia. 10.Anemia likely anemia of chronic disease continue to monitor H and H. 11.History of drug abuse. The patient apparently was on methamphetamines. 12.Leukocytosis with neutrophilia. 13.Hyperphosphatemia. We will continue dialysis. 14.Thrombocytopenia secondary to his liver disease. Plan: We will discuss further with family. We will need LTAC placement. AYAN Voice ID: [id number] Report ID: [id number]
--- NOTE | 2019-03-31 18:34 | PN ---
Date of Progress Note: 03/31/2019 Subjective: Patient admitted with hepatorenal acute kidney injury, anuric, currently oliguric. Chichi ent been on dialysis on a daily basis. Patient received dialysis today. We managed to remove around 3300. Physical Examination: Vital Signs: When I saw the patient blood pressure 125/61, pulse of 111. Patient had urine output o f 300. Chest: Decreased entry bilateral. Heart: S1, S2. Systolic murmur. Abdomen: Distended. Extremities: +4 edema. Laboratory Data: WBC 18.3, H and H 9.6/28.6, platelet of 51. Sodium 142, potassium 4.2, bicarb 25, BUN 57, creatinine 3.3, calcium 8.1, phos 5.7. Ammonia level is 77, albumin 2.3. PTH of 88. SPEP i s still pending. Serology still pending. Rheumatoid factor positive, hep C positive, hep B service and core antibody was negative. Current Medications: The patient on its include; 1.Zosyn. 2.Midodrine 5 mg t.i.d. 3.Epogen. 4.Lactulose. 5.Pantoprazole. Assessment And Plan: 1.Acute kidney injury secondary to hepatorenal, still over volume with severe anasarca. I am going to go ahead and do another session of dialysis tomorrow. I am going to do sequential trying to estab enzo better volume control. From now on we are going to be doing 1 day sequential, 1 day regular boni lysis, until we establish better volume control and we will follow up the patient. 2.Hepatic encephalopathy. Continue current treatment. Follow up with primary. 3.Gastrointestinal bleed. Continue p.r.n. transfusion. 4.Anasarca, secondary to cirrhosis and renal failure. We will start Lasix and continue daily dialysis as above. Patient overall poor prognosis. We will follow up with the primary. SAMI/MAITE Voice ID: [id number] Report ID: [id number]
--- NOTE | 2019-03-31 20:25 | CON ---
Reason For Consultation: Consultation called because of altered mental status. History Of Present Illness: Mr. Frankel is a 44-year-old patient with alcoholic and multidrug use rel ated liver cirrhosis, who comes in [facility] on 26 of March with worsening bilateral lower extremity massive edema up to the scrotum and abdomen. He developed severe anemia and was being tra nsfused with blood when he developed flash pulmonary edema and required immediate intubation. His ar terial blood right after intubation was 7.19 with pCO2 of 50.4. Since that time, the patient has not had responses to verbal stimulation, but would have general responses to noxious stimulation. He reid s had an ammonia level elevated to 77 with a creatinine elevated at 3.79. The head CT scan shows no acute ischemic or hemorrhagic change. There is no evidence of significant edema and no loss of wayne- white distinction. Past Medical History: As indicated above. Allergies: NO KNOWN DRUG ALLERGIES. Family History: Noncontributory. Social History: As indicated, he abused alcohol and multiple drugs including amphetamines. His toxi cology screen was positive for opiates along with amphetamine use. Review of Systems: Not possible as the patient is intubated and not responsive verbally. Medications: Other medications include Zosyn, Protonix, octreotide, midodrine, Versed, Procrit, Hald ol. Physical Examination: Vital Signs: Blood pressure 160/73, pulse of 120, respiratory rate up to 26, temperature 100.3. Mr. Frankel is resting in bed, intubated. He does have some spontaneous arm and head movement. No sp ontaneous leg movement observed. He will have an EEG later today. He does not have a focal appearan ce to his face in terms of any asymmetry. Unable to assess fully movement of his arms. He has massi ve edema in his lower and upper extremities and his abdominal region. His tone is normal in the uppe r and lower extremities and unable to fully assess his reflexes given his massive tone, cannot assess sensation and coordination, and gait. Laboratory Studies: Current white blood cell count 18.5 with 94.7 neutrophils, hemoglobin up to 9.4, lowest of 6.7 three days ago. His current creatinine is 3.79. AST elevated to 44. Total bilirubin elevated to 2.0. Phosphorus elevated at 7.1. Calcium low at 8.0. Most recent chest x-ray done ear lier today shows extensive bilateral pulmonary opacities with significant edema. Chest CT shows mild worsening of extensive bilateral alveolar opacities and head CT scan done yesterday shows grossly no rmal unenhanced CT scan of the brain. Assessment: Mr. Frankel is a 44-year-old patient with multifactorial encephalopathy. He has chronic hepatic cirrhosis, multi-drug abuse, and elevated ammonia with hepatic encephalopathy. Also, he has hypoxic encephalopathy, had a pH down to 7.15 with elevated pCO2. In addition, he has chronic flash pulmonary edema. He has kidney failure as well. He has a poor prognosis for excellent recovery, but he may do well given his young age. Plan: 1.We will follow up on EEG. 2.We will consider repeat head CT scan to determine if the hypoxic episode the patient experienced w ill result in cerebral ischemia with loss of wayne-white junction, which may also be helpful for progn osis. 3.The patient will continue with current level of supportive care as per primary team. Please note, brain MRI may be helpful if the patient is able to withstand it. JORDI/MAITE Voice ID: [id number] Report ID: [id number]
[2019-03-31] MEDS: HALOPERIDOL LACT 5 MG/ML INJ IV PRN (23:23)
[2019-04-01] MEDS: MIDAZOLAM HCL 2 MG/2 ML INJ IV PRN ×2 (01:31→14:07)
[2019-04-01] MEDS: PIPER/TAZO/NS 2.25gm 2.25 GM/50 ML BAG IVPB SCH ×3 (01:31→17:18)
[2019-04-01] MEDS: IPRATROPIUM BROM 0.5MG/2.5ML NEB SCH ×4 (01:50→20:00)
[2019-04-01] MEDS: FENTANYL CITR 100 MCG/2 ML IV PRN ×2 (02:21→12:30)
[2019-04-01] MEDS: OCTREOTIDE ACETATE 100 MCG/ML IV SCH ×3 (05:41→20:42)
[2019-04-01 05:44] LABS: Albumin 2.1 g/dL (3.4-5.0); Phosphorus 4.6 mg/dL (2.5-4.9)
--- NOTE | 2019-04-01 07:32 | RAD REPORT ---
EXAM DESCRIPTION: RAD - Chest Single View - 04/01/2019 6:44 am CLINICAL HISTORY: Respiratory failure, intubation COMPARISON: March 31 TECHNIQUE: AP portable chest image was obtained 0640 hours . FINDINGS: Extensive airspace opacification is present throughout the left lung field in the lower ri ght lung field. There is improved aeration in the right lung field. No progressive lung parenchymal p rocess. ET tube remains in good position. Feeding tube is well positioned in the stomach. Left-sided central venous access catheter remains in place. Heart size is normal. No pneumothorax or enlarging pleural e ffusion. IMPRESSION: Improvement in the aeration of the right lung field since prior day imaging. Extensive airspace disease remains in the left lung field.
[2019-04-01 08:06] LABS: Absolute Lymphocytes (CBC) 0.8 K/uL (0.7-4.9); Basophils % 0.6 % (0-1.3); Hematocrit 29.5 % (39.6-49.0); Lymphocytes % 3.9 % (15.3-44.8); MPV 8.2 fL (7.6-11.3); RBC Red Blood Cell Count 3.07 M/uL (4.33-5.43)
[2019-04-01 08:48] LABS: Anisocytosis 1+; Blood Morphology Comment NOTED (NOT SEEN); Dohle Bodies PRESENT; Platelet Estimate DECR; Polychromasia 1+; Toxic Granulation 1+
[2019-04-01] MEDS: EPOETIN ALFA 10,000 UNIT/ML VIAL IV SCH (09:17)
[2019-04-01] MEDS: LACTULOSE 20 GM/30 ML UCUP PO SCH ×3 (10:01→20:42)
[2019-04-01] MEDS: THIAMINE 200 MG/2 ML INJ IVP SCH (10:01)
[2019-04-01] MEDS: PANTOPRAZOLE 40 MG INJ IVP SCH (10:02)
[2019-04-01] MEDS: MIDODRINE HCL 5 MG TABLET PO SCH ×3 (10:02→21:05)
[2019-04-01] MEDS ORDERED: POLYVINYL ALCOHOL 1.4% 15 ML EACH EYE PRN (10:57)
--- NOTE | 2019-04-01 12:01 | P.PN ---
Subjective Date of Service: 04/01/19 Chief Complaint: Respiratory failure with ARDS in renal failure No change patient is unresponsive in coma gross anasarca Review of Systems is unable to be obtained Physical Examination - Vital Signs Temperature: 98.9 F Blood Pressure: 129/84 Pulse: 105 Respirations: 21 Pulse Ox (%): 94 - Physical Exam General: Comatose Neck: Supple Respiratory: Clear to auscultation bilaterally Cardiovascular: Edema (Gross edema including genital) - Studies Microbiology Data (last 24 hrs): 03/26/19 10:18 Blood - Blood Aerobic Blood Culture - Final No growth in 5 days. 03/26/19 10:18 Blood - Blood Anaerobic Blood Culture - Final No growth in 5 days. 03/26/19 10:46 Blood - Blood Aerobic Blood Culture - Final 03/26/19 10:46 Blood - Blood Gram Stain - Final 03/26/19 10:46 Blood - Blood Anaerobic Blood Culture - Final No growth in 5 days. Assessment & Plan - Problems (Diagnosis) (1) Respiratory failure Current Visit: Yes Status: Acute Plan: Patient is terminally ill unresponsive to conventional treatment most likely he has hepatorenal syndrome he still has ARDS acute renal failure cultures negative prognosis very poor recommend withdrawal of care Qualifiers: Chronicity: acute on chronic Respiratory failure complication: hypoxia and hypercapnia Qualified Code(s): J96.21 - Acute and chronic respiratory failure with hypoxia; J96.22 - Acute and chronic respiratory failure with hypercapnia
[2019-04-01] MEDS: FUROSEMIDE 40 MG in NA CHLORIDE 0.9% 50 ML IV SCH ×2 (13:54→20:44)
[2019-04-01] MEDS ORDERED: FUROSEMIDE 40 MG/4 ML VIAL IV SCH (14:00)
--- NOTE | 2019-04-01 14:21 | EEG ---
CHART: [id number] TEST ID#: [id number] DATE OF STUDY: 03/31/2019 THE EEG WAS RECORDED PORTABLE IN THE ICU ON A 17 CHANNEL MACHINE. ELECTRODES WERE APPLIED IN THE USUAL MANNER USING THE INTERNATIONAL 10-20 SYSTEM. THE WAKING BACKGROUND RHYTHM IN THIS RECORD CONSISTS OF POORLY DEVELOPED AND POORLY ORGANIZED WAVES OF 1.5-3 HZ., IN A WIDE DISTRIBUTION WHICH DO NOT ATTENUATE NORMALLY WITH EYE OPENING. MODERATE VOLTAGE 4-6 HZ ACTIVITY IS EXPRESSED IN THE FRONTAL AND CENTRAL REGIONS. DIAPHASIC WAVES ARE EXPRESSED IN THE FRONTAL REGIONS THERE ARE NO FOCAL OR LATERALIZING FEATURES. NO EPILEPTIFORM ACTIVITY APPEARS. SLEEP DID NOT OCCUR. HYPERVENTILATION WAS NOT PERFORMED. PHOTIC STIMULATION WAS NOT PERFORMED. IMPRESSION: THIS IS A MODERATELY ABNORMAL EEG DUE TO A MODERATELY SLOW BACKGROUND AND FRONTAL DIAPHASIC WAVES. THESE FINDINGS ARE CONSISTENT WITH A MODERATE DIFFUSE BUT NON-SPECIFIC DISTURBANCE IN CEREBRAL ACTIVITY ON A TOXIC/METABOLIC VERSUS HYPOXIC/ ISCHEMIC BASIS.
--- NOTE | 2019-04-01 14:35 | RAD REPORT ---
EXAM DESCRIPTION: CT - Head Brain Wo Cont - 04/01/2019 2:25 pm CLINICAL HISTORY: Transient alteration of awareness COMPARISON: CT head March 30. TECHNIQUE: Axial 5 mm thick images of the head were obtained without IV contrast. All CT scans are performed using dose optimization technique as appropriate and may include automated exposure control or mA/KV adjustment according to patient size. FINDINGS: No intracranial hemorrhage, mass, edema or shift of mid-line structures. No acute infarcti on changes seen. No abnormal extra-axial fluid collections. Ventricles are normal. Physiologic calcif ications are present. Mastoid air cells are clear. Air-fluid level is present in the right maxillary sinus. No acute bony findings. IMPRESSION: Negative non-contrast CT head examination for acute finding No significant change to the intracranial findings since March 30 imaging. Right maxillary sinusitis.
--- NOTE | 2019-04-01 15:02 | PN ---
Date of Progress Note: 04/01/2019 Subjective: Patient seen and examined. Chart reviewed and case discussed with RN and Dr. Campbell. Patient's daughter at the bedside. Prognosis is very guarded and poor. I had a long discussion wit h daughter regarding his poor prognosis overall. She voiced understanding. All questions answered. Family meeting today at 6 p.m. Medications: List reviewed. Physical Examination: Vital Signs: Temperature 98.9, heart rate 104, blood pressure 121/61, respirations 16, O2 of 100% on 40% FiO2 via ET tube. General: Nonresponsive, has nonpurposeful movements, will open his eyes spontaneously. Does not res pond to commands. CV: S1, S2. Peripheral pulses present. Respiratory: Diminished breath sounds. Crackles heard. Patient is tachypneic. Gastrointestinal: Abdomen is distended. Hypoactive bowel sounds. Mild ascites. Extremities: Patient has diffuse anasarca of the upper and lower extremities. Skin: Patient has chronic venous stasis changes. Neuro: Opens eyes spontaneously. Moves all 4 extremities, however, no purposeful movement. Does no t follow any commands. Laboratory Data: Sodium 141, potassium 4, chloride 108, CO2 of 26, BUN 59, creatinine 3.03 glucose 1 08, calcium 7.8, phosphorus 4.6, ammonia 95, albumin 2.1, WBC 20, H and H 9.7, and 29.5, platelets 51 , neutrophils 90%, blood cultures no growth to date. Sputum culture 1+ yeast. Chest x-ray personall y reviewed shows improvement in aeration of the right lung field since prior to imaging. Extensive a irspace disease remains in the left lung field. Assessment And Plan: 1.Acute respiratory failure with hypoxia. Patient is still on ventilator support. Pulmonology on b oard patient difficult to wean, nonresponsive. 2.Multiorgan failure. Patient has kidney failure, currently on dialysis daily, respiratory failure, also has liver failure with cirrhosis. Overall has a very poor prognosis. 3.Sepsis, unclear etiology. Cultures so far are negative. 4.Acute metabolic encephalopathy. Appreciate Dr. Shetty's input. EEG has been done as well as he ad CT scan, which did not show any acute hemorrhage or mass effect. Dr. Shetty recommends repeat h ead CT scan to see if there are any changes. 5.Acute kidney injury, currently on dialysis, likely due to hepatorenal syndrome. 6.Liver cirrhosis secondary to alcohol and hepatitis C. Ammonia level is elevated. We will increas e dose of lactulose. 7.Anasarca due to cirrhosis, hypoalbuminemia. Continue pulling fluid with dialysis. 8.Hepatorenal syndrome. 9.History of alcohol abuse. 10.Polysubstance abuse. 11.Hypoglycemia, resolved. 12.Anemia of chronic disease. We will continue to monitor H and H. Patient has received transfusio n previously. 13.Hyperphosphatemia. 14.Thrombocytopenia, likely related to his liver disease. Overall, very poor prognosis. Pulmonolog y and Nephrology recommend withdrawal of care. I agree with their assessment. We will repeat head C T scan. I spoke with daughter, who wants to wait for the rest of the family members prior to making a decision. I spoke to the cousin yesterday who was wanting to proceed with LTAC placement. However , he is not the decision maker. Family meeting scheduled today for 6 p.m. /MAITE Voice ID: [id number] Report ID: [id number]
[2019-04-01 15:56] LABS: Hep C Virus RNA (PCR)log 5.33 log IU/mL
--- NOTE | 2019-04-01 16:53 | PN ---
Date of Progress Note: 04/01/2019 Subjective: The patient was admitted with hepatic encephalopathy, respiratory failure over volume anasarca developed acute kidney injury, anasarca secondary to hepatorenal. The patient was started on dialysis, been on dialysis on a daily basis since Saturday. Physical Examination: Vital Signs: When I saw the patient, the patient seen on dialysis, blood pressure 136/75, pulse of 88. Chest: Crackles bilateral. Heart: S1, S2. Systolic murmur. Abdomen: Ascites, anasarca. Extremities: +3 to 4 edema. Neuro: Patient on vent. Laboratory Data: Creatinine 3, GFR of 22. No hyperkalemia. WBC 20, hemoglobin and hematocrit 9.7 and 29.5, platelet of 51. Sodium 141, potassium 5.6, BUN 59, creatinine 3, calcium 7.8, phos 4.6. Current Medications: 1. Lactulose. 2. Lasix 40 daily. 3. Midodrine 5 mg t.i.d. 4. Albumin p.r.n. 5. Epogen. Assessment And Plan: Acute kidney injury secondary to hepatorenal, currently nonoliguric. I am going to go ahead and start the patient to increase his Lasix to b.i.d. and we will follow up the patient. Continue dialysis daily. I had long discussion with daughter by the bedside regarding overall poor prognosis for the patient given the multiorgan failure. Family still not decided about the final decision about the patient's care. Cirrhosis with encaphlopathy poor prognosis we will follow up with the primary. Continue current supportive care. Anasarca continue daily dialysis and lasix SAMI/AMITE Voice ID: [id number] Report ID: [id number] MTDD
[2019-04-02] MEDS: PIPER/TAZO/NS 2.25gm 2.25 GM/50 ML BAG IVPB SCH ×2 (00:17→09:00)
[2019-04-02] MEDS: IPRATROPIUM BROM 0.5MG/2.5ML NEB SCH ×4 (02:00→19:42)
[2019-04-02 05:05] LABS: Absolute Lymphocytes (CBC) 0.7 K/uL (0.7-4.9); Basophils % 0.3 % (0-1.3); Hematocrit 29.1 % (39.6-49.0); Lymphocytes % 4.2 % (15.3-44.8); MPV 8.4 fL (7.6-11.3); RBC Red Blood Cell Count 3.01 M/uL (4.33-5.43)
[2019-04-02 05:26] LABS: Albumin 1.9 g/dL (3.4-5.0); Phosphorus 5.1 mg/dL (2.5-4.9)
[2019-04-02] MEDS: OCTREOTIDE ACETATE 100 MCG/ML IV SCH ×3 (06:00→20:36)
[2019-04-02 06:34] LABS: Albumin, (SPE) 2.6 g/dL (3.8-4.8); Alpha-1-Globulins 0.3 g/dL (0.2-0.3); Alpha-2-Globulins 0.4 g/dL (0.5-0.9); INTERPRETATION REPORT
--- NOTE | 2019-04-02 07:35 | RAD REPORT ---
EXAM DESCRIPTION: RAD - Chest Single View - 04/02/2019 6:03 am CLINICAL HISTORY: Respiratory failure, intubation COMPARISON: April 01 TECHNIQUE: AP portable chest image was obtained 0555 hours . FINDINGS: Endotracheal tube and feeding tube positioning are stable. No new tube or line identified. Airspace opacification remains in the right lung base. Right lung volume is substantially reduced. Ri ght base has partially cleared. No new right lung field finding. Left lung field shows partial cleari ng of airspace opacities since prior day imaging. Heart size is mildly prominent but stable. No measurable pleural effusion and no pneumothorax. No ac creek bony abnormality seen. No acute aortic findings suspected. IMPRESSION: Partial clearing of bilateral airspace opacification since prior day imaging. Significan t alveolar edema or infiltrate remains. Stable positioning of ET tube and feeding tube.
[2019-04-02] MEDS: LORazepam 2 MG/ML VIAL IV PRN ×2 (08:03→19:26)
[2019-04-02] MEDS: ALBUTEROL 2.5 MG/3 ML NEB SOL NEB PRN ×2 (08:14→13:24)
--- NOTE | 2019-04-02 08:20 | P.PN ---
Subjective Date of Service: 04/02/19 Chief Complaint: Respiratory failure with ARDS in renal failure Patient is unresponsive coma toes gross anasarca Review of Systems is unable to be obtained Physical Examination - Vital Signs Temperature: 97.4 F Blood Pressure: 120/72 Pulse: 91 Respirations: 18 Pulse Ox (%): 100 - Physical Exam General: Comatose Respiratory: Clear to auscultation bilaterally Cardiovascular: Edema (Gross edema) Assessment & Plan - Problems (Diagnosis) (1) Respiratory failure Current Visit: Yes Status: Acute Plan: No change prognosis poor patient is still coma toes the EEG done seen by neurology patient hep C positive diffuse changes on the x-ray patient is a 35% oxygen prognosis is very poor most likely hepatorenal syndrome consider withdrawal of care patient is undergoing dialysis Qualifiers: Chronicity: acute on chronic Respiratory failure complication: hypoxia and hypercapnia Qualified Code(s): J96.21 - Acute and chronic respiratory failure with hypoxia; J96.22 - Acute and chronic respiratory failure with hypercapnia
[2019-04-02] MEDS: FUROSEMIDE 40 MG in NA CHLORIDE 0.9% 50 ML IV SCH ×2 (09:00→20:35)
[2019-04-02] MEDS: LACTULOSE 20 GM/30 ML UCUP PO SCH ×3 (09:00→20:36)
[2019-04-02] MEDS: PANTOPRAZOLE 40 MG INJ IVP SCH (09:00)
[2019-04-02] MEDS: MIDODRINE HCL 5 MG TABLET PO SCH ×3 (09:00→20:37)
[2019-04-02] MEDS: THIAMINE 200 MG/2 ML INJ IVP SCH (09:00)
[2019-04-02] MEDS: HALOPERIDOL LACT 5 MG/ML INJ IV PRN (09:52)
--- NOTE | 2019-04-02 11:30 | PN ---
Date of Progress Note: 04/02/2019 Subjective: Patient seen and examined. Chart reviewed and case discussed with RN and Dr. Campbell. Had a long family meeting yesterday including children who are the next of kin as well as sister's cousins and other various family members. Explained to them in detail the patient's poor prognosis and the fact that he has no meaningful responses when he moves. They understand that he is in multiorgan failure including kidneys, liver, lungs, and possibly anoxic brain injury as well. Family does not appear to be agreeable to withdrawal of care at this time. They wish to pursue further care stating that Mr. Frankel, the patient wanted everything to be done and wish to continue aggressive measures. The patient will likely need to be transferred to LTAC for further weaning. No meaningful change in the patient's condition this morning. Medications: List reviewed. Physical Examination: Vital Signs: Temperature 97.4, heart rate 91, blood pressure 120/72, respirations 18, O2 100% via ET tube, 35% FiO2. General: Nonresponsive, however, does open eyes spontaneously. Moves all 4 extremities. Does not follow any commands. CV: S1, S2. Peripheral pulses present, but weak. Respiratory: Diminished breath sounds. Rhonchi heard. Gastrointestinal: Abdomen is soft, distended, mild ascites. Positive bowel sounds. Extremities: No clubbing or cyanosis. The patient has diffuse anasarca. Neuro: Intubated, not sedated. Moves all 4 extremities. Opens eyes spontaneously. Does not follow any commands. Laboratory Data: Sodium 143, potassium 4, chloride 109 CO2 of 25, BUN 79, creatinine 3.22, glucose 94, calcium 7.8, phosphorus 5.1. WBC 17.6, hemoglobin and hematocrit 9.7 and 29.1, platelets 45, neutrophils 86%. Chest x-ray personally reviewed shows partial clearing of bilateral airspace opacification since prior day imaging, significant alveolar edema or infiltrate remains, stable positioning of ET tube and feeding tube. Head CT scan which was repeated yesterday showed negative noncontrast head CT examination for acute finding. No significant change to the intracranial finding since March 30, right maxillary sinusitis. Assessment: A 44-year-old male with: 1. Acute respiratory failure with hypoxia, unable to be weaned off ventilator support. Appreciate Pulmonology input. 2. Multiorgan failure including kidney failure, currently on dialysis, respiratory failure, on ventilator and liver failure with cirrhosis. Also EEG shows possible hypoxic brain injury. Overall very poor prognosis. 3. Sepsis may be related to pneumonia. Sputum cultures have been sent. The patient currently on Zosyn. Blood cultures have been negative, final. Chest x- ray does show possible infiltrate versus edema and with some clearing. 4. Acute metabolic encephalopathy, probable anoxic brain injury. Neuro evaluation has been completed. EEG also reviewed. EEG showed moderately abnormal EEG due to moderately slow background and frontal biphasic waves. Findings consistent with moderate diffuse, but nonspecific disturbance of cerebral activity on a toxic metabolic versus hypoxic ischemic basis. No meaningful response from the patient at this time. Repeat head CT scan did not show any changes. No edema or effacement. 5. Acute kidney injury, currently on dialysis due to hepatorenal syndrome. 6. Liver cirrhosis secondary to alcohol and hepatitis C. Ammonia levels improving. We will continue with increased dose of lactulose. 7. Anasarca secondary to cirrhosis, hypoalbuminemia. The patient has received albumin infusions. We will discuss with Nephrology about continuing albumin. 8. Hepatorenal syndrome. 9. History of alcohol abuse. 10. Polysubstance abuse. 11. Anemia of chronic disease. 12. Thrombocytopenia. Lovenox on hold. May be related to his liver disease. 13. Hyperphosphatemia. We will continue dialysis. Plan: Family at this time not wanting to withdraw care. They understand he has a very poor prognosis. If he is able to survive, which is highly unlikely, he will require complete care and will likely need to be in a nursing facility. They understand and wished to proceed with transfer to LTAC. /MAITE Voice ID: [id number] Report ID: [id number] ANDREE
[2019-04-02] MEDS: CEFEPIME/SWI 2gm 2 GM/20 ML SYR IV SCH (12:42)
[2019-04-02] MEDS ORDERED: EPOETIN ALFA 10,000 UNIT/ML VIAL IV SCH ×2 (14:45)
[2019-04-02] MEDS ORDERED: VITAL HP 1,000 ML BOT RTH SCH (16:40)
--- NOTE | 2019-04-02 19:51 | PN ---
Date of Progress Note: 04/02/2019 Subjective: Patient was admitted with anasarca, hepatorenal, required dialysis. Patient being on di alysis on a daily basis. This is day 6. Patient tolerating the dialysis very well. Still oliguric yesterday. We started the patient on Lasix, started making some urine, but still oliguric. Physical Examination: VITAL SIGNS: Blood pressure of 136/67. Again, patient on midodrine. CHEST: Crackles bilateral. HEART: S1, S2. Systolic murmur. ABDOMEN: Soft, nontender, better than before, still with ascites and under skin edema. Assessment And Plan: 1.Anasarca secondary to hepatorenal. Continue dialysis. 2.Hepatic encephalopathy. We will continue current supportive care. 3.Respiratory failure. Follow up with primary and Critical Care. FELICE Voice ID: [id number] Report ID: [id number]
[2019-04-02] MEDS: FENTANYL CITR 100 MCG/2 ML IV PRN (20:36)
[2019-04-02] MEDS ORDERED: CEFEPIME 2 GM VIAL IV SCH (21:00)
[2019-04-03] MEDS: IPRATROPIUM BROM 0.5MG/2.5ML NEB SCH ×2 (01:54→08:26)
[2019-04-03] MEDS: OCTREOTIDE ACETATE 100 MCG/ML IV SCH (05:49)
[2019-04-03 06:18] LABS: Absolute Lymphocytes (CBC) 0.7 K/uL (0.7-4.9); Basophils % 0.4 % (0-1.3); Hematocrit 30.1 % (39.6-49.0); MPV 8.3 fL (7.6-11.3); RBC Red Blood Cell Count 3.12 M/uL (4.33-5.43)
[2019-04-03 06:41] LABS: Albumin 1.9 g/dL (3.4-5.0); Magnesium 2.3 mg/dL (1.8-2.4); Potassium 3.5 mmol/L (3.5-5.1); Protein, Total 5.2 g/dL (6.4-8.2)
[2019-04-03 06:49] LABS: Bilirubin Total 10.1 mg/dL (0.2-1.0)
[2019-04-03] MEDS: LORazepam 2 MG/ML VIAL IV PRN (07:33)
[2019-04-03] MEDS: MIDODRINE HCL 5 MG TABLET PO SCH ×2 (09:00→14:00)
--- NOTE | 2019-04-03 09:14 | RAD REPORT ---
EXAM DESCRIPTION: Parvezt Single View04/03/2019 6:09 am CLINICAL HISTORY: Respiratory failure COMPARISON: April 02 FINDINGS: Endotracheal tube remains in good position. Extensive bilateral pulmonary opacities are without obvious change. Heart is normal size. IMPRESSION: Stable diffuse bilateral pulmonary opacities
--- NOTE | 2019-04-03 12:10 | PN ---
Date of Progress Note: 04/03/2019 Subjective: Patient seen and examined. Chart reviewed and case discussed with RN and Dr. Patrick. Patient family at the bedside and again had a long meeting with next of kin, the elder son, Kushal, as well as sisters, cousin, and other family members including daughters. The patient has not shown any clinical improvement. Has had some contractures according to the family. Patient was denied by [facility] for transfer, they did not feel that this patient would be able to be weaned off. Family understands the decision, they do not wish to pursue further LTAC options with [facility] or other facilities. An extensive talk regarding his prognosis. They have come to a consensus that they wish to keep the patient comfortable. They are interested in hospice care and withdrawal of care. They understand that hospice and withdrawal of care is terminal and the patient will likely succumb to his illness and from his complications including respiratory status and kidney failure among other multiorgan failure. Medications: List reviewed. Physical Examination: Vital Signs: Temperature 97.9, heart rate 96, respirations 24, blood pressure 137/72, O2 of 95% on 35% FiO2. General: Opens eyes spontaneously. Does move extremities, however, does not follow any commands. No tracking. CV: S1, S2. Peripheral pulses weak. Respiratory: Diminished breath sounds. Rhonchi and crackles present. Patient is tachypneic. Gastrointestinal: Abdomen is distended, mild ascites. Hypoactive bowel sounds. Extremities: Patient has diffuse anasarca. Neuro: Intubated, not continuously sedated. Opens eyes spontaneously. Moves extremities. Does not follow any commands. Laboratory Data: WBC 16.1, H and H 10.2 and 30.1, platelets 53, neutrophils 87% . Sodium 145, potassium 3.5, chloride 110, CO2 of 24, BUN 86, creatinine 2.92, glucose 84, calcium 7.8, total bilirubin 10.1. Chest x-ray shows extensive bilateral pulmonary opacities without obvious change. Assessment And Plan: A 44-year-old male with: 1. Acute respiratory failure with hypoxia, difficult to be weaned secondary to pulmonary edema resulting from liver cirrhosis and hepatorenal syndrome. 2. Multiorgan failure including kidney failure, on dialysis, respiratory failure, on ventilatory support, liver failure with cirrhosis, and possible hypoxic brain injury on EEG. 3. Sepsis secondary to pneumonia. IV antibiotics were adjusted yesterday. WBC count is trending down. Cultures, no growth to date. Chest x-ray does not show much change. 4. Bilateral pleural effusions. 5. Acute metabolic encephalopathy, likely due to anoxic brain injury. Repeat head CT scan did not show any effacement or edema or midline shift. However, EEG is consistent with toxic metabolic versus hypoxic ischemic changes. 6. Acute kidney injury, currently on dialysis. We will continue to monitor creatinine. 7. Liver cirrhosis secondary to alcohol and hepatitis C. Monitor ammonia level. Continue lactulose. 8. Hyperbilirubinemia, likely related to liver cirrhosis. 9. Hepatorenal syndrome. 10. Thrombocytopenia, secondary to liver cirrhosis. 11. Anasarca secondary to cirrhosis and hypoalbuminemia, currently on dialysis. 12. History of alcohol abuse. 13. Polysubstance abuse. 14. History of noncompliance. 15. Hyperphosphatemia. Plan: Family have now come to a decision, after being denied by LTAC, that they wish to keep the patient comfortable. They are interested in hospice care and withdrawal of care. The next of kin is the older son as well as daughter and other family members are present and are in agreement. They understand that withdrawal of care is terminal. Patient will most likely succumb to his illness. /MAITE Voice ID: [id number] Report ID: [id number] ANDREE
[2019-04-03] MEDS: PANTOPRAZOLE 40 MG INJ IVP SCH (12:24)
[2019-04-03] MEDS: FUROSEMIDE 40 MG in NA CHLORIDE 0.9% 50 ML IV SCH (12:24)
[2019-04-03] MEDS: LACTULOSE 20 GM/30 ML UCUP PO SCH ×2 (12:24→14:00)
[2019-04-03] MEDS: THIAMINE 200 MG/2 ML INJ IVP SCH (12:24)
[2019-04-03] MEDS: CEFEPIME/SWI 2gm 2 GM/20 ML SYR IV SCH (12:25)
[2019-04-03] MEDS: FENTANYL CITR 100 MCG/2 ML IV PRN (12:50)
--- NOTE | 2019-04-03 12:56 | P.PN ---
Subjective Date of Service: 04/03/19 Chief Complaint: Respiratory failure with ARDS in renal failure Pt with liver cirrhosis , developed MARIAH, resp failure required intubation and dialysis Today Still intubated RFT not improving while off HD low plt bili trending family agreed for hospice care will hold HD will sign-off call us prn Physical Examination - Vital Signs Temperature: 97.6 F Blood Pressure: 151/55 Pulse: 94 Respirations: 26 Pulse Ox (%): 99 - Physical Exam General: Comatose HEENT: Atraumatic Neck: Supple, Without JVD or thyroid abnormality Respiratory: Crackles/rales Cardiovascular: Regular rate/rhythm, Normal S1 S2, No gallops, No rubs, No murmurs, Edema Musculoskeletal: Swelling Assessment And Plan - Current Problems (Diagnosis) (1) Acute kidney injury Current Visit: Yes Status: Acute - Plan MARIAH Likely HRS I started on HD family agreed for comfort care will hold HD Acure resp failure Intubated Alcoholic liver cirrhosis elevated LFt and bilirubin Anemia Thrombocytopenia due to cirrhosis Severe sepsis with bandemia family agreed for comfort care ] will sign-off javy us prn
--- NOTE | 2019-04-05 05:03 | DS ---
Date of Discharge: 04/03/2019 Consultants: Dr. Campbell, Pulmonology; Dr. Patrick and Dr. Donaldson with Nephrology; Dr. Trujillo with Cardiology; Dr. Shetty with Neurology; Dr. Mortensen with General surgery. Procedures: On 03/28/2019, insertion of left subclavian hemodialysis catheter. Admitting Diagnoses: 1.Sepsis. 2.Edema due to hypoalbuminemia. 3.Alcoholic liver cirrhosis. 4.Anasarca. 5.Alcohol abuse. 6.Ascites. 7.Acute kidney injury. 8.Acute neutrophilia. Discharge Diagnoses: 1.Acute respiratory failure with hypoxia. 2.Multiorgan failure. 3.Sepsis. 4.Bilateral pleural effusions. 5.Acute metabolic encephalopathy. 6.Pneumonia. 7.Acute kidney injury, on dialysis. 8.Liver cirrhosis. 9.Chronic hepatitis C. 10.Alcohol abuse. 11.Hyperbilirubinemia. 12.Hepatorenal syndrome. 13.Thrombocytopenia. 14.Anasarca. 15.History of alcohol abuse. 16.Polysubstance abuse. 17.History of noncompliance. 18.Hypophosphatemia. Hospital Course: The patient is a 44-year-old male, history of longstanding alcohol abuse with alcoh olic liver cirrhosis, noncompliance, had left AMA multiple times, comes in with sepsis. Patient was found to have a MELD score of 26 with a 20% estimated mortality. Patient had imaging studies done in cluding head CT scan, abdomen and pelvis CT. Patient had deterioration of his condition, was hypoxic and acidotic. Patient did require blood transfusion. Patient required intubation, had to be starte d on dialysis. Dr. Mortensen placed a dialysis catheter and Nephrology was consulted. Patient develop ed worsening pulmonary edema. He went into hepatorenal syndrome. He was difficult to wean off the v entilator. He also had metabolic encephalopathy. He had elevated ammonia levels. Lactulose was sta rted. However, despite normal lactulose levels, he was not responsive, and therefore, Neurology eval uation was obtained. Head CT scan was done, which was negative. Head CT scan was repeated in a coup le of days. No changes were seen. There was no mass or hemorrhage. EEG was done, which showed toxi c and possible hypoxic brain injury pattern. Patient was continued on IV antibiotics, had elevated w shira count. Due to his multiorgan failure, patient had a poor prognosis. His cultures did not show any growth to date. He was having significant amount of sputum and final cultures from the sputum ar e now showing Enterobacter cloacae. Patient also had echocardiogram done and showed EF of 78%. He w as found to have aortic sclerosis. Patient was not improving despite aggressive measures, had multip le family meetings as detailed in the progress notes. Next of kin was the older son. Most family me mbers were involved and decision was made initially to transfer patient to LTAC as family did not wan t to withdraw care despite the poor prognosis. Patient was denied by LTAC. They did not wish to pur [place]ley any further LTAC referrals to different facilities and decided to keep the patient out of pain, k eep him comfortable and let his disease course take a natural end. Patient was therefore started on hospice care and withdrawal of care was initiated. Service of the patient was turned over to hospice physician. For physical exam findings, please see progress note dictated on the day of discharge. Overall, yuri ins poor prognosis. Total time spent discharging the patient was 47 minutes. AYAN Voice ID: [id number] Report ID: [id number]
== END 2019-04-03 15:03 | disposition hospice, inpatient (51) | DRG 870 ==
LOC: ER 06:08 → ERHOLD 12:02 → 4TH 14:53 → 3RD-ICU 19:55
PROVIDERS: ADMIT Family Medicine; ATTEND Family Medicine
PROC: 30233N1 Transfusion of Nonautologous Red Blood Cells into Peripheral Vein, Percutaneous Approach (ICD-10-PCS; principal; 2019-03-27)
PROC: 5A1955Z Respiratory Ventilation, Greater than 96 Consecutive Hours (ICD-10-PCS; 2019-03-28)
PROC: 0BH17EZ Insertion of Endotracheal Airway into Trachea, Via Natural or Artificial Opening (ICD-10-PCS; 2019-03-28)
PROC: 02HV33Z Insertion of Infusion Device into Superior Vena Cava, Percutaneous Approach (ICD-10-PCS; 2019-03-28)
PROC: 5A1D70Z Performance of Urinary Filtration, Intermittent, Less than 6 Hours Per Day (ICD-10-PCS; 2019-03-28)
DX: A41.9 Sepsis, unspecified organism (principal); J96.22 Acute and chronic respiratory failure with hypercapnia; J96.21 Acute and chronic respiratory failure with hypoxia; K76.7 Hepatorenal syndrome; N17.0 Acute kidney failure with tubular necrosis; R65.21 Severe sepsis with septic shock; G93.41 Metabolic encephalopathy; J15.6 Pneumonia due to other Gram-negative bacteria; J90 Pleural effusion, not elsewhere classified; N39.0 Urinary tract infection, site not specified; E87.2 Acidosis; G93.1 Anoxic brain damage, not elsewhere classified; K72.90 Hepatic failure, unspecified without coma; K70.31 Alcoholic cirrhosis of liver with ascites; F10.10 Alcohol abuse, uncomplicated; E88.09 Other disorders of plasma-protein metabolism, not elsewhere classified; Z91.19 Patient's noncompliance with other medical treatment and regimen; E16.2 Hypoglycemia, unspecified; E87.70 Fluid overload, unspecified; D63.8 Anemia in other chronic diseases classified elsewhere; E83.39 Other disorders of phosphorus metabolism; F15.10 Other stimulant abuse, uncomplicated; F11.10 Opioid abuse, uncomplicated; B18.2 Chronic viral hepatitis C; I70.0 Atherosclerosis of aorta; E66.9 Obesity, unspecified; Z68.38 Body mass index [BMI] 38.0-38.9, adult
CPT/HCPCS: 36415; 36430; 70450; 71045; 74018; 74176; 76705; 80048; 80053; 80069; 80076; 80307; 81003; 81015; 82140; 82553; 82570; 82728; 82746; 82805; 82947; 82962; 83036; 83520; 83525; 83540; 83605; 83735; 83970; 84100; 84145; 84156; 84165; 84443; 84466; 84550; 84681; 85025; 85610; 85730; 86021; 86038; 86160; 86317; 86430; 86705; 86706; 86803; 86850; 86900; 86901; 87040; 87070; 87077; 87086; 87088; 87186; 87205; 87340; 87389; 87522; 90935; 93005; 93306; 93971; 94002; 94003; 94640; 94760; 95816; 96361; 96365; 96375; 99285; C9113; J0330; J0692; J0696; J1630; J1644; J1650; J1720; J1940; J2250; J2270; J2354; J2405; J2704; J3010; J3411; J3475; P9016; P9047; Q4081

== ENCOUNTER 2019-04-03 15:07 | Inpatient (IN) | payer OTHER ==
--- OUTSIDE RECORDS SUMMARY | 2019-04-03 15:12 | XMS REPORT | Clinical Summary ---
:1975 Author Organization [facility] Address [address] [place] [address] Care Team Providers Name Role Phone Unavailable [...] unspecified fever cause Lauri Mendenhall MD after 04/02/2018 Social History Tobacco Use Types Packs/Day Years [...] CDT procedure are in the results section. [id number]\, Routine 12/23/2018 5:50 Results for this SERUM [...] are in INDICATED the results section. after 04/02/2018 Results Magnesium (12/26/2018 5:06 AM CDT)Only the most recent of5 resultswithin the time period is included. Magnesium 1.5 (L) 1.6 - 2.6 mg/dL [facility] CENTER Specimen Blood Performing Organization Address City/State/Zipcode Phone Number [facility] MED[facility] [address] [place] [address] CENTER Basic Metabolic Panel (12/26/2018 5:06 AM CDT)Only the most recent of3 resultswithin the time period is included. Sodium 132 (L) 136 - 145 meq/L [facility] Potassium 3.9 3.5 - 5.1 meq/L [facility] Chloride 103 98 - 107 meq/L [facility] CO2 27 22 - 29 meq/L [facility] BUN 10 7 - 21 mg/dL [facility] Creatinine 0.61 0.57 - 1.25 mg/dL [facility] Glucose 95 70 - 105 mg/dL [facility] Calcium 7.3 (L) 8.4 - 10.2 mg/dL [facility] EGFR 143Comment: ESTIMATED GFR IS mL/min/1.73 sq m [facility] NOT ACCURATE CREATININE [facility] CENTER CLEARANCE IN PREDICTING GLOMERULAR FILTRATION RATE. ESTIMATED GFR IS NOT APPLICABLE FOR DIALYSIS PATIENTS. Specimen Blood Performing Organization Address City/State/Zipcode Phone Number [facility] [address] [place] [address] [phone] CENTER US doppler (12/25/2018 1:05 PM CDT) Specimen Narrative Performed At FINAL REPORT [facility] Abdominal Doppler Ultrasound Clinical Diagnosis: Cirrhosis hepatocellular [...] MD Report Verified Date/Time:12/25/2018 14:38:51 Reading Location: [place] [id number] Ultrasound Reading Room Procedure Note Interface, External [...] Report Verified Date/Time: 12/25/2018 14:38:51 Reading Location: [address] Ultrasound Reading Room Performing Organization Address City/State/Zipcode Phone Number [facility] XR chest 1 view portable / bedside (12/25/2018 8:23 AM CDT)Only the most recent of2 resultswithin the time period is included. Specimen Narrative Performed At FINAL REPORT [facility] Chest one view. Clinical history: follow up pna Comparison: December 22, 2018 Discussion: A frontal chest is provided. Cardiomediastinal contours are unchanged. Left lower lobe opacity seen on the prior exam has essentially resolved. There is no pneumothorax, or pleural effusion. No acute bony abnormality. Signed: Abbie Salas MD Report Verified Date/Time:12/25/2018 08:59:58 Reading Location: [facility] Radiology Reading Room Procedure Note Interface, External [...] Report Verified Date/Time: 12/25/2018 08:59:58 Reading Location: [facility] Radiology Reading Room Performing Organization Address City/State/Zipcode Phone Number GE RIS Calcium, Ionized (12/25/2018 4:30 AM CDT)Only the most recent of4 resultswithin the time period is included. Calcium, Ion 1.01 (L) 1.12 - 1.27 mmol/L [facility] pH, Blood 7.45 [facility] Specimen Blood Performing Organization Address City/[facility]/Zipcode Phone Number [place] [phone] [place] [address] CENTER CBC with platelet count + automated diff (12/25/2018 4:30 AM CDT)Only the most recent of4 resultswithin the time period is included. WBC 6.3 3.5 - 10.5 K/L [facility] RBC 2.63 (L) 4.63 - 6.08 M/L [facility] Hemoglobin 8.9 (L) 13.7 - 17.5 GM/DL [facility] Hematocrit 27.0 (L) 40.1 - 51.0 % [facility] MCV 102.7 (H) 79.0 - 92.2 fL [facility] MCH 33.8 (H) 25.7 - 32.2 pg [facility] MCHC 33.0 32.3 - 36.5 GM/DL [facility] RDW 15.4 (H) 11.6 - 14.4 % [facility] Platelets 107 (L) 150 - 450 K/CU MM [facility] MPV 9.3 (L) 9.4 - 12.4 fL [facility] nRBC 0 0 - 0 /100 WBC [facility] % Neutros 61 % [facility] % Lymphs 17 % [facility] % Monos 12 % [facility] % Eos 10 % [facility] % Baso 1 % [facility] # Neutros 3.81 1.78 - 5.38 K/L [facility] # Lymphs 1.07 (L) 1.32 - 3.57 K/L [facility] # Monos 0.72 0.30 - 0.82 K/L [facility] # Eos 0.60 (H) 0.04 - 0.54 K/L [facility] # Baso 0.04 0.01 - 0.08 K/L [facility] Immature 1 0 - 1 % [facility] Granulocytes-[facility]ENTER Specimen Blood Performing Organization Address City/State/Zipcode Phone Number [facility] [address] [place] [address] [phone] CENTER Phosphorus (12/25/2018 4:30 AM CDT)Only the most recent of4 resultswithin the time period is included. Phosphorus 3.0 2.3 - 4.7 mg/dL [facility] Specimen Blood Performing Organization Address City/State/Zipcode Phone Number [address] [address] CENTER ECHOCARDIOGRAM REPORT - SCAN (12/24/2018 9:22 PM CDT) Narrative Performed At Vancomycin level, trough (12/24/2018 11:30 AM CDT) Vancomycin Tr 16.5 10.0 - 20.0 ug/mL [facility] Specimen Blood Performing Organization Address City/State/Zipcode Phone Number [facility] [address] [place] [address] CENTER 2D Echo W/Doppler(CW/PW/Color) (12/24/2018 8:06 AM CDT) Ejection Fraction [facility] Specimen Narrative Performed At Transthoracic Echocardiography Report (TTE) [facility] Demographics Patient NameRomie FRANKELte of Study12/24/2018 TRICE JOHNSTON Gender Male Visit [id number] Race Unknown [id number] Number Date of 1975 [place] 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 Age 43 year(s) SonographYsabel Jett [facility] Executive Asst Richy Wong Interpreting Physician JimMD Procedure Type [...] 12/24/2018 TRICE JOHNSTON Gender Male Visit Number [id number] Race Unknown Room Number 755 Number Date of 1975 Referring Katelyn 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 Age 43 year(s) 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 The method used in this test is RT-PCR and reverse hybridization (Line Probe) of the 5' UTR and core region of the HCV genome. The analytical performance characteristics of this assay have been determined by [facility]. The modifications have not been cleared or approved by the FDA. This assay has been validated pursuant to the CLIA regulations and is used for clinical purposes. For additional information, please refer to http://education.[email or web address].In1001.com /faq/HCVGenotyping (This link id being provided for informational/ educational purposes only.) Specimen Blood Narrative Performed At Performing Lab [facility] *QDID [facility] [address] [place] [address] Deidre Anderson MD Performing Organization Address City/State/Zipcode Phone Number [facility], [place] [address] INCORPORATED [address] [facility] Hepatitis C PCR, Quantitative (12/24/2018 6:40 AM CDT) HCV PCR, Quantitative 51,300 (H) <15 IU/mL [facility] Specimen Blood Narrative Performed At This test uses a Real-Time Polymerase Chain [facility] Reaction (RT-PCR) methodology and was performed using BANDAR Ampliprep/BANDAR TaqMan HCV test kit version 2.0 ([employer]). Reportable range for this assay is 15 - 100,000,000 IU per mL (1.18 - 8.00 Log IU/mL). Performing Organization Address City/State/Zipcode Phone Number [place] [phone] [place] [address] CENTER Comprehensive metabolic panel (12/24/2018 6:40 AM CDT)Only the most recent of2 resultswithin the time period is included. Protein, Total 4.6 (L) 6.0 - 8.3 gm/dL [facility] Albumin 2.1 (L) 3.5 - 5.0 g/dL [facility] Alkaline Phosphatase 83 40 - 150 U/L [facility] Total Bilirubin 1.6 (H) 0.2 - 1.2 mg/dL [facility] Sodium 136 136 - 145 meq/L [facility] Potassium 4.1 3.5 - 5.1 meq/L [facility] Chloride 107 98 - 107 meq/L [facility] CO2 26 22 - 29 meq/L [facility] BUN 11 7 - 21 mg/dL [facility] Creatinine 0.60 0.57 - 1.25 mg/dL [facility] Glucose 90 70 - 105 mg/dL [facility] Calcium 7.6 (L) 8.4 - 10.2 mg/dL [facility] AST 75 (H) 5 - 34 U/L [facility] ALT 30 6 - 55 U/L [facility] EGFR 146Comment: ESTIMATED mL/min/1.73 sq m [facility] GFR IS NOT ACCURATE [facility] CREATININE CLEARANCE IN PREDICTING GLOMERULAR FILTRATION RATE. ESTIMATED GFR IS NOT APPLICABLE FOR DIALYSIS PATIENTS. Specimen Blood Performing Organization Address City/[facility]/Zipcode Phone Number [address] [address] [place] Hemoglobin and hematocrit (12/23/2018 12:43 PM CDT) Hemoglobin 8.6 (L) 13.7 - 17.5 GM/DL [facility] Hematocrit 25.3 (L) 40.1 - 51.0 % [facility] Specimen Blood Performing Organization Address [facility] Phone Number [address] [address] [place] Blood Culture - Routine (Right Venipuncture) (12/23/2018 5:55 AM CDT)Only the most recent of4 resultswithin the time period is included. Result No growth in 5 days [facility] Specimen Blood Performing Organization Address City/[facility] Phone Number [address] [address] [phone] [place] Hepatitis A antibody, IgG (12/23/2018 5:50 AM CDT) Hep A IgG Nonreactive Nonreactive [facility] Specimen Blood Performing Organization Address [facility]/Zipcode Phone Number [address] [address] [place] Mitochondria M2 Antibody (IgG) (12/23/2018 5:50 AM CDT) Mitochondria M2 Ab <20.0 See Note: [facility] Comment: Reference Range: NEGATIVE:< OR=20.0 EQUIVOCAL: 20.1-24.9 POSITIVE:> OR=25.0 Specimen Blood Narrative Performed At Performing Lab [facility] [employer] [address] [address] Jose Alfredo Fernandez MD, PhD, CARMEN Performing Organization Address City/[facility] Phone Number [place] [address] [id number] [place] [address] Iron, TIBC, % sat. (without ferritin) (12/23/2018 5:50 AM CDT) Iron 51.0 40.0 - 160.0 ug/dL [facility] TIBC 134 (L) 250 - 450 ug/dL [facility] Iron % Saturation 38 20 - 55 % [facility] Specimen Blood Performing Organization Address [facility] Phone Number [facility] [address] [place], [place] [phone] CENTER Hepatitis C antibody (12/23/2018 5:50 AM CDT) Hepatitis C Ab Reactive (A) Nonreactive [facility] Specimen Blood Performing Organization Address [facility] Phone Number [facility] [address] [place] [address] CENTER Actin (Smooth Muscle) Antibody, IgG (12/23/2018 5:50 AM CDT) Anti-Smooth Muscle Ab <20 See Note: [facility] Comment: INCORPORATED Reference Range: <20 NEGATIVE [...] Specimen Blood Narrative Performed At Performing Lab [facility] [place] [id number] [place] [address] Jose Alfredo Fernandez MD, PhD, CARMEN Performing Organization Address [facility] Phone Number [place] [id number] [place] [address] [id number] (12/23/2018 5:50 AM CDT) A-1 Antitrypsin 151.30 90.00 - 200.00 mg/dL [facility] Specimen Blood Performing Organization Address [facility] Phone Number [address] [address] CENTER Hepatitis A antibody, IgM (12/23/2018 5:50 AM CDT) Hep A IgM Nonreactive Nonreactive [facility] Specimen Blood Performing Organization Address [facility] Phone Number [address] [address] CENTER Ceruloplasmin (12/23/2018 5:50 AM CDT) Ceruloplasmin 28 18 - 36 mg/dL [facility] Comment: Adults:Males: 18-36 mg/dL Females: 18-53 mg/dL Pediatrics:Males (mg/dL)Females (mg/dL) 0-30 Days 8-25 3-28 31 Days-11 Month -43 1-3 [id number] 4-6 [id number] 7-9 [id number] 10-12 [id number] 13-15 [id number] 16-18 [id number] The pediatric ranges are derived from the following criteria: Kishore REBOLLEDO, Goldie DONIS, Desi J et al Pediatric reference ranges for Bqrc-8-Ftwjzvrkzumhv and ceruloplasmin. Clin. Chem 1997; 43:S1999 Pediatric Reference Ranges, 2nd., [place] Kishoreet al. editors. [employer], [place], [place] 1997. Specimen Blood Narrative Performed At Performing Lab [facility] *SPL [facility], [address] [place] [phone] Daly Oviedo MD, PhD Performing Organization Address City/State/Zipcode Phone Number [facility], [place] [address] INCORPORATED [address] [facility] Alpha fetoprotein (AFP), tumor marker (12/23/2018 5:50 AM CDT) Alpha-Fetoprotein <2.0 <10.0 ng/mL [facility] Specimen Blood Performing Organization Address [facility] Phone Number [address] [address] [place] Hepatitis B core antibody, total (12/23/2018 5:50 AM CDT) Hep B Core Total Ab Nonreactive Nonreactive [facility] Specimen Blood Performing Organization Address [facility] Phone Number [address] [address] CENTER Hepatitis B surface antibody (12/23/2018 5:50 AM CDT) Hep B S Ab <8.0 <8.0 mIU/mL [facility] Specimen Blood Performing Organization Address [facility] Phone Number [address] [address] [place] Hepatitis B surface antigen (12/23/2018 5:50 AM CDT) hepatitis B Surface Ag Nonreactive Nonreactive [facility] Specimen Blood Performing Organization Address [facility] Phone Number [address] [address] CENTER Anti-Nuclear Antibody (OTIS) (12/23/2018 5:50 AM CDT) OTIS Negative Negative [facility] Specimen Blood Narrative Performed At Test performed by IFA method. [facility] Test performed by IFA method. Performing Organization Address [facility] Phone Number [address] [address] CENTER B-type Natriuretic Factor (BNP) (12/23/2018 5:50 AM CDT) BNP 141 (H) 0 - 100 pg/mL [facility] Specimen Blood Performing Organization Address [facility] Phone Number [address] [address] [place] Ferritin (12/23/2018 5:50 AM CDT) Ferritin 177 5 - 275 ng/mL [facility] Specimen Blood Performing Organization Address [facility] Phone Number [address] [address] CENTER Electrolytes (12/22/2018 9:39 PM CDT) Sodium 134 (L) 136 - 145 meq/L [facility] Potassium 4.1 3.5 - 5.1 meq/L [facility] Chloride 103 98 - 107 meq/L [facility] CO2 25 22 - 29 meq/L [facility] Specimen Blood Performing Organization Address [facility] Phone Number [address] [address] [place] Rapid drug screen, urine (12/22/2018 5:35 PM CDT) Barbiturate Screen Negative Negative [facility] Benzodiazepine Screen Negative Negative [facility] Cocaine (Metab.) Screen Negative Negative [facility] Methadone Screen Negative Negative [facility] Opiate Screen Positive (A) Negative [facility] Cannabinoid Screen Negative Negative [facility] Amph/Methamph Screen Positive (A) Negative [facility] Phencyclidine Screen Negative Negative [facility] Oxycodone Screen Negative Negative [facility] Specimen Urine Narrative Performed At DRUGCUTOFF [facility] CONC. Cocaine 300 ng/mL Nfvubetykok93 ng/mL Grgprcrmqidkig420 ng/mL Barbiturate 200 ng/mL Dzatjkzvfejwq97 ng/mL Mmdggr846 ng/mL Methadone 300 ng/mL Amphetamine/ 1000 ng/mL Methamphetamine Oxycodone 300 ng/mL This assay provides an unconfirmed qualitative test result for the clinical management of patients in emergency situations. Chain of custody not maintained. Some fnjc-stw-feqooym medications, as well as adulterants, may cause inaccurate results. Clinical correlation should be applied. A more comprehensive drug screen or confirmation of a detected drug may be performed upon request. Performing Organization Address City/[facility] Phone Number [address] [address] [place] Protein, random urine (12/22/2018 5:35 PM CDT) Protein, Urine 14 0 - 14 mg/dL [facility] Specimen Urine Performing Organization Address [facility] Phone Number [address] [address] [phone] [place] Creatinine, random urine (12/22/2018 5:35 PM CDT) Creatinine, Ur 72.8 mg/dL [facility] Specimen Urine Narrative Performed At Reference Range: No Normals [facility] Performing Organization Address [facility]/Zipcode Phone Number [address] [address] CENTER Drug screen, urine, transplant (12/22/2018 5:32 PM CDT) Specimen Urine Narrative Performed At Performing Organization Address City/[facility]/Zipcode Phone Number [facility] [phone] ethyl glucuronide (12/22/2018 5:31 PM CDT) Scan Result [facility] Specimen Urine Narrative Performed At Performing Organization Address City/[facility] Phone Number [facility] [address] [place] Ethanol (12/22/2018 4:06 PM CDT) Ethanol Lvl <10 <=10 mg/dL [facility] Specimen Blood Performing Organization Address [facility] Phone Number [address] [address] CENTER Procalcitonin (12/22/2018 1:56 AM CDT) Procalcitonin 6.04 (H) <0.05 ng/mL [facility] Specimen Blood Narrative Performed At SEPSIS RISK (ng/mL) [facility] Low:0.05-0.50 Intermediate: 0.51-2.00 High: >=2.01 Performing Organization Address [facility] Phone Number [address] [address] [phone] [place] Lactic acid, venous (12/22/2018 1:56 AM CDT) Lactate, Venous 1.4Comment: Specimen 0.5 - 2.2 mmol/L [facility] slightly hemolyzed [facility] Specimen Blood Performing Organization Address [facility] Phone Number [address] [address] [phone] CENTER aPTT (12/22/2018 1:56 AM CDT) PTT 37.7 (H) 22.5 - 36.0 seconds [facility] Specimen Blood Performing Organization Address [facility] Phone Number [address] [address] CENTER Prothrombin time/INR (12/22/2018 1:56 AM CDT) Protime 17.4 (H) 11.7 - 14.7 seconds [facility] INR 1.4 <=5.9 [facility] Specimen Blood Narrative Performed At RECOMMENDED COUMADIN/WARFARIN INR THERAPY [facility] RANGES STANDARD DOSE: 2.0 - 3.0 Includes: PROPHYLAXIS for venous thrombosis, systemic embolization; TREATMENT for venous thrombosis and/or pulmonary embolus. HIGH RISK: Target INR is 2.5-3.5 for patients with mechanical heart valves. Performing Organization Address [facility] Phone Number [address] [address] [phone] [place] Hepatic function panel (12/22/2018 1:56 AM CDT) Protein, Total 5.0 (L) 6.0 - 8.3 gm/dL [facility] Albumin 1.7 (L) 3.5 - 5.0 g/dL [facility] Total Bilirubin 1.6 (H) 0.2 - 1.2 mg/dL [facility] Bilirubin, Direct 1.0 (H) 0.1 - 0.5 mg/dL [facility] Alkaline Phosphatase 110 40 - 150 U/L [facility] AST 93 (H) 5 - 34 U/L [facility] ALT 45 6 - 55 U/L [facility] Specimen Blood Performing Organization Address City/[facility] Phone Number [address] [address] [place] Urinalysis Microscopic Only (12/22/2018 1:34 AM CDT) RBC, UA 4 /HPF [facility] WBC, UA 1 /HPF [facility] Mucus Rare [facility] Squam Epithel, UA <1 /HPF [facility] Hyaline Casts, UA 6 /LPF [facility] Specimen Urine Performing Organization Address City/State/Zipcode Phone Number [facility] [address] [place] [address] [place] Urinalysis with Microscopic If Indicated (12/22/2018 1:34 AM CDT) Color, UA Yellow [facility] Clarity, UA Clear [facility] Specific Morton, UA 1.016 1.001 - 1.035 [facility] pH, UA 5.5 5.0 - 8.0 [facility] Protein, UA 30 mg/dL (A) Negative [facility] Glucose, UA Negative Negative [facility] Ketones, UA Negative Negative [facility] Bilirubin, UA Negative Negative [facility] Blood, UA Moderate (A) Negative [facility] Nitrite, UA Negative Negative [facility] Leukocytes, UA Negative Negative [facility] Urobilinogen, UA 0.2 0.2 - 1.0 mg/dL [facility] Specimen Source [facility] Specimen Urine Performing Organization Address City/State/Zipcode Phone Number [facility] [address] [place] [address] [phone] HERNANDEZ after 04/02/2018 Insurance Payer Benefit Plan / Group Subscriber ID Type Phone Address MEDICARE MEDICARE A B xxxxxxxxxxx Medicare
--- OUTSIDE RECORDS SUMMARY | 2019-04-03 15:12 | XMS REPORT ---
:1975 Author Organization [facility] Address [address] [place] [address] Dr. Willingham [address] [place] [id number] Care Team Providers Name Role Phone FAUZIA MCGRATH Unavailable Unavailable Problems This patient has no known problems. Allergies, Adverse Reactions, Alerts This patient has no known allergies or adverse reactions. Medications This patient has no known medications. Encounters Start End Encounter Admission Attending Care Care Encounter Date/Time Date/Time Type Type Clinicians Facility Department ID 2019-01-12 Outpatient [facility] 9601 16:13:33 2019-01-12 Inpatient [facility] 8135 16:12:59 Results Test Description Test Time Test Comments Text Results Atomic Results Result Comments MISCELLANEOUS LAB ORDER 2018-12-29 12:46:00 Test Item Value Reference Range Comments SCAN RESULT (test [id number]=[id number]) BLOOD [id number] 08:00:00 Test Item Value Reference Range Comments CULTURE (BEAKER) (test bzge=1775) No growth in 5 days BLOOD [id number] 08:00:00 Test Item Value Reference Range Comments CULTURE (BEAKER) (test gmet=8237) No growth in 5 days BLOOD [id number] 08:01:00 Test Item Value Reference Range Comments CULTURE (BEAKER) (test snso=8490) No growth in 5 days BLOOD [id number] 08:01:00 Test Item Value Reference Range Comments CULTURE (BEAKER) (test wkzx=2309) No growth in 5 days HEPATITIS C PCR, [id number] 09:35:00 Test Item Value Reference Range Comments HCV NUMERIC RESULT (BEAKER) (test htry=4116) 89108 IU/mL <15 This test uses a Real-Time Polymerase Chain Reaction (RT-PCR) methodology and was performed using BANDAR Ampliprep/BANDAR TaqMan HCV test kit version 2.0 ( [employer]).Reportable range for this assay is 15 - 100,000, 000 IU per mL (1.18 - 8.00 Log IU/mL).BASIC METABOLIC [id number] 06:42:00 Test Item Value Reference Range Comments SODIUM (BEAKER) (test 132 meq/L 136-145 xkbo=156) POTASSIUM (BEAKER) (test 3.9 meq/L 3.5-5.1 iylb=639) CHLORIDE (BEAKER) (test 103 meq/L 98-107 fmye=986) CO2 (BEAKER) (test 27 meq/L 22-29 xuum=612) BLOOD UREA NITROGEN 10 mg/dL 7-21 (BEAKER) (test dqix=569) CREATININE (BEAKER) (test 0.61 mg/dL 0.57-1.25 tphj=162) GLUCOSE RANDOM (BEAKER) 95 mg/dL 70-105 (test nwtf=246) CALCIUM (BEAKER) (test 7.3 mg/dL 8.4-10.2 ofrp=037) EGFR (BEAKER) (test 143 mL/min/1.73 sq m ESTIMATED GFR IS NOT kfby=9137) ACCURATE CREATININE CLEARANCE IN PREDICTING GLOMERULAR FILTRATION RATE. ESTIMATED GFR IS NOT APPLICABLE FOR DIALYSIS PATIENTS. [id number] 06:17:00 Test Item Value Reference Range Comments MAGNESIUM (BEAKER) (test gehr=488) 1.5 mg/dL 1.6-2.6 U/S, DUPLEX, [id number] 14:38:00Ultrasound abdomen with doppler Patient is pending [...] Martinez Verified Date/Time: 12/25/2018 14:38:51 Reading Location: [address] Ultrasound Reading Room RAD, CHEST, 1 VIEW, NON [id number] 08:59:00Reason for exam:->follow up pnaShould this be [...] MDReport Verified Date/Time: 12/25/2018 08:59:58 Reading Location: [facility] Radiology Reading Room CALCIUM, [id number] 06:19:00 Test Item Value Reference Range Comments CALCIUM IONIZED (BEAKER) (test ltgm=511) 1.01 mmol/L 1.12-1.27 PH, BLOOD (BEAKER) (test ahev=2087) 7.45 CBC W/PLT COUNT & AUTO [id number] 05:59:00 Test Item Value Reference Range Comments WHITE BLOOD CELL COUNT (BEAKER) (test scvv=816) 6.3 K/ L 3.5-10.5 RED BLOOD CELL COUNT (BEAKER) (test sntw=596) 2.63 M/ L 4.63-6.08 HEMOGLOBIN (BEAKER) (test gytn=515) 8.9 GM/DL 13.7-17.5 HEMATOCRIT (BEAKER) (test mzzr=786) 27.0 % 40.1-51.0 MEAN CORPUSCULAR VOLUME (BEAKER) (test drlj=176) 102.7 fL 79.0-92.2 MEAN CORPUSCULAR HEMOGLOBIN (BEAKER) (test 33.8 pg 25.7-32.2 iduj=079) MEAN CORPUSCULAR HEMOGLOBIN CONC (BEAKER) (test 33.0 GM/DL 32.3-36.5 lrtr=377) RED CELL DISTRIBUTION WIDTH (BEAKER) (test 15.4 % 11.6-14.4 hrcz=111) PLATELET COUNT (BEAKER) (test omjl=973) 107 K/CU MM 150-450 MEAN PLATELET VOLUME (BEAKER) (test tcfd=187) 9.3 fL 9.4-12.4 NUCLEATED RED BLOOD CELLS (BEAKER) (test 0 /100 WBC 0-0 xmsp=356) NEUTROPHILS RELATIVE PERCENT (BEAKER) (test 61 % ntfi=137) LYMPHOCYTES RELATIVE PERCENT (BEAKER) (test 17 % kanv=333) MONOCYTES RELATIVE PERCENT (BEAKER) (test 12 % siww=631) EOSINOPHILS RELATIVE PERCENT (BEAKER) (test 10 % urvb=203) BASOPHILS RELATIVE PERCENT (BEAKER) (test 1 % dybr=381) NEUTROPHILS ABSOLUTE COUNT (BEAKER) (test 3.81 K/ L 1.78-5.38 taow=522) LYMPHOCYTES ABSOLUTE COUNT (BEAKER) (test 1.07 K/ L 1.32-3.57 xmvb=253) MONOCYTES ABSOLUTE COUNT (BEAKER) (test 0.72 K/ L 0.30-0.82 qspo=237) EOSINOPHILS ABSOLUTE COUNT (BEAKER) (test 0.60 K/ L 0.04-0.54 hfen=363) BASOPHILS ABSOLUTE COUNT (BEAKER) (test 0.04 K/ L 0.01-0.08 xksi=317) IMMATURE GRANULOCYTES-RELATIVE PERCENT (BEAKER) 1 % 0-1 (test ibdw=1449) BASIC METABOLIC [id number] 05:43:00 Test Item Value Reference Range Comments SODIUM (BEAKER) (test 136 meq/L 136-145 bhpj=488) POTASSIUM (BEAKER) (test 4.1 meq/L 3.5-5.1 kxsn=625) CHLORIDE (BEAKER) (test 107 meq/L 98-107 mgep=966) CO2 (BEAKER) (test 27 meq/L 22-29 pmfc=754) BLOOD UREA NITROGEN 11 mg/dL 7-21 (BEAKER) (test sfbe=272) CREATININE (BEAKER) (test 0.62 mg/dL 0.57-1.25 azun=409) GLUCOSE RANDOM (BEAKER) 90 mg/dL 70-105 (test geia=725) CALCIUM (BEAKER) (test 7.7 mg/dL 8.4-10.2 qtaz=326) EGFR (BEAKER) (test 140 mL/min/1.73 sq m ESTIMATED GFR IS NOT gqbd=0257) ACCURATE CREATININE CLEARANCE IN PREDICTING GLOMERULAR FILTRATION RATE. ESTIMATED GFR IS NOT APPLICABLE FOR DIALYSIS PATIENTS. [id number] 05:42:00 Test Item Value Reference Range Comments PHOSPHORUS (BEAKER) (test kmwq=354) 3.0 mg/dL 2.3-4.7 [id number] 05:42:00 Test Item Value Reference Range Comments MAGNESIUM (BEAKER) (test lkto=998) 1.4 mg/dL 1.6-2.6 VANCOMYCIN LEVEL, [id number] 12:04:00 Test Item Value Reference Range Comments VANCOMYCIN TROUGH (BEAKER) (test gimg=172) 16.5 ug/mL 10.0-20.0 ANTI-NUCLEAR ANTIBODY (OTIS)2018-12-24 09:42:00 Test Item Value Reference Range Comments ANTI-NUCLEAR ANTIBODY (OTIS) (BEAKER) (test Negative Negative tgoa=963) Test performed by IFA method.Test performed by IFA method.CBC W/PLT COUNT & AUTO [id number] 07:52:00 Test Item Value Reference Range Comments WHITE BLOOD CELL COUNT (BEAKER) (test kxyu=385) 4.9 K/ L 3.5-10.5 RED BLOOD CELL COUNT (BEAKER) (test zpyc=838) 2.43 M/ L 4.63-6.08 HEMOGLOBIN (BEAKER) (test ehjj=415) 8.3 GM/DL 13.7-17.5 HEMATOCRIT (BEAKER) (test dysz=280) 24.8 % 40.1-51.0 MEAN CORPUSCULAR VOLUME (BEAKER) (test dqsr=505) 102.1 fL 79.0-92.2 MEAN CORPUSCULAR HEMOGLOBIN (BEAKER) (test 34.2 pg 25.7-32.2 tafv=579) MEAN CORPUSCULAR HEMOGLOBIN CONC (BEAKER) (test 33.5 GM/DL 32.3-36.5 pxmo=341) RED CELL DISTRIBUTION WIDTH (BEAKER) (test 15.6 % 11.6-14.4 uuou=276) PLATELET COUNT (BEAKER) (test jcgk=582) 96 K/CU MM 150-450 MEAN PLATELET VOLUME (BEAKER) (test zkxd=982) 9.3 fL 9.4-12.4 NUCLEATED RED BLOOD CELLS (BEAKER) (test 0 /100 WBC 0-0 jjhr=909) NEUTROPHILS RELATIVE PERCENT (BEAKER) (test 52 % xmru=295) LYMPHOCYTES RELATIVE PERCENT (BEAKER) (test 20 % kuei=521) MONOCYTES RELATIVE PERCENT (BEAKER) (test 14 % fzjr=606) EOSINOPHILS RELATIVE PERCENT (BEAKER) (test 13 % efee=645) BASOPHILS RELATIVE PERCENT (BEAKER) (test 1 % ysdv=199) NEUTROPHILS ABSOLUTE COUNT (BEAKER) (test 2.51 K/ L 1.78-5.38 fbvo=376) LYMPHOCYTES ABSOLUTE COUNT (BEAKER) (test 0.99 K/ L 1.32-3.57 dfii=785) MONOCYTES ABSOLUTE COUNT (BEAKER) (test dpwi=682) 0.70 K/ L 0.30-0.82 EOSINOPHILS ABSOLUTE COUNT (BEAKER) (test 0.62 K/ L 0.04-0.54 ijeo=458) BASOPHILS ABSOLUTE COUNT (BEAKER) (test detm=868) 0.04 K/ L 0.01-0.08 IMMATURE GRANULOCYTES-RELATIVE PERCENT (BEAKER) 0 % 0-1 (test rdoz=1358) COMPREHENSIVE METABOLIC [id number] 07:34:00 Test Item Value Reference Range Comments TOTAL PROTEIN (BEAKER) 4.6 gm/dL 6.0-8.3 (test bdlb=747) ALBUMIN (BEAKER) (test 2.1 g/dL 3.5-5.0 sbmu=2789) ALKALINE PHOSPHATASE 83 U/L 40-150 (BEAKER) (test sodu=160) BILIRUBIN TOTAL (BEAKER) 1.6 mg/dL 0.2-1.2 (test snzb=393) SODIUM (BEAKER) (test 136 meq/L 136-145 gjux=210) POTASSIUM (BEAKER) (test 4.1 meq/L 3.5-5.1 xrnr=805) CHLORIDE (BEAKER) (test 107 meq/L 98-107 yaai=234) CO2 (BEAKER) (test 26 meq/L 22-29 stun=021) BLOOD UREA NITROGEN 11 mg/dL 7-21 (BEAKER) (test opho=375) CREATININE (BEAKER) (test 0.60 mg/dL 0.57-1.25 pxuh=604) GLUCOSE RANDOM (BEAKER) 90 mg/dL 70-105 (test oceg=879) CALCIUM (BEAKER) (test 7.6 mg/dL 8.4-10.2 zjls=183) AST (SGOT) (BEAKER) (test 75 U/L 5-34 jmfq=614) ALT (SGPT) (BEAKER) (test 30 U/L 6-55 ddal=848) EGFR (BEAKER) (test 146 mL/min/1.73 sq ESTIMATED GFR IS NOT cire=6864) m ACCURATE CREATININE CLEARANCE IN PREDICTING GLOMERULAR FILTRATION RATE. ESTIMATED GFR IS NOT APPLICABLE FOR DIALYSIS PATIENTS. [id number] 07:24:00 Test Item Value Reference Range Comments PHOSPHORUS (BEAKER) (test inph=568) 3.0 mg/dL 2.3-4.7 [id number] 07:24:00 Test Item Value Reference Range Comments MAGNESIUM (BEAKER) (test hipl=376) 1.2 mg/dL 1.6-2.6 CALCIUM, [id number] 06:56:00 Test Item Value Reference Range Comments CALCIUM IONIZED (BEAKER) (test vnaq=355) 1.04 mmol/L 1.12-1.27 PH, BLOOD (BEAKER) (test rkhc=9111) 7.46 HEMOGLOBIN AND [id number] 13:00:00 Test Item Value Reference Range Comments HEMOGLOBIN (BEAKER) (test uepo=120) 8.6 GM/DL 13.7-17.5 HEMATOCRIT (BEAKER) (test ttck=928) 25.3 % 40.1-51.0 [id number] 09:54:00 Test Item Value Reference Range Comments ALPHA-1 ANTITRYPSIN (BEAKER) (test grur=040) 151.30 mg/dL 90.00-200.00 HEPATITIS C [id number] 08:34:00 Test Item Value Reference Range Comments HEPATITIS C ANTIBODY (BEAKER) (test ozqq=527) Reactive Nonreactive [id number] 08:12:00 Test Item Value Reference Range Comments FERRITIN (BEAKER) (test fceb=454) 177 ng/mL 5-275 ALPHA FETOPROTEIN (AFP), TUMOR [id number] 07:23:00 Test Item Value Reference Range Comments ALPHA-FETOPROTEIN (BEAKER) (test dcth=5738) < ng/mL <10.0 HEPATITIS B SURFACE [id number] 07:23:00 Test Item Value Reference Range Comments HEPATITIS B SURFACE ANTIBODY (BEAKER) (test < mIU/mL <8.0 ijzu=177) CALCIUM, [id number] 07:03:00 Test Item Value Reference Range Comments CALCIUM IONIZED (BEAKER) (test cahh=715) 1.00 mmol/L 1.12-1.27 PH, BLOOD (BEAKER) (test dgxd=4423) 7.47 COMPREHENSIVE METABOLIC [id number] 06:56:00 Test Item Value Reference Range Comments TOTAL PROTEIN (BEAKER) 4.5 gm/dL 6.0-8.3 (test kdtp=964) ALBUMIN (BEAKER) (test 1.8 g/dL 3.5-5.0 tlfo=4170) ALKALINE PHOSPHATASE 84 U/L 40-150 (BEAKER) (test opql=416) BILIRUBIN TOTAL (BEAKER) 1.3 mg/dL 0.2-1.2 (test ghpt=654) SODIUM (BEAKER) (test 135 meq/L 136-145 cajs=941) POTASSIUM (BEAKER) (test 3.9 meq/L 3.5-5.1 jmmb=030) CHLORIDE (BEAKER) (test 107 meq/L 98-107 cjbl=411) CO2 (BEAKER) (test 26 meq/L 22-29 muyn=606) BLOOD UREA NITROGEN 14 mg/dL 7-21 (BEAKER) (test ddww=343) CREATININE (BEAKER) (test 0.65 mg/dL 0.57-1.25 utbw=329) GLUCOSE RANDOM (BEAKER) 95 mg/dL 70-105 (test vxtb=303) CALCIUM (BEAKER) (test 7.7 mg/dL 8.4-10.2 odhj=680) AST (SGOT) (BEAKER) (test 83 U/L 5-34 bwfs=365) ALT (SGPT) (BEAKER) (test 33 U/L 6-55 jogw=634) EGFR (BEAKER) (test 133 mL/min/1.73 sq ESTIMATED GFR IS NOT vpqd=4352) m ACCURATE CREATININE CLEARANCE IN PREDICTING GLOMERULAR FILTRATION RATE. ESTIMATED GFR IS NOT APPLICABLE FOR DIALYSIS PATIENTS. HEPATITIS A ANTIBODY, [id number] 06:56:00 Test Item Value Reference Range Comments HEPATITIS A IGM ANTIBODY (BEAKER) (test Nonreactive Nonreactive zkrf=364) HEPATITIS B CORE ANTIBODY, [id number] 06:56:00 Test Item Value Reference Range Comments HEPATITIS B CORE TOTAL ANTIBODY (BEAKER) (test Nonreactive Nonreactive tkuz=536) HEPATITIS A ANTIBODY, [id number] 06:56:00 Test Item Value Reference Range Comments HEPATITIS A IGG ANTIBODY (BEAKER) (test Nonreactive Nonreactive afzy=0129) [id number] 06:55:00 Test Item Value Reference Range Comments PHOSPHORUS (BEAKER) (test oqju=368) 3.1 mg/dL 2.3-4.7 [id number] 06:55:00 Test Item Value Reference Range Comments MAGNESIUM (BEAKER) (test jbqp=713) 1.7 mg/dL 1.6-2.6 HEPATITIS B SURFACE [id number] 06:54:00 Test Item Value Reference Range Comments HEPATITIS B SURFACE ANTIGEN (2) (BEAKER) (test Nonreactive Nonreactive mzdx=6780) B-TYPE NATRIURETIC FACTOR (BNP)2018-12-23 06:40:00 Test Item Value Reference Range Comments B-TYPE NATRIURETIC PEPTIDE (BEAKER) (test 141 pg/mL 0-100 vnco=086) IRON, TIBC, % SAT. (WITHOUT FERRITIN)2018-12-23 06:33:00 Test Item Value Reference Range Comments IRON (BEAKER) (test dvzz=824) 51.0 ug/dL 40.0-160.0 TOTAL IRON BINDING CAPACITY (BEAKER) (test 134 ug/dL 250-450 vuse=065) IRON % SATURATION (2) (BEAKER) (test kbyz=2690) 38 % 20-55 CBC W/PLT COUNT & AUTO [id number] 06:31:00 Test Item Value Reference Range Comments WHITE BLOOD CELL COUNT (BEAKER) (test azkk=807) 4.8 K/ L 3.5-10.5 RED BLOOD CELL COUNT (BEAKER) (test pnca=867) 2.28 M/ L 4.63-6.08 HEMOGLOBIN (BEAKER) (test ifez=157) 7.9 GM/DL 13.7-17.5 HEMATOCRIT (BEAKER) (test piyq=829) 23.3 % 40.1-51.0 MEAN CORPUSCULAR VOLUME (BEAKER) (test xlmn=104) 102.2 fL 79.0-92.2 MEAN CORPUSCULAR HEMOGLOBIN (BEAKER) (test 34.6 pg 25.7-32.2 dcah=345) MEAN CORPUSCULAR HEMOGLOBIN CONC (BEAKER) (test 33.9 GM/DL 32.3-36.5 djlr=674) RED CELL DISTRIBUTION WIDTH (BEAKER) (test 15.6 % 11.6-14.4 jrly=503) PLATELET COUNT (BEAKER) (test umfv=342) 87 K/CU MM 150-450 MEAN PLATELET VOLUME (BEAKER) (test abcr=839) 9.1 fL 9.4-12.4 NUCLEATED RED BLOOD CELLS (BEAKER) (test 0 /100 WBC 0-0 wehd=389) NEUTROPHILS RELATIVE PERCENT (BEAKER) (test 51 % mjgj=101) LYMPHOCYTES RELATIVE PERCENT (BEAKER) (test 20 % rsse=458) MONOCYTES RELATIVE PERCENT (BEAKER) (test 17 % rurv=846) EOSINOPHILS RELATIVE PERCENT (BEAKER) (test 12 % kwzi=440) BASOPHILS RELATIVE PERCENT (BEAKER) (test 1 % hfuj=040) NEUTROPHILS ABSOLUTE COUNT (BEAKER) (test 2.41 K/ L 1.78-5.38 zood=868) LYMPHOCYTES ABSOLUTE COUNT (BEAKER) (test 0.95 K/ L 1.32-3.57 ntyo=314) MONOCYTES ABSOLUTE COUNT (BEAKER) (test hhbg=976) 0.79 K/ L 0.30-0.82 EOSINOPHILS ABSOLUTE COUNT (BEAKER) (test 0.55 K/ L 0.04-0.54 oddy=297) BASOPHILS ABSOLUTE COUNT (BEAKER) (test swdy=968) 0.04 K/ L 0.01-0.08 IMMATURE GRANULOCYTES-RELATIVE PERCENT (BEAKER) 1 % 0-1 (test zeom=9585) [id number] 22:24:00 Test Item Value Reference Range Comments MAGNESIUM (BEAKER) (test fogu=832) 0.9 mg/dL 1.6-2.6 CALCIUM, [id number] 22:15:00 Test Item Value Reference Range Comments CALCIUM IONIZED (BEAKER) (test srnb=296) 0.93 mmol/L 1.12-1.27 PH, BLOOD (BEAKER) (test qjzu=2201) 7.48 [id number] 22:14:00 Test Item Value Reference Range Comments PHOSPHORUS (BEAKER) (test whel=159) 3.2 mg/dL 2.3-4.7 [id number] 22:14:00 Test Item Value Reference Range Comments SODIUM (BEAKER) (test ukhe=018) 134 meq/L 136-145 POTASSIUM (BEAKER) (test aqlu=504) 4.1 meq/L 3.5-5.1 CHLORIDE (BEAKER) (test kjcl=244) 103 meq/L 98-107 CO2 (BEAKER) (test oepx=244) 25 meq/L 22-29 CREATININE, RANDOM [id number] 18:59:00 Test Item Value Reference Range Comments CREATININE URINE (BEAKER) (test bndn=759) 72.8 mg/dL Reference Range: No NormalsPROTEIN, RANDOM [id number] 18:59:00 Test Item Value Reference Range Comments PROTEIN, URINE (BEAKER) (test kywx=9095) 14 mg/dL 0-14 RAPID DRUG SCREEN, [id number] 18:59:00 Test Item Value Reference Range Comments BARBITURATE URINE (BEAKER) (test gvme=609) Negative Negative BENZODIAZEPINE SCREEN URINE (BEAKER) (test Negative Negative olgf=345) COCAINE (METAB.) SCREEN (BEAKER) (test sjwo=1919) Negative Negative METHADONE SCREEN (BEAKER) (test nosa=4264) Negative Negative OPIATE SCREEN URINE (BEAKER) (test upuc=449) Positive Negative CANNABINOID SCREEN URINE (BEAKER) (test bgkp=652) Negative Negative AMPH/METHAMPH SCREEN (BEAKER) (test lgnj=0935) Positive Negative PHENCYCLIDINE SCREEN URINE (BEAKER) (test acme=173) Negative Negative OXYCODONE SCREEN URINE (BEAKER) (test pkal=5675) Negative Negative DRUG CUTOFF CONC.Cocaine 300 ng/mL Cannabinoid 50 ng/mL Benzodiazepine 200 ng/mLBarbiturate 200 ng/ mLPhencyclidine 25 ng/mLOpiate 300 ng/mLMethadone 300 ng/mLAmphetamine/ 1000 ng/mL MethamphetamineOxycodone 300 ng/mLThis assay provides an unconfirmed qualitative test result for the clinical management of patients in emergency situations. Chain of custody not maintained. Some brex-xom-ljhqgmd medications, as well as adulterants, may cause inaccurate results. Clinical correlation should be applied. A more comprehensive drug screen or confirmation of a detected drug may be performed upon request.[id number] 17:40:00 Test Item Value Reference Range Comments ETHANOL (BEAKER) (test zbkc=037) < mg/dL <=10 RAD, CHEST, 1 VIEW, NON [id number] 10:10:00Reason for exam:-> dyspenaShould this be performed [...] [place]eport Verified Date/Time: 2018 10:10:47 Reading Location: [facility] Radiology Reading Room URINALYSIS WITH MICROSCOPIC IF [id number] 05:09:00 Test Item Value Reference Range Comments COLOR (BEAKER) (test krzr=332) Yellow CLARITY (BEAKER) (test yzrs=291) Clear SPECIFIC GRAVITY UA (BEAKER) (test zjbv=789) 1.016 1.001-1.035 PH UA (BEAKER) (test rpck=072) 5.5 5.0-8.0 PROTEIN UA (BEAKER) (test flvg=209) 30 mg/dL Negative GLUCOSE UA (BEAKER) (test yask=998) Negative Negative KETONES UA (BEAKER) (test uzar=340) Negative Negative BILIRUBIN UA (BEAKER) (test srfu=951) Negative Negative BLOOD UA (BEAKER) (test hlnq=539) Moderate Negative NITRITE UA (BEAKER) (test zxja=412) Negative Negative LEUKOCYTE ESTERASE UA (BEAKER) (test widv=575) Negative Negative UROBILINOGEN UA (BEAKER) (test grdt=307) 0.2 mg/dL 0.2-1.0 SOURCE(BEAKER) (test wkxf=6184) URINALYSIS [id number] 05:09:00 Test Item Value Reference Range Comments RBC UA (BEAKER) (test iegf=521) 4 /HPF WBC UA (BEAKER) (test hzhk=372) 1 /HPF MUCUS (BEAKER) (test yvho=7224) Rare SQUAMOUS EPITHELIAL (BEAKER) (test ytmv=541) < /HPF HYALINE CASTS (BEAKER) (test bsbg=952) 6 /LPF HEPATIC FUNCTION [id number] 03:57:00 Test Item Value Reference Range Comments TOTAL PROTEIN (BEAKER) (test hxcc=027) 5.0 gm/dL 6.0-8.3 ALBUMIN (BEAKER) (test dpza=2575) 1.7 g/dL 3.5-5.0 BILIRUBIN TOTAL (BEAKER) (test fwgc=938) 1.6 mg/dL 0.2-1.2 BILIRUBIN DIRECT (BEAKER) (test kihq=467) 1.0 mg/dL 0.1-0.5 ALKALINE PHOSPHATASE (BEAKER) (test fjaj=066) 110 U/L 40-150 AST (SGOT) (BEAKER) (test quxk=126) 93 U/L 5-34 ALT (SGPT) (BEAKER) (test lviw=119) 45 U/L 6-55 BASIC METABOLIC [id number] 03:29:00 Test Item Value Reference Range Comments SODIUM (BEAKER) (test 135 meq/L 136-145 odpw=576) POTASSIUM (BEAKER) (test 4.0 meq/L 3.5-5.1 aoqf=200) CHLORIDE (BEAKER) (test 106 meq/L 98-107 iwle=536) CO2 (BEAKER) (test 24 meq/L 22-29 geyg=727) BLOOD UREA NITROGEN 16 mg/dL 7-21 (BEAKER) (test evnw=726) CREATININE (BEAKER) (test 0.70 mg/dL 0.57-1.25 tptt=279) GLUCOSE RANDOM (BEAKER) 107 mg/dL 70-105 (test pocm=809) CALCIUM (BEAKER) (test 7.7 mg/dL 8.4-10.2 zzqd=423) EGFR (BEAKER) (test 122 mL/min/1.73 sq m ESTIMATED GFR IS NOT nezk=3903) ACCURATE CREATININE CLEARANCE IN PREDICTING GLOMERULAR FILTRATION RATE. ESTIMATED GFR IS NOT APPLICABLE FOR DIALYSIS PATIENTS. LACTIC ACID, [id number] 03:02:00 Test Item Value Reference Range Comments LACTATE BLOOD VENOUS (2) 1.4 mmol/L 0.5-2.2 Specimen slightly hemolyzed (BEAKER) (test zbrd=8989) [id number] 02:56:00 Test Item Value Reference Range Comments PROCALCITONIN (BEAKER) (test lmtj=2645) 6.04 ng/mL <0.05 SEPSIS RISK (ng/mL)Low: 0.05-0.50Intermediate: 0.51-2.00High: & gt;=[id number] 02:27:00 Test Item Value Reference Range Comments PARTIAL THROMBOPLASTIN TIME (BEAKER) (test 37.7 seconds 22.5-36.0 kxng=027) PROTHROMBIN TIME/[id number] 02:26:00 Test Item Value Reference Range Comments PROTIME (BEAKER) (test hrzb=992) 17.4 seconds 11.7-14.7 INR (BEAKER) (test prlc=706) 1.4 <=5.9 RECOMMENDED COUMADIN/WARFARIN INR THERAPY RANGESSTANDARD DOSE: 2.0 - 3.0 Includes: PROPHYLAXIS forvenous thrombosis, systemic embolization; TREATMENT for venous thrombosis and/or pulmonary embolus.HIGH RISK: Target INR is 2.5-3.5 for patients with mechanical heart valves.CBC W/PLT COUNT & AUTO [id number] 02:07:00 Test Item Value Reference Range Comments WHITE BLOOD CELL COUNT (BEAKER) (test awur=661) 6.9 K/ L 3.5-10.5 RED BLOOD CELL COUNT (BEAKER) (test jjwz=817) 2.75 M/ L 4.63-6.08 HEMOGLOBIN (BEAKER) (test liaq=673) 9.2 GM/DL 13.7-17.5 HEMATOCRIT (BEAKER) (test nnpq=530) 27.8 % 40.1-51.0 MEAN CORPUSCULAR VOLUME (BEAKER) (test ziqi=696) 101.1 fL 79.0-92.2 MEAN CORPUSCULAR HEMOGLOBIN (BEAKER) (test 33.5 pg 25.7-32.2 qgbj=056) MEAN CORPUSCULAR HEMOGLOBIN CONC (BEAKER) (test 33.1 GM/DL 32.3-36.5 yukd=870) RED CELL DISTRIBUTION WIDTH (BEAKER) (test 15.9 % 11.6-14.4 erst=584) PLATELET COUNT (BEAKER) (test xpjf=542) 123 K/CU MM 150-450 MEAN PLATELET VOLUME (BEAKER) (test mxpb=214) 8.8 fL 9.4-12.4 NUCLEATED RED BLOOD CELLS (BEAKER) (test 0 /100 WBC 0-0 ihop=487) NEUTROPHILS RELATIVE PERCENT (BEAKER) (test 67 % nfcp=795) LYMPHOCYTES RELATIVE PERCENT (BEAKER) (test 13 % wfjc=608) MONOCYTES RELATIVE PERCENT (BEAKER) (test 15 % ovho=725) EOSINOPHILS RELATIVE PERCENT (BEAKER) (test 4 % vjau=733) BASOPHILS RELATIVE PERCENT (BEAKER) (test 1 % mwth=001) NEUTROPHILS ABSOLUTE COUNT (BEAKER) (test 4.58 K/ L 1.78-5.38 ruab=704) LYMPHOCYTES ABSOLUTE COUNT (BEAKER) (test 0.89 K/ L 1.32-3.57 jlvn=555) MONOCYTES ABSOLUTE COUNT (BEAKER) (test 1.04 K/ L 0.30-0.82 yggt=922) EOSINOPHILS ABSOLUTE COUNT (BEAKER) (test 0.28 K/ L 0.04-0.54 szzk=424) BASOPHILS ABSOLUTE COUNT (BEAKER) (test 0.04 K/ L 0.01-0.08 zcmc=557) IMMATURE GRANULOCYTES-RELATIVE PERCENT (BEAKER) 1 % 0-1 (test chqe=4091)
[2019-04-03] MEDS ORDERED: LORazepam 2 MG/ML VIAL IV PRN (15:17)
[2019-04-03] MEDS ORDERED: MORPHINE 4 MG/ML SYR IV PRN ×2 (15:17→16:42)
[2019-04-03] MEDS ORDERED: ATROPINE 1% OPTH DROPS 5ML OPTH SCH (15:30)
[2019-04-03] MEDS ORDERED: SCOPOLAMINE HYDROBROMIDE PATCH TD SCH (15:45)
[2019-04-03] MEDS: ATROPINE 1% OPTH DROPS 5ML SL SCH ×2 (16:00→20:50)
[2019-04-03] MEDS ORDERED: HYDROMORPHONE HCL 1 MG/ML INJ IV PRN (16:41)
[2019-04-03] MEDS: LORazepam 2 MG/ML VIAL IV SCH ×3 (19:00→23:26)
[2019-04-03] MEDS: MORPHINE 4 MG/ML SYR IV SCH ×3 (19:50→23:00)
[2019-04-04] MEDS: ATROPINE 1% OPTH DROPS 5ML SL SCH ×6 (00:57→20:45)
[2019-04-04] MEDS: LORazepam 2 MG/ML VIAL IV SCH ×12 (00:57→23:00)
[2019-04-04] MEDS: MORPHINE 4 MG/ML SYR IV SCH ×12 (00:57→22:57)
[2019-04-05] MEDS: ATROPINE 1% OPTH DROPS 5ML SL SCH ×6 (00:14→20:15)
[2019-04-05] MEDS: MORPHINE 4 MG/ML SYR IV SCH ×11 (01:00→20:16)
[2019-04-05] MEDS: LORazepam 2 MG/ML VIAL IV SCH ×11 (01:14→20:15)
--- NOTE | 2019-04-08 18:45 | P.DS ---
Admission Date: 04/03/19 Discharge Date: 04/08/19 Disposition: Discharge Condition: Reason for Admission: Inpatient Hospice - Problems (1) Admission for hospice care Status: Acute (2) Alcoholic cirrhosis of liver Status: Chronic Qualifiers: Ascites presence: with ascites Qualified Code(s): K70.31 - Alcoholic cirrhosis of liver with ascites (3) Hepatic encephalopathy Status: Chronic (4) Sepsis Status: Acute Qualifiers: Sepsis type: sepsis due to unspecified organism Qualified Code(s): A41.9 - Sepsis, unspecified organism Brief History of Present Illness: SEE HPI Hospital Course: Pt was admitted under Inpatient Hospice with dx of Sepsis with Acute Worsening. Pt was kept comfortable and within 48hrs of admission. Vital Signs/Physical Exam: Temp Pulse Resp BP Pulse Ox 98.3 F 90 10 L 88/41 L 94 04/05/19 20:00 04/05/19 20:00 04/05/19 20:00 04/05/19 20:00 04/05/19 20:00 General: Other (Pt . ) Respiratory: Other (No heart Sounds) Home Medications: Bumetanide [Bumex*] 1 mg PO BID 03/26/19 Lactulose [Cephulac*] 30 ml PO BID PRN 03/26/19 Rifaximin [Xifaxan] 550 mg PO BID 03/26/19 Spironolactone 100 mg PO DAILY 03/26/19
== END 2019-04-05 23:50 | disposition expired | DRG 951 ==
LOC: 3RD-ICU 15:07 → 4TH 04-04 09:47
PROVIDERS: ADMIT Family Medicine; ATTEND Family Medicine
DX: Z51.5 Encounter for palliative care (principal); K72.90 Hepatic failure, unspecified without coma
CPT/HCPCS: J1170